=== PATIENT | female | born 1950 | race Caucasian/White ===

== ENCOUNTER 2020-08-26 15:00 | Outpatient (REF) | payer MEDICARE, SELFPAY ==
[2020-08-26 16:37] LABS: Hematocrit 39.8 % (37-47); Hemoglobin 12.3 g/dl (12.0-16.0); Mean Corpuscular HGB Conc 30.9 g/dl (31.0-35.0); Mean Corpuscular Hemoglobin 29.3 pg (27.0-33.0); Mean Corpuscular Volume 94.8 fL (80-98); Mean Platelet Volume 10.4 fL (9.4-12.3); Platelet Count 260 X10*3/uL (160-400); Red Cell Distribution Width 13.5 % (11.0-16.0); White Blood Count 7.5 X10*3/uL (4.8-10.8)
[2020-08-26 17:00] LABS: Alanine Aminotransferase 9 U/L (0-31); Albumin Level 4.5 g/dL (3.5-5.0); Alkaline Phosphatase 61 U/L (39-117); Anion Gap 12 (12-20); Aspartate Amino Transferase 13 U/L (5-31); Bilirubin Total 0.4 mg/dL (0.0-1.0); Blood Urea Nitrogen 24 mg/dL (9-16); Calcium 9.1 mg/dL (8.4-10.2); Carbon Dioxide 29 mmol/L (22-29); Chloride 107 mmol/L (96-108); Estimated Glomerular Filt Rate > 60; Glucose Random 86 mg/dL (60-115); Potassium 4.4 mmol/l (3.3-5.1); Sodium 144 mmol/L (135-145); Total Protein 7.2 g/dL (6.5-8.0)
== END 2020-08-26 15:01 | disposition home or self-care (01) ==
LOC: HO.HMGCLDS 15:00
PROVIDERS: PCP Internal Medicine; Visit Provider Internal Medicine
DX: K21.9 Gastro-esophageal reflux disease without esophagitis (principal); I10 Essential (primary) hypertension
CPT/HCPCS: 36415; 80053; 84443; 85027

== ENCOUNTER 2021-09-26 09:57 | Outpatient (REF) | payer MEDICARE, SELFPAY ==
--- NOTE | ~2021-09-26 | FL_ITS ---
EXAMINATION: FL BARIUM SWALLOW CLINICAL INFORMATION: Wheezing. Gastroesophageal reflux disease. Abnormal chest x-ray. COMPARISON: Previous chest x-ray September 2019 TECHNIQUE: Barium swallow examination is performed using fluoroscopic evaluation in addition to multiple fluoroscopic spot views. The patient is imaged both upright and prone and using both thick and thin sulfate along with effervescent granules. Barium tablet was also administered. Fluoroscopy time: 1.3 minutes DAP: 7.5 Gycm2 Images: 52 FINDINGS: The swallowing mechanism is normal. No aspiration or penetration is seen. Esophageal motility is normal. There is a moderate-size paraesophageal hernia. There is severe gastroesophageal reflux. There is mild narrowing and irregularity of the distal thoracic esophagus questionable for mild stricture. Barium tablet did not get stuck in this region and passed freely into the stomach. FL/FL barium swallow IMPRESSION: Moderate-sized paraesophageal hernia. Severe gastroesophageal reflux. Mild narrowing and mucosal irregularity of the distal thoracic esophagus questionable for a stricture. Follow-up endoscopy should be considered.
== END 2021-09-26 09:58 | disposition home or self-care (01) ==
LOC: HO.XRAY 09:57
PROVIDERS: PCP Internal Medicine; Visit Provider Internal Medicine
DX: R06.2 Wheezing (principal); K21.9 Gastro-esophageal reflux disease without esophagitis; R93.89 Abnormal findings on diagnostic imaging of other specified body structures
CPT/HCPCS: 74220

== ENCOUNTER 2022-12-21 11:45 | Emergency (ER) | payer MEDICARE, SELFPAY ==
--- NOTE | ~2022-12-21 | XR_ITS ---
EXAMINATION: XR FOOT, LEFT XR FOOT, RIGHT CLINICAL INFORMATION: Bilateral foot pain COMPARISON: None TECHNIQUE: 3 views of the left foot. 3 views of the right foot. FINDINGS: Left foot: No fracture or dislocation. Alignment maintained. Degenerative change of the tarsometatarsal articulation with osteophyte formation at the dorsal aspect of the navicular. Plantar heel spur. Mild diffuse soft tissue swelling. Right foot: No fracture or dislocation. Alignment maintained. Prominent plantar heel spur. Soft tissue swelling of the forefoot. XR/XR foot LT min 3V IMPRESSION: Bilateral plantar heel spurs. Degenerative change at the left midfoot at the tarsometatarsal articulation. Bilateral soft tissue swelling.
--- NOTE | ~2022-12-21 | XR_ITS ---
EXAMINATION: XR FOOT, LEFT XR FOOT, RIGHT CLINICAL INFORMATION: Bilateral foot pain COMPARISON: None TECHNIQUE: 3 views of the left foot. 3 views of the right foot. FINDINGS: Left foot: No fracture or dislocation. Alignment maintained. Degenerative change of the tarsometatarsal articulation with osteophyte formation at the dorsal aspect of the navicular. Plantar heel spur. Mild diffuse soft tissue swelling. Right foot: No fracture or dislocation. Alignment maintained. Prominent plantar heel spur. Soft tissue swelling of the forefoot. XR/XR foot RT min 3V IMPRESSION: Bilateral plantar heel spurs. Degenerative change at the left midfoot at the tarsometatarsal articulation. Bilateral soft tissue swelling.
[2022-12-21 11:53] VITALS: BP 111/61; BP 137/72; PULSE 75; PULSE 77; RESP 16; TEMP 36.7; O2SAT 98; BMI 27.3
[2022-12-21 12:04] VITALS: BP 111/61; PULSE 75; RESP 16; TEMP 36.7; O2SAT 98
--- NOTE | 2022-12-21 12:04 | PC.NURSE ---
pt has stage 2 pressure injuries to JOSUE buttocks - photo sent via [id number] outdoors to provider
--- NOTE | 2022-12-21 13:17 | ED_ITS ---
HPI - General Adult General Chief complaint: General Medical Stated complaint: Pain/swelling in feet and ankles per EMS Time Seen by Provider: 12/21/22 13:01 Source: patient Mode of arrival: ambulatory Limitations: no limitations History of Present Illness HPI narrative: 72-year-old female presents emergency room complaining of bilateral foot pain. She states being on for several months but worse the past 3 weeks. Patient had a bandage but on her right toe over a month ago which he has not removed she states she had some bleeding in the area she denies any falls or injuries she states she lives alone has difficulty ambulating she denies fevers chills cough or shortness of breath. Onset (ago): month(s) Location: lower extremity Related Data Allergies Allergy/AdvReac Type Severity Reaction Status Date / Time Penicillins Allergy Hives Verified 12/21/22 12:01 Review of Systems Review of Systems: Review of systems: General: Patient denies any fever chills recent illness or falls Musculoskeletal: Denies back pain or body aches or other injuries HEENT: denies headache, runny nose, ear pain Respiratory: denies shortness of breath, cough Cardiovascular: no chest pain or palpitations : denies dysuria, frequency Abdomen: no nausea vomiting denies abdominal pain Extremities: no swelling, no pain Skin: no diaphoresis Yes all other systems are reviewed and are negative PMFSH Social History Social History Alcohol intake: never Smoked in Last 30 Days: No Use of substances other than those prescribed or required for medical reasons: No Advance Directives: No Advance Directives Information Provided: No Physical Exam ED Vital Signs: Vital Signs - 24 hr 12/21/22 11:53 12/21/22 12:04 12/21/22 14:29 Temperature 98.0 F 98.0 F 98.1 F Pulse Rate 75 75 62 Respiratory Rate 16 16 18 Blood Pressure 111/61 111/61 123/61 Pulse Oximetry 98 98 95 Oxygen Delivery Method Room Air Room Air Room Air BMI result Body Mass Index 27.3 General: Well-appearing well-nourished in no signs of distress HEENT: Normocephalic atraumatic Neck: No signs of JVD, no masses no tenderness or lymphadenopathy Cardiovascular: Regular rate and rhythm Respiratory: Clear to auscultation bilaterally Abdomen: Soft nontender no masses Extremities: Normal pedal pulses no signs of edema foot pain bialteral no signs of cellululitis non tender lots of extra skin I did remove the bandage from the toe and it was tender but it was not black no redness or wound seen. Skin: Dry warm no rashes Back: No tenderness full ROM Medications Administered Discontinued Medications Generic Name Dose Route Start Last Admin Trade Name Freq PRN Reason Stop Dose Admin Sodium Chloride 1,000 mls @ 999 mls/hr 12/21/22 13:30 12/21/22 13:57 Ns IV 12/21/22 14:30 999 mls/hr .Q1H1M [facility] Administration Medical Decision Making Medical Decision Making MDM Narrative: I will check labs including CRP and ESR for osteomyelitis was CBC and BMP and feet x-rays of bilateral feet. XR and labs are all normal patient lives alone has decubitus ulcer to buttucks and need to be watched and see PT and case management for safety. Differential Diagnosis Differential Diagnoses: The differential diagnosis associated with the presentation includes Osteomyelitis chronic foot pain Lab Data 12/21/22 13:52 12/21/22 13:52 Labs: Lab Results 12/21/22 12/21/22 12/21/22 Range/Units 13:52 13:52 13:52 WBC 6.3 (4.8-10.8) X10*3/uL RBC 3.67 L (4.20-5.50) X10*6/uL Hgb 10.6 L (12.0-16.0) g/dl Hct 34.0 L (37.0-47.0) % MCV 92.6 (80.0-98.0) fL MCH 28.9 (27.0-33.0) pg MCHC 31.2 (31.0-35.0) g/dl RDW 13.4 (11.0-16.0) % Plt Count 199 (160-400) X10*3/uL MPV 10.0 (9.4-12.3) fL Immature Gran % (Auto) 0.3 (0.0-0.4) % Neut % (Auto) 77.0 H (45-73) % Lymph % (Auto) 16.0 L (20-40) % [place] % (Auto) 5.4 (2-11) % Eos % (Auto) 0.8 (0-4) % Baso % (Auto) 0.5 (0-2) % Lymph # (Auto) 1.0 L (1.2-4.9) X10*3/uL [place] # (Auto) 0.3 (0.1-1.2) X10*3/uL Eos # (Auto) 0.1 (0.0-0.4) X10*3/uL Baso # (Auto) 0.0 (0.0-0.2) X10*3/uL Abs Immat Gran (auto) 0.02 (0.00-0.03) X10*3/uL Absolute Neuts (auto) 4.9 (2.0-8.3) x10*3/uL Absolute Nucleated RBC 0.000 (0.0-0.012) X10*3/uL Nucleated RBC % (auto) 0.0 (0.0-0.2) /100WBC ESR (0-20) MM/HR Sodium 143 (135-145) mmol/L Potassium 4.3 (3.3-5.1) mmol/L Chloride 112 H (96-108) mmol/L Carbon Dioxide 28 (22-29) mmol/L Anion Gap 7 L (12-20) BUN 30 H (9-16) mg/dL Creatinine 1.04 (0.5-1.4) mg/dL Estim Creat Clear Calc 44.5 Estimated GFR 52 Random Glucose 109 (60-115) mg/dL Lactic Acid 0.9 (0.5-2.0) mmol/L Calcium 9.1 (8.4-10.2) mg/dL C-Reactive Protein 0.91 H (< or = 0.50) mg/dL 12/21/22 Range/Units 13:52 WBC (4.8-10.8) X10*3/uL RBC (4.20-5.50) X10*6/uL Hgb (12.0-16.0) g/dl Hct (37.0-47.0) % MCV (80.0-98.0) fL MCH (27.0-33.0) pg MCHC (31.0-35.0) g/dl RDW (11.0-16.0) % Plt Count (160-400) X10*3/uL MPV (9.4-12.3) fL Immature Gran % (Auto) (0.0-0.4) % Neut % (Auto) (45-73) % Lymph % (Auto) (20-40) % [place] % (Auto) (2-11) % Eos % (Auto) (0-4) % Baso % (Auto) (0-2) % Lymph # (Auto) (1.2-4.9) X10*3/uL [place] # (Auto) (0.1-1.2) X10*3/uL Eos # (Auto) (0.0-0.4) X10*3/uL Baso # (Auto) (0.0-0.2) X10*3/uL Abs Immat Gran (auto) (0.00-0.03) X10*3/uL Absolute Neuts (auto) (2.0-8.3) x10*3/uL Absolute Nucleated RBC (0.0-0.012) X10*3/uL Nucleated RBC % (auto) (0.0-0.2) /100WBC ESR 28 H (0-20) MM/HR Sodium (135-145) mmol/L Potassium (3.3-5.1) mmol/L Chloride (96-108) mmol/L Carbon Dioxide (22-29) mmol/L Anion Gap (12-20) BUN (9-16) mg/dL Creatinine (0.5-1.4) mg/dL Estim Creat Clear Calc Estimated GFR Random Glucose (60-115) mg/dL Lactic Acid (0.5-2.0) mmol/L Calcium (8.4-10.2) mg/dL C-Reactive Protein (< or = 0.50) mg/dL Discharge Plan Discharge Clinical Impression: Adult failure to thrive, Acute foot pain, Decubital ulcer Patient Disposition: Still a Patient
[2022-12-21] MEDS: 0.9 % Sodium Chloride 1,000 ML 999 ML IV (13:57)
[2022-12-21 14:01] LABS: MANUAL DIFF FLAG NO
--- NOTE | 2022-12-21 14:01 | PC.NURSE ---
pt tearful when discussing plan of care, reporting she does not want to go to a custodial but also has fears about going home without change to her feet.
[2022-12-21 14:11] LABS: Basophils Percent Auto 0.5 % (0-2); Eosinophils Absolute Auto 0.1 X10*3/uL (0.0-0.4); Eosinophils Percent Auto 0.8 % (0-4); Hemoglobin 10.6 g/dl (12.0-16.0); Imm Gran Abs Auto 0.02 X10*3/uL (0.00-0.03); Imm Gran Pct Auto 0.3 % (0.0-0.4); Mean Corpuscular HGB Conc 31.2 g/dl (31.0-35.0); Mean Corpuscular Hemoglobin 28.9 pg (27.0-33.0); Mean Corpuscular Volume 92.6 fL (80.0-98.0); Monocytes Absolute Auto 0.3 X10*3/uL (0.1-1.2); Monocytes Percent Auto 5.4 % (2-11); Neutrophils Absolute Auto 4.9 x10*3/uL (2.0-8.3); Platelet Count 199 X10*3/uL (160-400); Red Blood Count 3.67 X10*6/uL (4.20-5.50); Red Cell Distribution Width 13.4 % (11.0-16.0); White Blood Count 6.3 X10*3/uL (4.8-10.8)
[2022-12-21 14:24] LABS: Lactic Acid 0.9 mmol/L (0.5-2.0)
[2022-12-21 14:28] LABS: Anion Gap 7 (12-20); Blood Urea Nitrogen 30 mg/dL (9-16); C Reactive Protein 0.91 mg/dL (< or = 0.50); Calcium 9.1 mg/dL (8.4-10.2); Carbon Dioxide 28 mmol/L (22-29); Chloride 112 mmol/L (96-108); Creatinine Clr Calc Pharmacy 44.5; Estimated Glomerular Filt Rate 52; Glucose Random 109 mg/dL (60-115); Potassium 4.3 mmol/L (3.3-5.1); Sodium 143 mmol/L (135-145)
[2022-12-21 14:29] VITALS: BP 123/61; PULSE 62; RESP 18; TEMP 36.7; O2SAT 95
[2022-12-21 14:49] LABS: Erythrocyte Sedimentation Rate 28 MM/HR (0-20)
--- NOTE | 2022-12-21 15:35 | PC.NURSE ---
pt up to bedside commode with great difficulty. reports being unable to put pressure on her L foot
[2022-12-21 18:56] VITALS: BP 123/59; PULSE 66; RESP 14; O2SAT 98
--- NOTE | 2022-12-21 18:57 | PC.NURSE ---
pharmacy at bedside to complete med rec
--- NOTE | 2022-12-21 20:04 | PHA.MEDREC ---
Pharmacy Consult ? Medication Reconciliation Pharmacy has completed the medication reconciliation. med rec completed. spoke with patient.
--- NOTE | 2022-12-21 20:48 | PC.NURSE ---
pt agreeable to using call ruiz to let ed staff know when she needs to use restroom. pt expressed she would like to use bedpan as getting up to bedside commode is very uncomfortable for her at this time. pt given call ruiz and belongings placed within reach. pt expresses no new needs at this time
[2022-12-21 23:10] VITALS: BP 135/67; PULSE 66; RESP 16
--- NOTE | 2022-12-21 23:14 | MHC.CM.ED ---
CM met with patient at request of Dr. Liu. A&Ox4. Independent. Lives alone. No HCP. Reviewed, completed and signed. Copies given. Uploaded into Care Port and [facility] Expanse. HCP/son Nolberto Che ([phone]). Cane. [facility] grocery shops 2 hours/wk.[employer] x2/booster x2. [employer] at [facility] Amada Marcum. PT pending. Pt having difficulty with ADL's with foot pain and swelling. Medical work-up negative. Agreeable to STR if recommended. 22 referrals placed. Care Port given. Please review Care Port with bed offers to patient. Vision poor. Covid Screen Pending.. CM following for discharge planning needs.
[2022-12-21 23:32] VITALS: BP 123/55; PULSE 65; RESP 19; TEMP 36.6; O2SAT 97
--- NOTE | 2022-12-21 23:33 | MHC.EDTECH ---
PT 1x assisted off bedpan. Pt 1x with pericare. Pt bed pads changed and Pt 1x assisted with laying on right side. PT given warm blankets and call ruiz in reach
[2022-12-21 23:57] LABS: COVID-19 Test Negative (Negative); IDNOW Serial# 6674DD1D
--- NOTE | 2022-12-22 00:15 | PC.NURSE ---
pt reports to this rn acid reflux after eating dinner that was very acidic . pt asked this rn if she could get her normal dose of omeprazole 40mg po. this rn informed dr garcia of pt request. per dr jose moulton to place order
--- NOTE | 2022-12-22 00:26 | PC.NURSE ---
this rn attempted to medicate pt. pt states she does not want omeprazole as she took her scheduled dose this morning. states she would like maalox . this rn returned refused omeprazole to [facility]. this rn discussed this with dr garcia. per dr. garcia pt okay to give oral maalox kemar.
[2022-12-22] MEDS: Magnesium Hydrox/Alum Hydrox 30 ML ORAL.SUSP PO ×2 (01:33→10:27)
--- NOTE | 2022-12-22 01:38 | PC.NURSE ---
this rn assumed care of pt from triage @ 0110. iv placed in R and L ac. pt medicated according to mar. blood work obtained and sent down to lab. pt placed on tanning wheel filler. ed provider and respiratory therapist at bedside. pt placed on 3 L O2 NC spo2 94%. pt coughing up small amount of blood camryn velazquez observed this during bedside assessment. pt family member present at bedside. pt awaiting chest xray
[2022-12-22 05:52] VITALS: BP 122/67; PULSE 59; RESP 16; TEMP 36.8; O2SAT 96
[2022-12-22] MEDS: Omeprazole 40 MG CAPSULE.DR PO (08:52)
[2022-12-22] MEDS: Tolterodine Tartrate LA 4 MG CAP.ER.24H PO (08:52)
[2022-12-22] MEDS: Spironolactone 25 MG TABLET PO (08:52)
[2022-12-22] MEDS: amLODIPine Besylate 5 MG TABLET PO (08:52)
[2022-12-22 09:00] VITALS: BP 115/55; PULSE 63; RESP 18; TEMP 36.4; O2SAT 98
[2022-12-22] MEDS: Butalb/Acetamin/Caff 50/325/40 TABLET 1 TAB PO (10:32)
[2022-12-22 10:40] VITALS: BP 121/62; PULSE 63; RESP 18; O2SAT 97
[2022-12-22 10:47] LABS: MANUAL DIFF FLAG NO
[2022-12-22 10:49] LABS: Basophils Percent Auto 0.6 % (0-2); Eosinophils Absolute Auto 0.1 X10*3/uL (0.0-0.4); Hematocrit 33.1 % (37.0-47.0); Hemoglobin 10.6 g/dl (12.0-16.0); Imm Gran Abs Auto 0.02 X10*3/uL (0.00-0.03); Imm Gran Pct Auto 0.4 % (0.0-0.4); Lymphocytes Percent Auto 18.3 % (20-40); Mean Corpuscular Hemoglobin 28.9 pg (27.0-33.0); Mean Corpuscular Volume 90.2 fL (80.0-98.0); Mean Platelet Volume 9.6 fL (9.4-12.3); Monocytes Absolute Auto 0.3 X10*3/uL (0.1-1.2); Monocytes Percent Auto 4.8 % (2-11); Neutrophils Absolute Auto 3.9 x10*3/uL (2.0-8.3); Neutrophils Percent Auto 74.9 % (45-73); Platelet Count 174 X10*3/uL (160-400); Red Blood Count 3.67 X10*6/uL (4.20-5.50); Red Cell Distribution Width 13.3 % (11.0-16.0); White Blood Count 5.2 X10*3/uL (4.8-10.8)
--- NOTE | 2022-12-22 13:16 | MHC.CM.ED ---
Met with pt to discuss d/c planning: reviewed list of STR centers: Pt accepted at [facility]: Jason BLISSS to transport today at 3:30pm. Pt and ED care team in agreement with plan.
[2022-12-22 16:00] VITALS: BP 125/63; PULSE 65; RESP 16; TEMP 36.6; O2SAT 97
--- NOTE | 2022-12-22 16:00 | MHC.EDTECH ---
this pct assumed care of pt at 1500 ,1600 rounding and vitals sign taken ,pt is waiting to be transport to snf facility.
== END 2022-12-22 17:09 | disposition skilled nursing facility (03) ==
PROVIDERS: Physician Assistant; Emergency Provider Student in an Organized Health Care Education/Training Program; PCP Internal Medicine
DX: R62.7 Adult failure to thrive (principal); M79.672 Pain in left foot; M79.671 Pain in right foot; L89.620 Pressure ulcer of left heel, unstageable; L89.619 Pressure ulcer of right heel, unspecified stage; R26.81 Unsteadiness on feet; Z20.822 Contact with and (suspected) exposure to COVID-19; Z20.828 Contact with and (suspected) exposure to other viral communicable diseases; Z79.899 Other long term (current) drug therapy
CPT/HCPCS: 36415; 73630; 80048; 83605; 85025; 85652; 86140; 87635; 96360; 96361; 97161; 99284

== ENCOUNTER 2023-12-12 10:38 | Emergency (ER) | payer MEDICARE, SELFPAY ==
--- NOTE | ~2023-12-12 | XR_ITS ---
EXAMINATION: XR LUMBOSACRAL SPINE CLINICAL INFORMATION: Low back pain. COMPARISON: None available. TECHNIQUE: Three views of the lumbosacral spine. FINDINGS: Bones are osteopenic. Marked facet arthropathy is present at of L4-L5 with borderline grade 1/grade 2 anterolisthesis. Vertebral body heights are normal. No fractures. Jnjv-jx-zzeztveg multilevel degenerative disc disease is characterized by loss of vertebral disc height and endplate osteophytes, most notably at L2-L3 and L4-L5. SI joints are unremarkable. No fractures. Moderate to large volume of stool in the colon. No acute soft tissue findings. XR/XR lumbar spine 2-3V IMPRESSION: 1. Marked facet arthropathy at L4-L5 with borderline grade 1/grade 2 anterolisthesis. 2. Fogx-fs-pfqhgadb multilevel degenerative disc disease. 3. No acute fractures.
--- NOTE | 2023-12-12 10:42 | ED_ITS ---
HPI - General Adult General Chief complaint: Back Pain/Injury Stated complaint: LOW BACK PAIN,UNABLE TO AMBULATE,SEEKING REHAB Time Seen by Provider: 12/12/23 10:42 Source: patient and EMS Mode of arrival: EMS Limitations: no limitations History of Present Illness HPI narrative: Patient is a 73 year old assigned female at with a history of chronic low back pain presenting to the emergency department today with acute on chronic low back pain. Patient states that 3 weeks ago she was given gabapentin for this back pain and told by her PCP That if it does not get better in 3 weeks, she should go to the ER to be placed in short term rehab because the pain is making it difficult for her to be at home. Patient denies any dizziness, lightheadedness, abdominal pain, nausea, vomiting, fever, chills, blurry vision, double vision, loss of vision, chest pain, difficulty breathing, shortness of breath, night sweats, pain with urination, increased urinary frequency, increased urinary urgency, blood in her urine or stool, syncope or a near syncopal episode, recent trauma or falls, bowel incontinence, bladder incontinence, bowel retention, bladder retention, or any other complaints at this time. Onset (ago): month(s) Location: back Severity: mild Severity scale (1-10): 4 Relieving factors: none Exacerbating factors: none Associated symptoms: denies other symptoms Treatments prior to arrival: other (gabapentin) Related Data Home Medications Medication Instructions Recorded Confirmed acetaminophen 500 mg tablet 1,000 mg PO BEDTIME 12/21/22 12/21/22 albuterol sulfate 90 mcg/actuation 2 puff inhalation Q6H PRN wheezing 12/21/22 12/21/22 aerosol inhaler amlodipine 5 mg tablet 1 tab PO DAILY 12/21/22 12/21/22 mbiylbwmfq-avncnlqhawseb-lnnffyjn 1 tab PO BID PRN Headache 12/21/22 12/21/22 50 mg-325 mg-40 mg tablet lisinopril 40 mg tablet 1 tab PO BEDTIME 12/21/22 12/21/22 omeprazole 40 mg capsule,delayed 1 cap PO DAILY 12/21/22 12/21/22 release sodium bicarbonate 1,650 mg-citric 1 tab PO DAILY PRN Heartburn 12/21/22 12/21/22 acid 1,000 mg effervescent tablet ([place] Heartburn) solifenacin 5 mg tablet 1 tab PO DAILY 12/21/22 12/21/22 spironolactone 25 mg tablet 1 tab PO DAILY 12/21/22 12/21/22 Allergies Allergy/AdvReac Type Severity Reaction Status Date / Time Penicillins Allergy Hives Verified 12/21/22 12:01 Review of Systems 2 Constitutional: Constitutional: Reports no additional constitutional complaints, Denies chills, Denies fever(s) and Denies night sweats Eyes: Eyes: Reports no additional eye complaints, Denies blurry vision, Denies change in vision, Denies diplopia, Denies eye discharge, Denies loss of vision and Denies eye pain ENT: Denies dizziness Cardiovascular: Cardiovascular: Reports no additional cardiovascular complaints, Denies chest pain, Denies lightheadedness, Denies Loss of Consciousness and Denies dyspnea Respiratory: Respiratory: Reports no additional respiratory complaints and Denies dyspnea Gastrointestinal: Gastrointestinal: Reports no additional gastrointestinal complaints, Denies abdominal pain, Denies melena, Denies hematochezia, Denies change in bowel habits and Denies change in stool character Genitourinary: Genitourinary: Denies hematuria, Denies urinary frequency, Denies dysuria, Denies urinary incontinence, Denies urinary hesitancy and Denies urinary urgency Musculoskeletal: Musculoskeletal: Reports no additional musculoskeletal complaints, Reports back pain, Denies numbness and Denies tingling Neurologic: Denies dizziness, Denies loss of vision, Denies numbness and Denies tingling Psychiatric: Psychiatric: Reports no additional psychiatric complaints Endocrine: Endocrine: Reports no additional endocrine complaints Hematologic/Lymphatic: Hematologic/Lymphatic: Reports no additional hematologic/lymphatic complaints Allergic/Immunologic: Allergic/Immunologic: Reports no additional allergic/immunologic complaints [facility] Past Medical History Attestation statement: The following information was validated with the patient. Source: old records reviewed and nursing notes reviewed Social History Social History Alcohol intake: never Smoked in Last 30 Days: No Use of substances other than those prescribed or required for medical reasons: No Advance Directives: Yes Advance Directives on File: Yes Advance Directives Date on File: 12/22/22 Physical Exam ED Vital Signs: Vital Signs - 24 hr 12/12/23 10:49 12/12/23 10:55 12/12/23 13:11 Temperature 97.9 F 97.9 F 98 F Pulse Rate 65 65 62 Respiratory Rate 16 18 16 Blood Pressure 146/66 H 146/66 H 146/72 H Pulse Oximetry 100 100 100 Oxygen Delivery Method Room Air Room Air Room Air BMI result Body Mass Index 22.5 Const General: cooperative, no acute distress, alert and awake Nutritional Appearance: well nourished Orientation/consciousness: patient oriented x3 Limitations: no limitations HENMT Head: Yes normal to inspection and Yes atraumatic Ears: hearing grossly normal bilaterally and external ears normal General nose exam: Normal external nose present, no nasal discharge noted and no epistaxis Face and sinus: Yes normal facial exam, No abrasion and No laceration Mouth: Normal oral and palatal mucosa present, no drooling and no muffled voice Eyes General: appearance normal, both eyes and all related structures Periorbital: periorbital findings normal Eyelids: Yes eyelids normal Conjunctivae: conjunctivae normal Pupils: Equal, round and reactive pupils present EOM: EOMs intact bilaterally Neck Neck: Yes normal visual inspection, Yes full ROM and Yes no lymphadenopathy Chest Chest palpation & inspection: normal inspection of the chest Resp Effort & Inspection: normal respiratory effort and able to speak in complete sentences GI Inspection: Yes normal to inspection General: Yes no CVA tenderness Back/Spine/Pelvis Back: no CVA tenderness Cervical Spine: normal cervical lordosis and cervical ROM normal Thoracic/Lumbar Spine: thoracic and lumbar spine normal to inspection Pelvis: no pain with anterior-posterior compression Neuro General: patient oriented x3 and moves all extremities Cranial nerves: Yes Equal, round and reactive pupils present Cognition (Neuro): normal cognition Motor exam (neuro): 5/5 motor strength present throughout Sensory Exam: Normal double simultaneous stimulation for sensation Coordination: tzifvf-eo-opju test normal Extrem General: Yes normal to inspection, Yes full ROM and Yes capillary refill normal Psych Appearance: grossly normal Mental Status: mental status grossly normal Affect: normal affect Attitude: cooperative Thought process: Normal thought process present Thought content: Normal thought content present Insight: Good insight present (Psych) Medical Decision Making Medical Decision Making MDM Narrative: Patient is a 73 year old assigned female at with a history of chronic back pain presenting to the emergency department today with low back pain. Patient's physical exam was unremarkable. Patient's blood work was unremarkable. Patient's urine showed no acute process. Patient's lumbar x-ray showed no acute process. I explained my physical exam findings as well as all test results to the patient. I answered all questions asked by the patient. Patient requested to be evaluated by physical therapy and case management for short term rehab placement. Differential Diagnosis Differential Diagnoses: The differential diagnosis associated with the presentation includes Low back pain Chronic back pain Inability to ambulate Admission/Observation Consideration of admission/observation: Escalation of care including admission/observation considered Patient would have been admitted to the hospital had her work up had any findings where hospital admission was appropriate and her clinical presentation warranted hospital admission. Lab Data [facility] Lab Attestation statement: I reviewed the patient's lab results. My interpretation of these results are in the [facility] Rationale portion of this note. 12/12/23 11:31 12/12/23 11:31 Labs: Lab Results 12/12/23 12/12/23 12/12/23 Range/Units 11:31 11:33 13:08 WBC 6.2 (4.8-10.8) X10*3/uL RBC 3.75 L (4.20-5.50) X10*6/uL Hgb 11.3 L (12.0-16.0) g/dl Hct 34.9 L (37.0-47.0) % MCV 93.1 (80.0-98.0) fL MCH 30.1 (27.0-33.0) pg MCHC 32.4 (31.0-35.0) g/dl RDW 13.7 (11.0-16.0) % Plt Count 179 (160-400) X10*3/uL MPV 10.2 (9.4-12.3) fL Immature Gran % (Auto) 0.5 H (0.0-0.4) % Neut % (Auto) 75.8 H (45-73) % Lymph % (Auto) 17.8 L (20-40) % [place] % (Auto) 5.0 (2-11) % Eos % (Auto) 0.6 (0-4) % Baso % (Auto) 0.3 (0-2) % Lymph # (Auto) 1.1 L (1.2-4.9) X10*3/uL [place] # (Auto) 0.3 (0.1-1.2) X10*3/uL Eos # (Auto) 0.0 (0.0-0.4) X10*3/uL Baso # (Auto) 0.0 (0.0-0.2) X10*3/uL Abs Immat Gran (auto) 0.03 (0.00-0.03) X10*3/uL Absolute Neuts (auto) 4.7 (2.0-8.3) x10*3/uL Absolute Nucleated RBC 0.000 (0.0-0.012) X10*3/uL Nucleated RBC % (auto) 0.0 (0.0-0.2) /100WBC Sodium 143 (135-145) mmol/L Potassium 4.7 (3.3-5.1) mmol/L Chloride 111 H (96-108) mmol/L Carbon Dioxide 26 (22-29) mmol/L Anion Gap 11 L (12-20) BUN 34 H (9-16) mg/dL Creatinine 1.02 (0.5-1.4) mg/dL Estim Creat Clear Calc 37.7 Estimated GFR 53 Random Glucose 92 (60-115) mg/dL Calcium 10.0 D (8.4-10.2) mg/dL Total Bilirubin 0.3 (0.0-1.0) mg/dL AST 13 (5-31) U/L ALT 9 (0-31) U/L Alkaline Phosphatase 46 (39-117) U/L Troponin I High Sens 5.3 (<3.5-17.0) ng/L B-Natriuretic Peptide 41 (<100) pg/mL Total Protein 6.7 (6.5-8.0) g/dL Albumin 4.0 (3.5-5.0) g/dL Urine Color Yellow Urine Appearance Clear Urine pH 7.0 (5.0-9.0) Ur Specific [place] 1.020 (1.005-1.025) Urine Protein Negative (Neg-Trace) mg/dL Urine Glucose (UA) Negative (Negative) mg/dL Urine Ketones Negative (Negative) mg/dL Urine Blood Negative (Negative) Urine Nitrite Negative (Negative) Ur Leukocyte Esterase Small (1+) H (Negative) Urine RBC 0-2 (0-2) /HPF Urine WBC 0-5 (0-5) /HPF Ur Squamous Epith Cells 3-5 (0-2) /HPF Urine Bacteria None Seen (None Seen) Hyaline Casts 0-2 (0-2) /LPF Independent Interpretation I performed an independent interpretation of an: Plain X-Ray Interpretation: My interpretation is in agreement with the radiologist's impression of this imaging study. - EXAMINATION: XR LUMBOSACRAL SPINE CLINICAL INFORMATION: Low back pain. COMPARISON: None available. TECHNIQUE: Three views of the lumbosacral spine. FINDINGS: Bones are osteopenic. Marked facet arthropathy is present at of L4-L5 with borderline grade 1/grade 2 anterolisthesis. Vertebral body heights are normal. No fractures. Rmuo-yf-gvtsllvi multilevel degenerative disc disease is characterized by loss of vertebral disc height and endplate osteophytes, most notably at L2-L3 and L4-L5. SI joints are unremarkable. No fractures. Moderate to large volume of stool in the colon. No acute soft tissue findings. XR/XR lumbar spine 2-3V IMPRESSION: 1. Marked facet arthropathy at L4-L5 with borderline grade 1/grade 2 anterolisthesis. 2. Ztnu-mm-xxulvnre multilevel degenerative disc disease. 3. No acute fractures. Dictated By: N Signed By: Electronically signed by N 12/12/23 5119 Radiology Impression Discussion of test interpretation with radiology: I have reviewed the radiologist's reading. Independent Historian Clinical information obtained from an independent historian. History obtained from or confirmed by: EMS (EMS provided additional history and confirmed the history provided by the patient.) Discharge Plan Discharge Clinical Impression: Chronic low back pain Patient Disposition: Still a Patient Prescriptions: No Action amlodipine 5 mg tablet 1 tab PO DAILY omeprazole 40 mg capsule,delayed release(DR/EC) 1 cap PO DAILY spironolactone 25 mg tablet 1 tab PO DAILY ixhpexuwsu-tkrzhiymptfqe-rdzz 50-325-40 mg tablet 1 tab PO BID PRN (Reason: Headache) albuterol sulfate 90 mcg/actuation HFA aerosol inhaler 2 puff inhalation Q6H PRN (Reason: wheezing) lisinopril 40 mg tablet 1 tab PO BEDTIME solifenacin 5 mg tablet 1 tab PO DAILY acetaminophen 500 mg Tablet 1,000 mg PO BEDTIME [place] Heartburn 1,650-1,000 mg Tablet, Effervescent 1 tab PO DAILY PRN (Reason: Heartburn)
[2023-12-12 10:49] VITALS: BP 146/66; BP 146/90; PULSE 65; PULSE 70; RESP 16; TEMP 36.6; O2SAT 100; O2SAT 98; BMI 22.5
[2023-12-12 10:55] VITALS: BP 146/66; PULSE 65; RESP 18; TEMP 36.6; O2SAT 100
--- NOTE | 2023-12-12 10:56 | PC.NURSE ---
pt coming from home via EMS. pt is awake, alert and oriented. breathing even and unlabored, skin warm and dry. pt reports lower back pain since July worsening over the past couple of months. pt denies falls or injuries at that time, reports the pain started out of nowhere . PCP recommended she comes to ER for rehab placement. pt reports pain is 1/10 while at rest with increase to 10/10 with movement radiating to left hip. pt lives alone at home, having hard time ambulating.
--- NOTE | 2023-12-12 11:03 | PC.NURSE ---
pt noted to have 3 small wounds on buttock area, dried and red. pt reports these wounds are from 1 year ago from her last rehab stay.
[2023-12-12 11:35] LABS: MANUAL DIFF FLAG NO
[2023-12-12 11:39] LABS: Basophils Percent Auto 0.3 % (0-2); Eosinophils Percent Auto 0.6 % (0-4); Hematocrit 34.9 % (37.0-47.0); Hemoglobin 11.3 g/dl (12.0-16.0); Imm Gran Abs Auto 0.03 X10*3/uL (0.00-0.03); Imm Gran Pct Auto 0.5 % (0.0-0.4); Lymphocytes Absolute Auto 1.1 X10*3/uL (1.2-4.9); Lymphocytes Percent Auto 17.8 % (20-40); Mean Corpuscular HGB Conc 32.4 g/dl (31.0-35.0); Mean Corpuscular Hemoglobin 30.1 pg (27.0-33.0); Mean Corpuscular Volume 93.1 fL (80.0-98.0); Mean Platelet Volume 10.2 fL (9.4-12.3); Monocytes Absolute Auto 0.3 X10*3/uL (0.1-1.2); Neutrophils Absolute Auto 4.7 x10*3/uL (2.0-8.3); Neutrophils Percent Auto 75.8 % (45-73); Platelet Count 179 X10*3/uL (160-400); Red Blood Count 3.75 X10*6/uL (4.20-5.50); Red Cell Distribution Width 13.7 % (11.0-16.0); White Blood Count 6.2 X10*3/uL (4.8-10.8)
[2023-12-12 11:56] LABS: Alanine Aminotransferase 9 U/L (0-31); Alkaline Phosphatase 46 U/L (39-117); Anion Gap 11 (12-20); Aspartate Amino Transferase 13 U/L (5-31); Bilirubin Total 0.3 mg/dL (0.0-1.0); Blood Urea Nitrogen 34 mg/dL (9-16); Carbon Dioxide 26 mmol/L (22-29); Chloride 111 mmol/L (96-108); Creatinine Clr Calc Pharmacy 37.7; Estimated Glomerular Filt Rate 53; Glucose Random 92 mg/dL (60-115); Potassium 4.7 mmol/L (3.3-5.1); Sodium 143 mmol/L (135-145); Total Protein 6.7 g/dL (6.5-8.0)
[2023-12-12 11:57] LABS: B Type Natriuretic Peptide 41 pg/mL (<100)
[2023-12-12 12:59] LABS: Troponin-I High Sensitivity 5.3 ng/L (<3.5-17.0)
[2023-12-12 13:11] VITALS: BP 146/72; PULSE 62; RESP 16; TEMP 36.6; O2SAT 100
[2023-12-12 13:25] LABS: Appearance Urine Clear; Color Urine Yellow; Glucose Urine UA Negative (Negative); Leukocyte Esterase Urine Small (1+) (Negative); Nitrite Urine Negative (Negative); UMIC TRIGGER UACC YES; Urine Blood Negative (Negative); Urine Ketones Negative (Negative); Urine Protein Negative (Neg-Trace)
[2023-12-12 13:41] LABS: Bacteria Urine None Seen (None Seen); Hyaline Casts Urine 0-2 /LPF (0-2); RBC Urine 0-2 /HPF (0-2); UACC Culture Trigger YES; WBC Urine 0-5 /HPF (0-5)
--- NOTE | 2023-12-12 17:39 | PC.NURSE ---
Pharmacy aware of med rec
[2023-12-12 17:42] VITALS: BP 108/46; PULSE 62; RESP 16; TEMP 36.7; O2SAT 97
[2023-12-12 19:20] VITALS: BP 94/47; PULSE 66; RESP 14; TEMP 37.2; O2SAT 98
--- NOTE | 2023-12-12 20:43 | PHA.MEDREC ---
Pharmacy Consult ? Medication Reconciliation Pharmacy has completed the medication reconciliation. Patient reported medications. Angela Anderson, MaldonadoD
--- NOTE | 2023-12-12 21:06 | MHC.CM.ED ---
CM met with patient, as she came to the ED requesting rehab. States she has had worsening back pain that is effecting her life and ability to do ADL's. States she spoke with her PCP Dr. Reese, who encouraged her to come to the ED and to go to Rehab. Pt is A&Ox3. Is somewhat anxious about her difficulties at home with pain and mobility. Pt lives alone in senior housing. Has a walker. Does not drive. Has services from [facility] for [employer] 2hours/wk. 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 Patient has had no current flu or Covid vaccinations. Pt was seen last Nov for a similar back problem and went to [facility] under the [facility] waiver. PT evaluation is pending. CM explained that the [facility] waiver has and that she does not have a qualifying stay for Medicare to pay for STR. Explained that referrals could be made to Acute Rehab. If Acute rehab declines patient admission, then patient can private pay for STR. Pt does not have funds for private pay and is living on social security. CM also discussed [facility]NA with home PT as an option. Pt is hesitant regarding home PT as she had a previous bad experience with a therapist. Will place referrals for Acute rehab and request a Covid screen. Careport given to patient. CM will follow for discharge planning.
[2023-12-12 21:24] VITALS: BP 104/56; PULSE 66; RESP 15; TEMP 36.8; O2SAT 98
[2023-12-12] MEDS: lisinopriL 40 MG TABLET PO (22:08)
[2023-12-12] MEDS: Gabapentin 100 MG CAPSULE PO (22:08)
[2023-12-12] MEDS: Tolterodine Tartrate LA 4 MG CAP.ER.24H PO (22:08)
[2023-12-12] MEDS: Acetaminophen 325 MG TABLET 975 MG PO (22:08)
[2023-12-12 22:18] LABS: COVID-19 Test Negative (Negative); IDNOW Serial# 152EDE1D
[2023-12-13 06:00] VITALS: BP 100/55; PULSE 63; RESP 16; TEMP 36.6; O2SAT 100
[2023-12-13] MEDS: Omeprazole 40 MG CAPSULE.DR PO (06:32)
[2023-12-13 07:36] VITALS: BP 100/55; PULSE 63; O2SAT 100
[2023-12-13 07:55] VITALS: BP 121/62; PULSE 58; RESP 14; O2SAT 100
[2023-12-13] MEDS: amLODIPine Besylate 5 MG TABLET PO (08:11)
[2023-12-13] MEDS: Spironolactone 25 MG TABLET PO (08:11)
[2023-12-13] MEDS: Butalb/Acetamin/Caff 50/325/40 TABLET 1 TAB PO (08:11)
[2023-12-13] MEDS: Cyanocobalamin (Vitamin B-12) 1,000 MCG TABLET 1000 MCG PO (08:11)
[2023-12-13] MEDS: Cholecalciferol (Vitamin D3) 25 MCG TABLET PO (08:11)
[2023-12-13] MEDS: Gabapentin 100 MG CAPSULE PO (08:11)
--- NOTE | 2023-12-13 08:56 | PC.NURSE ---
Resumed care of patient, she is currently up and eating breakfast. She is a/ox4. PT at bedside this morning, awaiting CM for SNF placement, call ruiz within reach
--- NOTE | 2023-12-13 14:04 | MHC.CM.ED ---
Patient remains in ER overflow. Physical therapy eval completed. Acute rehab is recommended. Referral sent to all 3 acute rehab facilities. No beds can be offered at this time. Met with patient in regards to discharge planning. Patient verifies she is unable to privately pay for SNF. Patient agreeable to going home with Pao JENKINS. Jason FELDER booked for 4pm. Patient, Danyelle ALMEIDA and Philly SMITH aware. Continue to monitor for d/c needs.
--- NOTE | 2023-12-13 14:32 | PC.NURSE ---
Ambulating back and forth from bathroom with wheeled walker and steady gait. Patent changed into clothes in preparation of discharge home at 4pm
[2023-12-13 16:55] VITALS: BP 134/66; PULSE 87; RESP 18; O2SAT 98
== END 2023-12-13 17:28 | disposition home or self-care (01) ==
PROVIDERS: Nurse Practitioner Family; Physician Assistant Medical; Emergency Provider Emergency Medicine; PCP Internal Medicine
DX: M51.36 Other intervertebral disc degeneration, lumbar region (principal); G89.29 Other chronic pain; M54.50 Low back pain, unspecified; Z79.899 Other long term (current) drug therapy; Z11.52 Encounter for screening for COVID-19
CPT/HCPCS: 36415; 72100; 80053; 81001; 83880; 84484; 85025; 87086; 87635; 97162; 99284

== ENCOUNTER 2024-04-14 13:32 | Emergency (ER) | payer MEDICARE, SELFPAY ==
[2024-04-14 13:48] VITALS: BP 124/58; BP 130/70; PULSE 69; PULSE 77; RESP 18; TEMP 37; O2SAT 96; O2SAT 99; BMI 21.0
[2024-04-14 14:13] VITALS: TEMP 37.9
[2024-04-14 14:22] LABS: MANUAL DIFF FLAG NO
[2024-04-14 14:23] LABS: Basophils Percent Auto 0.5 % (0-2); Eosinophils Absolute Auto 0.1 X10*3/uL (0.0-0.4); Eosinophils Percent Auto 1.7 % (0-4); Hematocrit 31.7 % (37.0-47.0); Hemoglobin 10.4 g/dl (12.0-16.0); Imm Gran Abs Auto 0.02 X10*3/uL (0.00-0.03); Imm Gran Pct Auto 0.3 % (0.0-0.4); Lymphocytes Absolute Auto 1.1 X10*3/uL (1.2-4.9); Lymphocytes Percent Auto 18.3 % (20-40); Mean Corpuscular HGB Conc 32.8 g/dl (31.0-35.0); Mean Corpuscular Hemoglobin 30.2 pg (27.0-33.0); Mean Corpuscular Volume 92.2 fL (80.0-98.0); Mean Platelet Volume 9.6 fL (9.4-12.3); Monocytes Absolute Auto 0.3 X10*3/uL (0.1-1.2); Monocytes Percent Auto 4.4 % (2-11); Neutrophils Absolute Auto 4.3 x10*3/uL (2.0-8.3); Neutrophils Percent Auto 74.8 % (45-73); Platelet Count 180 X10*3/uL (160-400); Red Blood Count 3.44 X10*6/uL (4.20-5.50); Red Cell Distribution Width 13.8 % (11.0-16.0); White Blood Count 5.7 X10*3/uL (4.8-10.8)
[2024-04-14 14:39] LABS: Alanine Aminotransferase 7 U/L (0-31); Albumin Level 3.8 g/dL (3.5-5.0); Alkaline Phosphatase 43 U/L (39-117); Anion Gap 10 (12-20); Aspartate Amino Transferase 13 U/L (5-31); Bilirubin Total 0.2 mg/dL (0.0-1.0); Blood Urea Nitrogen 37 mg/dL (9-16); Calcium 9.9 mg/dL (8.4-10.2); Carbon Dioxide 27 mmol/L (22-29); Chloride 111 mmol/L (96-108); Creatinine Clr Calc Pharmacy 35.9; Estimated Glomerular Filt Rate 50; Glucose Random 91 mg/dL (60-115); Potassium 4.9 mmol/L (3.3-5.1); Sodium 143 mmol/L (135-145); Total Protein 6.3 g/dL (6.5-8.0)
--- NOTE | 2024-04-14 14:39 | MHC.CM.ED ---
Received telephone call from Kadie at [facility]. She can be reached via telephone at [phone] ext [phone]. Kadie has been working with patient to get [facility] Frail and Elderly approval. [facility] nurse assessment was completed today and patient will be approved for frail and elderly. Kadie will send T/W a copy of the application. Patient's PCP is Miguel Reese. She has not seen him in the office in over a year due to pain and not being able to leave her apartment. Patient has complied with virtual PCP appointments. Patient has wounds on her buttocks and feet that Jeanne is worried about. Patient has also been weak and shaky and has been experiencing hair loss. Kadie is concerned about failure to thrive. Patient has an extensive history of OCD. 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 Patient doesn't receive any services at home and does not appeared to have need any inpatient psych treatment for OCD. Work is pending. But anticipate short term rehab will be needed. Continue to monitor for d/c needs.
[2024-04-14 14:47] LABS: Appearance Urine Cloudy; Color Urine Yellow; Glucose Urine UA Negative (Negative); Leukocyte Esterase Urine Small (1+) (Negative); Nitrite Urine Negative (Negative); Specific Gravity - Urine 1.025 (1.005-1.025); UMIC TRIGGER UACC YES; Urine Blood Negative (Negative); Urine Ketones Negative (Negative); Urine Protein Negative (Neg-Trace)
[2024-04-14 14:55] LABS: Bacteria Urine 1+ (None Seen); Hyaline Casts Urine 0-2 /LPF (0-2); RBC Urine 0-2 /HPF (0-2); UACC Culture Trigger YES; WBC Urine 0-5 /HPF (0-5)
--- NOTE | 2024-04-14 15:07 | ED.WEAKNESS ---
HPI - Weakness General Chief complaint: Failure to Thrive Stated complaint: FTT,SACRAL WOUNDS,FOOT PAIN PER EMS Time Seen by Provider: 04/14/24 14:52 Source: patient and EMS Mode of arrival: EMS Limitations: no limitations History of Present Illness HPI Narrative: patient unable to walk, too weak to care for herself at home, now with buttock irineo IBARRA Complaint: generalized weakness Onset (ago): month(s) Duration: constant Location: generalized Related Data Home Medications ?Medication ?Instructions ?Recorded ?Confirmed acetaminophen 500 mg tablet 1,000 mg PO DAILY@1900 12/21/22 12/12/23 albuterol sulfate 90 mcg/actuation 2 puff inhalation Q6H PRN wheezing 12/21/22 12/12/23 aerosol inhaler amlodipine 5 mg tablet 1 tab PO DAILY 12/21/22 12/12/23 ztbmlahjye-yhzojtslpsqdr-ahnfannh 1 tab PO BID PRN Headache 12/21/22 12/12/23 50 mg-325 mg-40 mg tablet lisinopril 40 mg tablet 1 tab PO DAILY@189912/21/22 12/12/23 omeprazole 40 mg capsule,delayed 1 cap PO DAILY 12/21/22 12/12/23 release solifenacin 5 mg tablet 1 tab PO DAILY@189912/21/22 12/12/23 spironolactone 25 mg tablet 1 tab PO DAILY 12/21/22 12/12/23 cholecalciferol (vitamin D3) 25 25 mcg PO DAILY 12/12/23 12/12/23 mcg (1,000 unit) tablet cyanocobalamin (vitamin B-12) 1,000 mcg PO DAILY 12/12/23 12/12/23 1,000 mcg tablet gabapentin 100 mg capsule 100 mg PO TID@0900,1900,2300 12/12/23 12/12/23 Allergies Allergy/AdvReac Type Severity Reaction Status Date / Time Penicillins Allergy Hives Verified 04/14/24 13:54 Review of Systems Review of Systems: Yes all other systems are reviewed and are negative Neurologic: Denies Sensory deficit (Neuro) [facility] Social History Social History Alcohol intake: never Advance Directives: Yes Advance Directives on File: Yes Advance Directives Date on File: 12/22/22 Physical Exam Vital Signs: Vital Signs: Last Vital Signs Temp 100.2 F 04/14/24 14:13 Pulse 69 04/14/24 13:48 Resp 18 04/14/24 13:48 BP 124/58 L 04/14/24 13:48 Pulse Ox 96 04/14/24 13:48 O2 Del Method Room Air 04/14/24 13:48 BMI result Body Mass Index 21.0 Const: Other: patient appearing older than stated age Nutritional Appearance: average body habitus Orientation/consciousness: oriented to person and patient oriented x3 Limitations: no limitations HEENT: Head: Yes normal to inspection Ears: external ears normal General nose exam: Normal external nose present Mouth: Normal oral and palatal mucosa present and oropharynx normal Throat: Yes posterior oropharynx normal Eyes: General: appearance normal, both eyes and all related structures Neck: Other: supple Neck: Yes normal visual inspection Chest: Chest palpation & inspection: normal inspection of the chest Resp: Auscultation: clear to auscultation bilaterally Cardio: Jugular venous distension: no JVD Rate: regular rate Rhythm: regular rhythm Heart sounds: S1 normal heart sound present and S2 normal heart sound present GI: Inspection: Yes normal to inspection Palpation (GI): Soft to palpation, nontender and No hepatosplenomegaly present Auscultation: normal bowel sounds : General: Yes no CVA tenderness Back/Spine/Pelvis: Back: no CVA tenderness Skin: Other: bilateral buttock decubedii Neuro: General: oriented to person and patient oriented x3 Cranial nerves: Yes CN's II-XII intact bilaterally Motor exam (neuro): 5/5 motor strength present throughout Sensory Exam: No Sensory deficit (Neuro) Extrem: General: Yes normal to inspection Psych: Appearance: grossly normal Course Reevaluation(s) Reevaluation #1: Physician observation began at 3:00 indication patient needs to be evaluated for safety. Time is necessary to do this evaluation Time: 15:10 Medical Decision Making Differential Diagnosis Differential Diagnoses: The differential diagnosis associated with the presentation includes (sacral decubedii, cellulitis, ) Admission/Observation Consideration of admission/observation: Escalation of care including admission/observation considered (upon arrival admission was considered) Lab Data 04/14/24 14:17 04/14/24 14:17 Labs: Lab Results 06/18/24 06/18/24 Range/Units 14:17 14:34 WBC 5.7 (4.8-10.8) X10*3/uL RBC 3.44 L (4.20-5.50) X10*6/uL Hgb 10.4 L (12.0-16.0) g/dl Hct 31.7 L (37.0-47.0) % MCV 92.2 (80.0-98.0) fL MCH 30.2 (27.0-33.0) pg MCHC 32.8 (31.0-35.0) g/dl RDW 13.8 (11.0-16.0) % Plt Count 180 (160-400) X10*3/uL MPV 9.6 (9.4-12.3) fL Immature Gran % (Auto) 0.3 (0.0-0.4) % Neut % (Auto) 74.8 H (45-73) % Lymph % (Auto) 18.3 L (20-40) % [place] % (Auto) 4.4 (2-11) % Eos % (Auto) 1.7 (0-4) % Baso % (Auto) 0.5 (0-2) % Lymph # (Auto) 1.1 L (1.2-4.9) X10*3/uL [place] # (Auto) 0.3 (0.1-1.2) X10*3/uL Eos # (Auto) 0.1 (0.0-0.4) X10*3/uL Baso # (Auto) 0.0 (0.0-0.2) X10*3/uL Abs Immat Gran (auto) 0.02 (0.00-0.03) X10*3/uL Absolute Neuts (auto) 4.3 (2.0-8.3) x10*3/uL Absolute Nucleated RBC 0.000 (0.0-0.012) X10*3/uL Nucleated RBC % (auto) 0.0 (0.0-0.2) /100WBC Sodium 143 (135-145) mmol/L Potassium 4.9 (3.3-5.1) mmol/L Chloride 111 H (96-108) mmol/L Carbon Dioxide 27 (22-29) mmol/L Anion Gap 10 L (12-20) BUN 37 H (9-16) mg/dL Creatinine 1.07 (0.5-1.4) mg/dL Estim Creat Clear Calc 35.9 Estimated GFR 50 Random Glucose 91 (60-115) mg/dL Calcium 9.9 (8.4-10.2) mg/dL Total Bilirubin 0.2 (0.0-1.0) mg/dL AST 13 (5-31) U/L ALT 7 (0-31) U/L Alkaline Phosphatase 43 (39-117) U/L Total Protein 6.3 L (6.5-8.0) g/dL Albumin 3.8 (3.5-5.0) g/dL Urine Color Yellow Urine Appearance Cloudy Urine pH 5.0 (5.0-9.0) Ur Specific [place] 1.025 (1.005-1.025) Urine Protein Negative (Neg-Trace) mg/dL Urine Glucose (UA) Negative (Negative) mg/dL Urine Ketones Negative (Negative) mg/dL Urine Blood Negative (Negative) Urine Nitrite Negative (Negative) Ur Leukocyte Esterase Small (1+) H (Negative) Urine RBC 0-2 (0-2) /HPF Urine WBC 0-5 (0-5) /HPF Ur Squamous Epith Cells 11-20 (0-2) /HPF Urine Bacteria 1+ (None Seen) Hyaline Casts 0-2 (0-2) /LPF Independent Historian Clinical information obtained from an independent historian. History obtained from or confirmed by: EMS Prescription Management I considered prescription management with: Antibiotic (no evidence of UTI or cellulitis will not give abx at this time) Chronic Conditions Patient?s care impacted by: Hypertension Social Determinants Patient?s care significantly limited by Social Determinants of Health including: Inadequate housing and Low income Discharge Plan Discharge Clinical Impression: Weakness Patient Disposition: Still a Patient Prescriptions: No Action amlodipine 5 mg tablet 1 tab PO DAILY omeprazole 40 mg capsule,delayed release(DR/EC) 1 cap PO DAILY spironolactone 25 mg tablet 1 tab PO DAILY fxzjkfebbk-jlqlzxkebtbdg-whyq 50-325-40 mg tablet 1 tab PO BID PRN (Reason: Headache) albuterol sulfate 90 mcg/actuation HFA aerosol inhaler 2 puff inhalation Q6H PRN (Reason: wheezing) lisinopril 40 mg tablet 1 tab PO DAILY@1900 solifenacin 5 mg tablet 1 tab PO DAILY@1900 acetaminophen 500 mg Tablet 1,000 mg PO DAILY@1900 cyanocobalamin (vitamin B-12) 1,000 mcg tablet 1,000 mcg PO DAILY gabapentin 100 mg capsule 100 mg PO TID@0900,1900,2300 cholecalciferol (vitamin D3) 25 mcg (1,000 unit) tablet 25 mcg PO DAILY Print Language: Prydeinig
[2024-04-14 15:57] LABS: COVID-19 Test Negative (Negative); IDNOW Serial# 152EDE1D
[2024-04-14 16:07] VITALS: BP 121/63; PULSE 72; RESP 14; TEMP 36.8; O2SAT 100
--- NOTE | 2024-04-14 17:45 | MHC.CM.ED ---
Addendum entered by Ana Mtz 04/14/24 17:55: Pt is covid negative. Original Note: CM met with patient at the request of Dr. Davison. Pt is A&Ox4. Pt is weak and deconditioned. Has not been out of her home in a year. Sees PCP virtually. PCP and HCP verified. HCP on file. Son, Samuel lives in [place]. Pt lives alone. Admits that she needs help at home and physical therapy. Pt is concerned that she will need LTC. CM encouraged patient to take one step at a time. No reason to believe she will not be able to return home with help. Pt uses a walker. [phone]. Kadie has been actively helping patient with application so she can get more help at home. 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 Pt freely admits that she has some OCD-especially with clean and dirty. 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 Pt is highly motivated to work at PT to get stronger. Pt's first choice is [facility]. She has been there before. Then local referrals. Pt has just today qualified for frail elder waiver. Copy of MH application has been uploaded into [facility]. MH is pending. Referrals will be placed. CM will follow for discharge planning.
[2024-04-14 18:00] VITALS: BP 127/65; PULSE 60; RESP 16; TEMP 37.3; O2SAT 100
--- NOTE | 2024-04-14 19:36 | PHA.MEDREC ---
Pharmacy Consult ? Medication Reconciliation Pharmacy has completed the medication reconciliation. Spoke to patient to confirm med list. Patient was very Knowledgeable about her medication. Patient states she takes Butalbital-acetaminophen- caff 50-325-40 mg 1 daily and she take 1 prn. On Gabapentin 100 mg should be tid, however patient says she takes bid. Patient states she was only able to take Naproxen 375 mg daily because she doesn't eat breakfast and the told her not to take this medication to late at night due to stomach upset. she wants to take twice a day if she get breakfast.
[2024-04-14 19:41] VITALS: BP 127/62; PULSE 67; O2SAT 95
[2024-04-14] MEDS: Gabapentin 100 MG CAPSULE PO (21:57)
[2024-04-14] MEDS: Acetaminophen 325 MG TABLET 975 MG PO (21:57)
[2024-04-14 22:02] VITALS: BP 127/62
[2024-04-14] MEDS: lisinopriL 40 MG TABLET PO (22:02)
[2024-04-14] MEDS: Tolterodine Tartrate LA 4 MG CAP.ER.24H PO (22:02)
[2024-04-15] MEDS: Omeprazole 40 MG CAPSULE.DR PO (05:43)
[2024-04-15 06:00] VITALS: BP 139/64; PULSE 55; RESP 17; TEMP 36.9; O2SAT 97
[2024-04-15 07:16] VITALS: BP 118/62; PULSE 56; RESP 16; TEMP 36.8; O2SAT 99
[2024-04-15] MEDS: Cyanocobalamin (Vitamin B-12) 1,000 MCG TABLET 1000 MCG PO (07:17)
[2024-04-15] MEDS: Cholecalciferol (Vitamin D3) 25 MCG TABLET PO (07:17)
[2024-04-15] MEDS: amLODIPine Besylate 5 MG TABLET PO (07:17)
[2024-04-15] MEDS: Gabapentin 100 MG CAPSULE PO ×2 (07:18→20:35)
[2024-04-15] MEDS: NaPROXEN 250 MG TABLET PO (07:18)
[2024-04-15] MEDS: Spironolactone 25 MG TABLET PO (07:18)
[2024-04-15] MEDS: Butalb/Acetamin/Caff 50/325/40 TABLET 1 TAB PO (07:22)
--- NOTE | 2024-04-15 07:39 | PC.NURSE ---
patient resting quietly in hospital bed, alert and oriented x3. patient VSS, respirations equal and unlabored, medicated per MAR
[2024-04-15 09:05] VITALS: BP 131/66; BP 135/65; BP 142/65; PULSE 60; PULSE 65; PULSE 70
--- NOTE | 2024-04-15 10:59 | PC.NURSE ---
patient 1 assist with walker to the commode
--- NOTE | 2024-04-15 13:01 | PC.NURSE ---
ASSUMED CARE OF PT AT 1100H, SHE ATE MOST OF HER LUNCH TODAY, THOUGH STATES SHE IS NOT USED TO EATING 2 MEALS IN A DAY, FEELS UNCOMFORTABLY FULL, NAUSEATED. PT POSITIONED UPRIGHT, SHE REFUSED RX, ENCOURAGED LITTLE SIPS OF WATER. WCTM, AND PLAN TO GET HER OOB ONCE HER STOMACH IS FEELING MORE SETTLED.
[2024-04-15 13:47] VITALS: BP 110/59; PULSE 69; RESP 16; TEMP 36.4; O2SAT 98
[2024-04-15] MEDS: Magnesium Hydrox/Alum Hydrox 30 ML ORAL.SUSP PO (14:08)
--- NOTE | 2024-04-15 14:38 | MHC.CM.ED ---
Patient remains in ER overflow. Physical therapy eval completed. Short term rehab is recommended. [facility] is 1st choice. Still waiting to hear if they will be able to accept patient. Received telephone call from Ariela morgan [facility]. Patient's PCP is a [facility] provider. [facility] has an agreement with certain facilities in the area that they will pay for STR if no qualifying Medicare stay. This option will be discussed with patient if [facility]. Patient is aware we are still waiting to hear from [facility]. Continue to monitor for d/c needs.
[2024-04-15] MEDS: lisinopriL 40 MG TABLET PO (19:11)
[2024-04-15] MEDS: Acetaminophen 325 MG TABLET 975 MG PO (19:12)
[2024-04-15 20:21] VITALS: BP 117/63; PULSE 65; RESP 18; TEMP 37; O2SAT 99
[2024-04-15] MEDS: Tolterodine Tartrate LA 4 MG CAP.ER.24H PO (20:35)
--- NOTE | 2024-04-15 21:05 | PC.NURSE ---
PT HAS USED BEDSIDE COMMODE TODAY SEVERAL TIMES TO VOID, NO BM TODAY. SHE REPORTED SEVERE POSTPRANDIAL GI DISCOMFORT TODAY, RELIEVED EARLIER BY [facility]. [facility] CONTACTED FOR ONGOING PRN ORDERS. SACRAL WOUND CLEANSED TODAY, WITH A NEW DRESSING. PT ABLE TO REPOSITION HERSELF FOR THE MOST PART, THOUGH HAS BEEN RESISTANT TO PROPOSITIONS TO MOVE TO SIDELYING POSITION FOR PRESSURE RELIEF.
--- NOTE | 2024-04-15 22:15 | MHC.EDTECH ---
patient resting quietly in bed watching Tv. Reports nausea and abdominal pain post dinner. RN aware Vital signs within normal limits. patient is a 1 assist out of the bed to the commode with rolling walker. had a moderate size bm. bandage on coccyx intact
--- NOTE | 2024-04-15 23:00 | MHC.EDTECH ---
THIS PCT ASSUMED CARE OF PATIENT AT 2300 ,PATIENT SLEEPING ,CALL NORIEGA WITHIN PATIENT REACH .
--- NOTE | 2024-04-16 01:07 | MHC.EDTECH ---
PATIENT AWAKE RANG TO USE BEDSIDE COMMODE .VOID AND WAS ASSISTED BACK TO BED .
[2024-04-16 04:46] VITALS: BP 137/63; PULSE 67; RESP 16; TEMP 36.2; O2SAT 98
--- NOTE | 2024-04-16 04:46 | MHC.EDTECH ---
Patient awake ,rang to use bedside commode ,was assisted ,void and was assisted back to bed ,vitals taken ,Call ruiz within Pt reach .
[2024-04-16] MEDS: Omeprazole 40 MG CAPSULE.DR PO (06:04)
[2024-04-16] MEDS: Butalb/Acetamin/Caff 50/325/40 TABLET 1 TAB PO (09:21)
[2024-04-16] MEDS: Gabapentin 100 MG CAPSULE PO ×2 (09:22→21:32)
[2024-04-16] MEDS: Cyanocobalamin (Vitamin B-12) 1,000 MCG TABLET 1000 MCG PO (09:22)
[2024-04-16] MEDS: NaPROXEN 250 MG TABLET PO (09:22)
[2024-04-16 09:23] VITALS: BP 137/63
[2024-04-16] MEDS: Spironolactone 25 MG TABLET PO (09:23)
[2024-04-16] MEDS: amLODIPine Besylate 5 MG TABLET PO (09:23)
[2024-04-16] MEDS: Cholecalciferol (Vitamin D3) 25 MCG TABLET PO (09:23)
--- NOTE | 2024-04-16 11:35 | MHC.CM.ED ---
Addendum entered by Helen Clarke 04/16/24 15:27: Received notification from [facility] that they are unable to accept patient under [facility] Waiver because patient is not in a [facility] hospital. [facility] is able to offer a bed. This option will discussed with patient. Original Note: [facility] remains [facility] ER overflow[facility] and [facility] are unable to accept under [facility] pending. [facility] is able to offer a bed. Patient accepts bed offer. MDS and Level 1 completed. Faxed to [facility] and sent to [facility] via [employer]. Continue to monitor for d/c needs.
[2024-04-16 19:25] VITALS: BP 125/57
[2024-04-16] MEDS: Magnesium Hydrox/Alum Hydrox 30 ML ORAL.SUSP PO (19:25)
[2024-04-16] MEDS: lisinopriL 40 MG TABLET PO (19:25)
[2024-04-16] MEDS: Acetaminophen 325 MG TABLET 975 MG PO (19:25)
[2024-04-16 20:09] VITALS: BP 125/57; PULSE 70; RESP 18; TEMP 36; O2SAT 97
[2024-04-16] MEDS: Tolterodine Tartrate LA 4 MG CAP.ER.24H PO (21:32)
[2024-04-17] MEDS: Omeprazole 40 MG CAPSULE.DR PO (05:42)
[2024-04-17 06:12] VITALS: BP 102/52; PULSE 60; RESP 18; TEMP 36.6; O2SAT 98
--- NOTE | 2024-04-17 08:35 | MHC.CM.ED ---
Addendum entered by Helen Clarke 04/17/24 12:52: Jason [facility]EL[facility] booked for 4pm. [facility]. Patient, Maxine RN and Bam SMITH aware. Original Note: Patient remains in ER overflow. Patient accepts bed at [facility]. T/W spoke with Heidi of [facility]. Heidi verifies they are still able to offer a bed. Symone Candelario of [facility] made aware of facility change. Still waiting for [facility] from [facility]. Continue to monitor for d/c needs.
[2024-04-17 08:41] VITALS: BP 130/66
[2024-04-17] MEDS: Gabapentin 100 MG CAPSULE PO (08:41)
[2024-04-17] MEDS: amLODIPine Besylate 5 MG TABLET PO (08:41)
[2024-04-17 08:42] VITALS: BP 130/66
[2024-04-17] MEDS: NaPROXEN 250 MG TABLET PO (08:42)
[2024-04-17] MEDS: Cholecalciferol (Vitamin D3) 25 MCG TABLET PO (08:42)
[2024-04-17] MEDS: Cyanocobalamin (Vitamin B-12) 1,000 MCG TABLET 1000 MCG PO (08:42)
[2024-04-17] MEDS: Spironolactone 25 MG TABLET PO (08:42)
[2024-04-17] MEDS: Butalb/Acetamin/Caff 50/325/40 TABLET 1 TAB PO (08:44)
[2024-04-17 14:00] VITALS: BP 105/55; PULSE 72; RESP 18; TEMP 37.2; O2SAT 90
[2024-04-17 16:16] VITALS: BP 105/55; PULSE 72; RESP 16; TEMP 37.1
== END 2024-04-17 16:17 | disposition still patient (30) ==
PROVIDERS: Emergency Provider Emergency Medicine; PCP Internal Medicine
DX: R53.1 Weakness (principal); L89.329 Pressure ulcer of left buttock, unspecified stage; L89.319 Pressure ulcer of right buttock, unspecified stage; Z79.899 Other long term (current) drug therapy
CPT/HCPCS: 36415; 80053; 81001; 85025; 87086; 87635; 97162; 99285

== ENCOUNTER 2024-05-26 09:52 | Emergency (ER) | payer MEDICARE, SELFPAY ==
--- NOTE | ~2024-05-26 | CT_ITS ---
EXAMINATION: CT LUMBAR SPINE WITHOUT CONTRAST CLINICAL INFORMATION: Rule out compression fracture. COMPARISON: None available. TECHNIQUE: Multidetector helical imaging acquired in the axial plane with generation of reformatted acquisitions. This CT examination was performed using dose optimization techniques as appropriate, variously including the following: *Automated exposure control *Adjustment of mA and/or kV according to patient size (this includes techniques or standardized protocols for targeted exams where dose is matched to indication/reason for exam; i.e. extremities or head) *Use of iterative reconstruction technique DLP; 291 mGy-cm FINDINGS: Diffuse bony demineralization evident. No compression fractures are identified. No acute fracture is seen. There is mild disc space narrowing and anterior endplate spurring with vacuum disc phenomenon at the T12-L1 level. There is a mild anterolisthesis at the L4-L5 level with intradiscal calcification and hypertrophic facet arthropathy. No significant central canal stenosis evident. Facet arthrosis is more significant in the lower lumbar spine, though with only mild foraminal encroachment. No large disc protrusions are seen, though evaluation is limited with CT imaging. Degenerative disc bulges mildly impress upon the ventral thecal sac. There is mild central canal stenosis at the L4-L5 level. The paraspinal soft tissues are unremarkable. Incidental multiple small gallstones layer within the gallbladder. Sigmoid colonic diverticulosis is visible. There are moderate degenerative changes of the sacroiliac joints with vacuum phenomenon and ossific spurring. CT/CT lumbar spine wo IV con IMPRESSION: Diffuse osseous demineralization. No compression fractures or acute process. Multilevel spondylosis without significant central canal stenosis. Mild anterolisthesis at the L4-L5 level multilevel facet arthropathy and degenerative disc bulges. Incidental cholelithiasis.
[2024-05-26 09:57] VITALS: BP 132/62; BP 158/78; PULSE 67; PULSE 76; RESP 18; TEMP 37; O2SAT 100; O2SAT 98; BMI 22.9
--- NOTE | 2024-05-26 10:09 | PC.NURSE ---
patient arrives via EMS from home, per patient she was recently released from rehab for her back, she was doing laundry on saturday and attempted to lift her laundry basket an felt a shooting pain in her back again. patient denies any falls or head strike.
--- NOTE | 2024-05-26 11:33 | MHC.EDTECH ---
This tech ansswered call ruiz. Patient states having to urinate. Obtain commode and assist patient from bed to commode. Patient visibly tearful and crying out with movement. This tech also removed EMS blankets, assisted patient with changing to hospital attire.
[2024-05-26 12:00] VITALS: BP 144/69; PULSE 64; RESP 16; TEMP 36.8; O2SAT 99
--- NOTE | 2024-05-26 13:01 | ED_ITS ---
HPI - Back Pain/Injury General Chief Complaint: Back Pain/Injury Stated Complaint: back pain x5 days Time Seen by Provider: 05/26/24 12:04 Source: patient Limitations: no limitations History of Present Illness ED Provider: Chanel Dyson PA-C HPI Narrative: 73-year-old female with known osteoarthritis of her hips and spine, presents with back pain. Patient states she was recently discharged from rehab after a prolonged stay secondary to back pain and deconditioning. Patient states her mobility returned to baseline. Four days ago, patient states she was picking up a basket of laundry when she developed acute low back pain. Pain seems to be primarily right-sided with radiation down the backside of her leg. Her pain has progressed in severity, she is having extreme pain with transitioning from lying to sitting then sitting to standing. Patient states she was on her couch, she could not get up, she in turn called for assistance to her home. Denies paresthesia, weakness of lower extremities, urinary retention or bowel incontinence. Related Data Home Medications ?Medication ?Instructions ?Recorded ?Confirmed acetaminophen 500 mg tablet 1,000 mg PO DAILY@1900 12/21/22 04/14/24 albuterol sulfate 90 mcg/actuation 2 puff inhalation Q6H PRN wheezing 12/21/22 04/14/24 aerosol inhaler amlodipine 5 mg tablet 1 tab PO DAILY 12/21/22 04/14/24 sbuioixunz-eowikamfqerzb-idlmnvse 1 tab PO BID PRN Migraine Headache 12/21/22 04/14/24 50 mg-325 mg-40 mg tablet lisinopril 40 mg tablet 1 tab PO DAILY@1900 12/21/22 04/14/24 omeprazole 40 mg capsule,delayed 1 cap PO DAILY@0612/21/22 04/14/24 release solifenacin 5 mg tablet 1 tab PO BEDTIME 12/21/22 04/14/24 spironolactone 25 mg tablet 1 tab PO DAILY 12/21/22 04/14/24 cholecalciferol (vitamin D3) 25 25 mcg PO DAILY 12/12/23 04/14/24 mcg (1,000 unit) tablet cyanocobalamin (vitamin B-12) 1,000 mcg PO DAILY 12/12/23 04/14/24 1,000 mcg tablet gabapentin 100 mg capsule 100 mg PO BID 12/12/23 04/14/24 naproxen 375 mg tablet 375 mg PO BID 04/14/24 04/14/24 Previous Rx's ?Medication ?Instructions ?Recorded dnfvvbwhov-gvudpolvjoete-btzqtlfk 1 cap PO Q6H PRN pain #20 caps 04/17/24 50 mg-300 mg-40 mg capsule efoqphpxlq-cyjsozewgeoqj-zrsindhi 1 cap PO Q6H PRN pain 5 days #20 04/17/24 50 mg-300 mg-40 mg capsule caps (Fioricet) Allergies Allergy/AdvReac Type Severity Reaction Status Date / Time Penicillins Allergy Hives Verified 05/26/24 10:05 Review of Systems 2 Review of Systems: Yes all other systems are reviewed and are negative Constitutional: Constitutional: Denies fever(s) Cardiovascular: Cardiovascular: Denies chest pain and Denies dyspnea Respiratory: Respiratory: Denies dyspnea Gastrointestinal: Gastrointestinal: Denies abdominal pain Musculoskeletal: Musculoskeletal: Reports back pain, Denies muscle weakness, Denies numbness, Reports radiating pain into limb and Denies tingling Integumentary/Breasts: Skin/Breast: Denies rash Neurologic: Denies numbness and Denies tingling PMFSH Past Medical History Attestation statement: The following information was validated with the patient. Social History Social History Alcohol intake: never Smoked in Last 30 Days: No Use of substances other than those prescribed or required for medical reasons: No Advance Directives: Yes Advance Directives on File: Yes Advance Directives Date on File: 12/22/22 Do you have a plan to hurt others: No Plan Physical Exam 2 Vital Signs: Vital Signs: Last Vital Signs Temp 98.6 F 05/26/24 16:42 Pulse 68 05/26/24 16:42 Resp 12 05/26/24 16:42 BP 131/66 05/26/24 16:42 Pulse Ox 99 05/26/24 16:42 O2 Del Method Room Air 05/26/24 16:42 BMI result Body Mass Index 22.9 Const: Other: Alert, well in appearance, cachectic Orientation/consciousness: patient oriented x3 Resp: Other: Nonlabored respiration Cardio: Other: Normal peripheral perfusion, radial pulses +2 Skin: Other: Warm dry no rash Neuro: General: patient oriented x3, moves all extremities, no focal motor deficits and CN's II-XI intact bilaterally Extrem: Other: Strength 5/5 bilateral lower extremities, minimal straight leg raise bilaterally, left greater than right, secondary to pain Psych: Other: Anxious Course Course Course Narrative: 73-year-old female with known osteoarthritis of her hips and spine, presents with back pain. Patient states she was recently discharged from rehab after a prolonged stay secondary to back pain and deconditioning. Patient states her mobility returned to baseline. Four days ago, patient states she was picking up a basket of laundry when she developed acute low back pain. Pain seems to be primarily right-sided with radiation down the backside of her leg. Her pain has progressed in severity, she is having extreme pain with transitioning from lying to sitting then sitting to standing. Patient states she was on her couch, she could not get up, she in turn called for assistance to her home. Denies paresthesia, weakness of lower extremities, urinary retention or bowel incontinence. Problem: Known osteoarthritis of her back and hips History: Per patient I have considered the following differential diagnoses: Epidural abscess, cauda equina, compression fracture, dissection, sciatic Plan: Given the patient has a known significant arthritis, and now has a mechanism of injury, I am most concerned for potential compression fracture. We will obtain a CT scan, giving methocarbamol for her pain. The patient does not having red flag signs symptoms concerning for cord compression, and she also has no risk factors for epidural abscess. She is having symptoms consistent with sciatica. If the CT scan is negative the plan will be to ambulate the patient, if she is at her baseline, she could potentially go home. However she may require Rehab again. I have independently reviewed the following tests: Labs: No leukocytosis, no anemia, no electrolyte abnormality, urine not infected CT lumbar spine: Reevaluation(s) Reevaluation #1: Nursing reports that patient is a to assist to stand up and walk, patient does not feel comfortable going home. She was recently at rehab. Unable to ambulate on her own. Still in pain. At this time patient will be placed into observation to allow more time to be evaluated by physical therapy and case management. Time: 18:52 Medications Administered Discontinued Medications Generic Name Dose Route Start Last Admin Trade Name Freq PRN Reason Stop Dose Admin Lidocaine 1 patch 05/26/24 17:17 05/26/24 18:04 Lidocaine 4 % Patch Adh..Patch TRANSDERMA 05/26/24 17:18 1 patch ONCE ONE Administration Protocol Methocarbamol 750 mg 05/26/24 13:10 05/26/24 13:13 Methocarbamol 750 Mg Tablet PO 05/26/24 13:11 750 mg ONCE ONE Administration Medical Decision Making Lab Data 05/26/24 13:17 05/26/24 13:17 Labs: Lab Results 05/26/24 Range/Units 13:17 WBC 6.8 (4.8-10.8) X10*3/uL RBC 3.11 L (4.20-5.50) X10*6/uL Hgb 9.5 L (12.0-16.0) g/dl Hct 29.7 L (37.0-47.0) % MCV 95.5 (80.0-98.0) fL MCH 30.5 (27.0-33.0) pg MCHC 32.0 (31.0-35.0) g/dl RDW 14.8 (11.0-16.0) % Plt Count 153 L (160-400) X10*3/uL MPV 10.2 (9.4-12.3) fL Immature Gran % (Auto) 0.3 (0.0-0.4) % Neut % (Auto) 79.0 H (45-73) % Lymph % (Auto) 10.9 L (20-40) % [place] % (Auto) 7.6 (2-11) % Eos % (Auto) 1.9 (0-4) % Baso % (Auto) 0.3 (0-2) % Lymph # (Auto) 0.7 L (1.2-4.9) X10*3/uL [place] # (Auto) 0.5 (0.1-1.2) X10*3/uL Eos # (Auto) 0.1 (0.0-0.4) X10*3/uL Baso # (Auto) 0.0 (0.0-0.2) X10*3/uL Abs Immat Gran (auto) 0.02 (0.00-0.03) X10*3/uL Absolute Neuts (auto) 5.4 (2.0-8.3) x10*3/uL Absolute Nucleated RBC 0.000 (0.0-0.012) X10*3/uL Nucleated RBC % (auto) 0.0 (0.0-0.2) /100WBC Sodium 141 (135-145) mmol/L Potassium 4.5 (3.3-5.1) mmol/L Chloride 111 H (96-108) mmol/L Carbon Dioxide 24 (22-29) mmol/L Anion Gap 11 L (12-20) BUN 19 H (9-16) mg/dL Creatinine 0.76 (0.5-1.4) mg/dL Estim Creat Clear Calc 50.6 Estimated GFR > 60 Random Glucose 84 (60-115) mg/dL Calcium 9.6 (8.4-10.2) mg/dL Total Bilirubin 0.3 (0.0-1.0) mg/dL AST 13 (5-31) U/L ALT 10 (0-31) U/L Alkaline Phosphatase 62 (39-117) U/L Total Protein 6.2 L (6.5-8.0) g/dL Albumin 3.7 (3.5-5.0) g/dL Discharge Plan Discharge Clinical Impression: Sciatica Prescriptions: No Action amlodipine 5 mg tablet 1 tab PO DAILY omeprazole 40 mg capsule,delayed release(DR/EC) 1 cap PO DAILY@0630 spironolactone 25 mg tablet 1 tab PO DAILY qgxdzxggck-esvnonxxzcutw-fmxg 50-325-40 mg tablet 1 tab PO BID PRN (Reason: Migraine Headache) albuterol sulfate 90 mcg/actuation HFA aerosol inhaler 2 puff inhalation Q6H PRN (Reason: wheezing) lisinopril 40 mg tablet 1 tab PO DAILY@1900 solifenacin 5 mg tablet 1 tab PO BEDTIME acetaminophen 500 mg Tablet 1,000 mg PO DAILY@1900 naproxen 375 mg tablet 375 mg PO BID dwluqtloze-yjuccqjcgyoap-cygk [Fioricet] 50-300-40 mg capsule 1 cap PO Q6H PRN (Reason: pain) 5 Days Qty: 20 0RF rwgbgfxbdl-mozuejrkhqcnc-degs 50-300-40 mg capsule 1 cap PO Q6H PRN (Reason: pain) Qty: 20 0RF cyanocobalamin (vitamin B-12) 1,000 mcg tablet 1,000 mcg PO DAILY gabapentin 100 mg capsule 100 mg PO BID cholecalciferol (vitamin D3) 25 mcg (1,000 unit) tablet 25 mcg PO DAILY Print Language: Omani
[2024-05-26] MEDS: methocarbamoL 750 MG TABLET PO (13:13)
[2024-05-26 13:23] LABS: MANUAL DIFF FLAG NO
[2024-05-26 13:24] LABS: Basophils Percent Auto 0.3 % (0-2); Eosinophils Absolute Auto 0.1 X10*3/uL (0.0-0.4); Eosinophils Percent Auto 1.9 % (0-4); Hematocrit 29.7 % (37.0-47.0); Hemoglobin 9.5 g/dl (12.0-16.0); Imm Gran Abs Auto 0.02 X10*3/uL (0.00-0.03); Imm Gran Pct Auto 0.3 % (0.0-0.4); Lymphocytes Absolute Auto 0.7 X10*3/uL (1.2-4.9); Lymphocytes Percent Auto 10.9 % (20-40); Mean Corpuscular Hemoglobin 30.5 pg (27.0-33.0); Mean Corpuscular Volume 95.5 fL (80.0-98.0); Mean Platelet Volume 10.2 fL (9.4-12.3); Monocytes Absolute Auto 0.5 X10*3/uL (0.1-1.2); Monocytes Percent Auto 7.6 % (2-11); Neutrophils Absolute Auto 5.4 x10*3/uL (2.0-8.3); Platelet Count 153 X10*3/uL (160-400); Red Blood Count 3.11 X10*6/uL (4.20-5.50); Red Cell Distribution Width 14.8 % (11.0-16.0); White Blood Count 6.8 X10*3/uL (4.8-10.8)
[2024-05-26 13:48] LABS: Alanine Aminotransferase 10 U/L (0-31); Albumin Level 3.7 g/dL (3.5-5.0); Alkaline Phosphatase 62 U/L (39-117); Anion Gap 11 (12-20); Aspartate Amino Transferase 13 U/L (5-31); Bilirubin Total 0.3 mg/dL (0.0-1.0); Blood Urea Nitrogen 19 mg/dL (9-16); Calcium 9.6 mg/dL (8.4-10.2); Carbon Dioxide 24 mmol/L (22-29); Chloride 111 mmol/L (96-108); Creatinine Clr Calc Pharmacy 50.6; Estimated Glomerular Filt Rate > 60; Glucose Random 84 mg/dL (60-115); Potassium 4.5 mmol/L (3.3-5.1); Sodium 141 mmol/L (135-145); Total Protein 6.2 g/dL (6.5-8.0)
[2024-05-26 14:42] VITALS: BP 150/82; PULSE 74; RESP 12; TEMP 37.2; O2SAT 100
[2024-05-26 16:42] VITALS: BP 131/66; PULSE 68; RESP 12; TEMP 37; O2SAT 99
[2024-05-26] MEDS: Lidocaine 4 % Patch ADH..PATCH 1 PATCH TRANSDERMA (18:04)
--- NOTE | 2024-05-26 18:35 | PC.NURSE ---
patient provided with dinner tray
--- NOTE | 2024-05-26 19:26 | PC.NURSE ---
Assumed care of pt. Pt lying on stretcher, no acute distress at this time. Pt aware of plan of care for xfer to Overflow, and evaluation by PT/CM.
[2024-05-26 19:27] VITALS: BP 147/83; PULSE 72; RESP 14; TEMP 37.8; O2SAT 99
--- NOTE | 2024-05-26 20:02 | PC.NURSE ---
This RN assumed pt care @ 1999 Pt ca&ox4, no signs of distress. Pt assisted to bedside commode and then back into bed for comfort by this RN and tech. Pt requested and given cell phone and side table placed within reach. Purewick placed. Plan of care ongoing.
--- NOTE | 2024-05-26 20:27 | PC.NURSE ---
CM (Berna) with pt. Per Berna pt very worried about her med rec. This RN spoke with Fabiola at pharmacy regarding getting pts med rec done. Pt advised regarding med rec. Plan of care ongoing.
--- NOTE | 2024-05-26 20:39 | PC.NURSE ---
This RN assumed pt care @ 2034 Pt ca&ox4, no signs of distress. Pt reports pain when she moves. Arian placed on pt. Plan of care ongoing.
--- NOTE | 2024-05-26 21:11 | PHA.MEDREC ---
Pharmacy Consult ? Medication Reconciliation Pharmacy has completed the medication reconciliation. Spoke to patient who knew all their medications including dose, frequency and indication. Patient tylenol TONY as well as naproxen TONY for back pain and fioricet PRN for migraine.
--- NOTE | 2024-05-26 22:25 | MHC.CM.ED ---
Addendum entered by Ana Mtz 05/26/24 22:47: HCP on file. Referral to [facility] made at patient request. Addendum entered by Ana Mtz 05/26/24 22:35: HCP on file. Son Nolberto lives in [place]. Original Note: CM met with patient at the request of Inocencia SMITH. Pt is A&Ox4. Was recently at [facility] from 04/17-05/11 for a back injury. She has [facility] for home PT. Just have the assessment with PT to start next week. Pt was lifting laundry and hurt her back again on Saturday. It progressively got worse over the weekend and now she is having difficulty ambulating without assistance. Pt lives alone in low income housing. She has a walker and a laundry services. She is active with [facility] and has a social media marketer, Kadie Swan. She has a [employer]AL [employer] TRUCK DRIVER for groceries. [facility] is working on a LOCAL [employer] TRUCK DRIVER for housekeeping. Pt has a handicapped accessible shower. Pt states she has completed the MH application and has just recently submitted additional paperwork to them. Her MH is still not active on the MH website. Pt is concerned because she has used up 25 of her Medicare days and cannot any percentage for STR, as she is on a fixed income. CM reviewed Medicare benefits for STR with patient. Pt is agreeable for PT evaluation and is hoping to go home with her services if she can ambulated in the morning. Pt is agreeable to return to [facility] if she cannot ambulate. CM will follow for discharge planning. D/C plan is home with existing services with [facility] vs STR. No referrals placed at this time pending PT evaluation and further discussion with patient.
--- NOTE | 2024-05-27 00:19 | PC.NURSE ---
Pt reporting unable to use purewick Purewick removed. Requested to sit on the commode. Pt assisted to commode Plan of care ongoing.
--- NOTE | 2024-05-27 03:16 | PC.NURSE ---
Pt reporting pain. Provider Ryder notified and aware. Plan of care ongoing.
[2024-05-27 03:57] VITALS: BP 154/77; PULSE 67; RESP 18; TEMP 36.2; O2SAT 99
--- NOTE | 2024-05-27 04:55 | PC.NURSE ---
Dr Ryder, gave this RN order via [facility] tx for Acetaminophen 650mg. Plan of care ongoing.
--- NOTE | 2024-05-27 06:39 | PC.NURSE ---
Pt sleeping order for tylenol not given. Pt asked about the tylenol when lido patch removed, pt stated will wait till after breakfast. Plan of care ongoing.
--- NOTE | 2024-05-27 07:44 | PC.NURSE ---
assumed care of patient, patient is alert and oriented x3, skin dry and intact, respirations equal and unlabroed. PT currently at bedside. patient up to commode with this RN 1 assist. patient states she has trouble pivoting due to back pain
[2024-05-27 08:05] VITALS: BP 154/77; PULSE 67; O2SAT 99
[2024-05-27 08:21] VITALS: BP 129/62; PULSE 71; RESP 18; TEMP 37.6; O2SAT 100
[2024-05-27] MEDS: Acetaminophen 325 MG TABLET 975 MG PO ×2 (08:24→21:51)
[2024-05-27] MEDS: Gabapentin 100 MG CAPSULE PO ×3 (08:24→21:51)
[2024-05-27] MEDS: amLODIPine Besylate 5 MG TABLET PO (08:25)
[2024-05-27] MEDS: Cholecalciferol (Vitamin D3) 25 MCG TABLET PO (08:25)
[2024-05-27] MEDS: Omeprazole 40 MG CAPSULE.DR PO (08:25)
--- NOTE | 2024-05-27 08:48 | MHC.CM.ED ---
Patient remains in overflow. Physical therapy eval completed. Short term rehab is recommended. Clinical update sent to [facility] to see if they can accept patient back. Continue to monitor for d/c needs.
[2024-05-27] MEDS: NaPROXEN 250 MG TABLET PO (08:56)
[2024-05-27] MEDS: Cyclobenzaprine HCl 5 MG TABLET PO ×2 (08:56→21:52)
[2024-05-27] MEDS: Cyanocobalamin (Vitamin B-12) 1,000 MCG TABLET 1000 MCG PO (08:56)
[2024-05-27] MEDS: Calcium Carbonate 750 MG TAB.CHEW PO ×2 (14:19→19:12)
--- NOTE | 2024-05-27 14:25 | PC.NURSE ---
patient up to commode with this RN standby, patient steady. got herself on and off commode and back into bed. patient tucked in, resting quietly.
[2024-05-27 16:20] LABS: COVID-19 Test Negative (Negative); IDNOW Serial# 08D9AD1C
[2024-05-27 16:59] VITALS: BP 128/68; PULSE 70; RESP 16; TEMP 37.4; O2SAT 99
--- NOTE | 2024-05-27 17:08 | PC.NURSE ---
patient is awake and alert, respirations equal and unlabored. patient sitting up in bed eating dinner
[2024-05-27] MEDS: Butalb/Acetamin/Caff 50/325/40 TABLET 1 TAB PO (18:06)
[2024-05-27] MEDS: Tolterodine Tartrate LA 4 MG CAP.ER.24H PO (21:52)
[2024-05-27 21:53] VITALS: BP 148/73
[2024-05-27] MEDS: lisinopriL 40 MG TABLET PO (21:53)
[2024-05-27 21:54] VITALS: BP 148/73; PULSE 76; RESP 18; TEMP 36.7; O2SAT 99
[2024-05-28] MEDS: Omeprazole 40 MG CAPSULE.DR PO (06:01)
[2024-05-28 06:06] VITALS: BP 108/62; PULSE 57; RESP 16; TEMP 36.3; O2SAT 96
--- NOTE | 2024-05-28 06:07 | MHC.EDTECH ---
Patient slept most of the night ,up once ,void and back to bed .
[2024-05-28] MEDS: Acetaminophen 325 MG TABLET 975 MG PO ×2 (09:40→20:05)
[2024-05-28] MEDS: Gabapentin 100 MG CAPSULE PO ×3 (09:40→20:05)
[2024-05-28 09:41] VITALS: BP 116/56
[2024-05-28] MEDS: amLODIPine Besylate 5 MG TABLET PO (09:41)
[2024-05-28] MEDS: Cholecalciferol (Vitamin D3) 25 MCG TABLET PO (09:41)
[2024-05-28] MEDS: Cyclobenzaprine HCl 5 MG TABLET PO ×2 (10:03→20:54)
[2024-05-28] MEDS: Cyanocobalamin (Vitamin B-12) 1,000 MCG TABLET 1000 MCG PO (10:03)
[2024-05-28] MEDS: NaPROXEN 250 MG TABLET PO (10:31)
--- NOTE | 2024-05-28 11:09 | PC.NURSE ---
Patient reported a sharp pain in her right buttock. In assessing the area it was determined that she has a stage 2 Pressure injury to her inner right buttock. There is also evidence of a healing stage 2 pressure injury on the inner left buttock. 5x5 allevyn patches were placed over each affected area. Patient reports relief from the pain after application. Provider notified
--- NOTE | 2024-05-28 12:31 | MHC.CM.ED ---
Patient remains in ER overflow. Received notification from [facility] that they do not have a female bed at this time. They will follow for when they do. Referral broadcasted at this time within 25 miles. Will need to go to short term rehab under [facility] pending. Continue to monitor for d/c needs.
[2024-05-28 14:00] VITALS: BP 104/63; PULSE 77; RESP 18; TEMP 37; O2SAT 100
--- NOTE | 2024-05-28 16:55 | MHC.CM.ED ---
Addendum entered by Ana Mtz 05/28/24 16:58: Consult to wound care has been place. Original Note: [facility] has offered a bed under [facility] pending. Pt accepts offer. MDS completed by previous CM and faxed to [facility]. CM spoke with patient at length about the facility; given a print out about facility. Pt is anxious about a new place. Has some concerns about a bed sore on her buttocks. Concerns about treatment. Primary RN aware. Provider aware. Pt aware that she may either transfer to facility on Saturday or more that likely on Saturday, as CM is waiting for MH leveling. CM will follow for discharge planing.
[2024-05-28 19:26] VITALS: BP 109/50; PULSE 82; RESP 18; TEMP 37.4; O2SAT 98
[2024-05-28] MEDS: Tolterodine Tartrate LA 4 MG CAP.ER.24H PO (20:54)
[2024-05-28 20:59] VITALS: BP 109/50
[2024-05-28] MEDS: lisinopriL 40 MG TABLET PO (20:59)
--- NOTE | 2024-05-29 04:49 | PC.NURSE ---
Patient slept most of the night, voids to bedside commode, independent with transfers. Patient offers no compalins at this time, call ruiz in reach, plan of care ongoing.
[2024-05-29 06:00] VITALS: BP 116/60; PULSE 72; RESP 20; TEMP 37.2; O2SAT 100
[2024-05-29] MEDS: Omeprazole 40 MG CAPSULE.DR PO (06:04)
--- NOTE | 2024-05-29 07:49 | MHC.EDTECH ---
pt is a self and was given oral hygiene
[2024-05-29 08:36] VITALS: BP 121/62; PULSE 82; RESP 18; TEMP 37.4; O2SAT 100
[2024-05-29] MEDS: Acetaminophen 325 MG TABLET 975 MG PO ×2 (08:45→20:18)
[2024-05-29] MEDS: Gabapentin 100 MG CAPSULE PO ×3 (08:46→20:19)
[2024-05-29] MEDS: Cholecalciferol (Vitamin D3) 25 MCG TABLET PO (08:46)
[2024-05-29 08:47] VITALS: BP 121/62
[2024-05-29] MEDS: amLODIPine Besylate 5 MG TABLET PO (08:47)
--- NOTE | 2024-05-29 10:00 | MHC.EDTECH ---
pt was offered to wash up and stated she will be going to rehab and she will do it there told her if she changes her mind i can help
[2024-05-29] MEDS: Butalb/Acetamin/Caff 50/325/40 TABLET 1 TAB PO (10:09)
--- NOTE | 2024-05-29 10:36 | PC.NURSE ---
RN in Overflow. Called main ED and nursing specialty manufacturing supervisor for coverage to be able to go to main ED to pull these meds. Cannot be covered at this time
--- NOTE | 2024-05-29 10:47 | PC.NURSE ---
Awaiting medications per pharmacy. Pharmacy states that they are sending a tech. up with the missing medications.
[2024-05-29] MEDS: NaPROXEN 250 MG TABLET PO (11:04)
[2024-05-29] MEDS: Cyanocobalamin (Vitamin B-12) 1,000 MCG TABLET 1000 MCG PO (11:04)
[2024-05-29] MEDS: Cyclobenzaprine HCl 5 MG TABLET PO ×2 (11:04→20:19)
--- NOTE | 2024-05-29 13:45 | MHC.CM.ED ---
Patient remains in ER overflow. Will transfer to [facility] when [facility] leveling obtained from [facility]. Per Symone at [facility], they are waiting for the completed Level 1. Chayito at [facility] made aware. Continue to monitor for d/c needs.
[2024-05-29 14:00] VITALS: BP 97/55; PULSE 73; RESP 20; TEMP 37.1; O2SAT 100
[2024-05-29 17:28] VITALS: BP 106/50; PULSE 77; RESP 18; TEMP 37.4; O2SAT 100
[2024-05-29 19:26] VITALS: BP 126/83; PULSE 83; RESP 16; TEMP 36.8; O2SAT 94
[2024-05-29] MEDS: lisinopriL 40 MG TABLET PO (20:19)
[2024-05-29] MEDS: Tolterodine Tartrate LA 4 MG CAP.ER.24H PO (20:20)
[2024-05-30] MEDS: Omeprazole 40 MG CAPSULE.DR PO (03:28)
--- NOTE | 2024-05-30 03:29 | PC.NURSE ---
Pt requesting omeprazole early for her acid reflux. States I may need a tums too if this does not work .
[2024-05-30 06:07] VITALS: BP 103/45; PULSE 71; RESP 16; TEMP 36.9; O2SAT 98
[2024-05-30] MEDS: Gabapentin 100 MG CAPSULE PO ×2 (09:15→15:28)
[2024-05-30] MEDS: Acetaminophen 325 MG TABLET 975 MG PO (09:15)
[2024-05-30 09:17] VITALS: BP 121/65
[2024-05-30] MEDS: Cholecalciferol (Vitamin D3) 25 MCG TABLET PO (09:17)
[2024-05-30] MEDS: amLODIPine Besylate 5 MG TABLET PO (09:17)
[2024-05-30] MEDS: NaPROXEN 250 MG TABLET PO (09:18)
--- NOTE | 2024-05-30 09:23 | PC.NURSE ---
Pt alert and oriented, breathing even and unlabored. Pt reports headache, 08/06, reports she has had them daily in the morning since being here. Also reports lower back and leg pain 02/04. Ate breakfast independently with no issues. Took morning meds with no issues, requested Fioricet and Tums, provided alerted.
[2024-05-30] MEDS: Cyclobenzaprine HCl 5 MG TABLET PO (09:28)
[2024-05-30] MEDS: Cyanocobalamin (Vitamin B-12) 1,000 MCG TABLET 1000 MCG PO (09:28)
[2024-05-30] MEDS: Butalb/Acetamin/Caff 50/325/40 TABLET 1 TAB PO (09:43)
[2024-05-30 09:58] VITALS: BP 119/62; PULSE 80; RESP 14; O2SAT 99
--- NOTE | 2024-05-30 11:47 | PC.NURSE ---
Patient sitting up in bed eating lunch at this time, no s/s of distress noted, no complaints at this time.
[2024-05-30 14:00] VITALS: BP 110/61; PULSE 80; RESP 15; TEMP 36.9; O2SAT 96
--- NOTE | 2024-05-30 14:35 | MHC.CM.PN ---
Addendum entered by Dahlia Samuel 05/30/24 15:48: A call was received from [facility], [facility]. They are able to accept the patient today. Transportation is booked for 5pm pick. The med Nec has been given to the ER alumni secretary. The nurse Amie has been notified of the discharge today and the transport time. A call was received from the ED overflow Nurse Amie stated that the patient is concerned; because she thought that she was leaving on Saturday. She was concerned about receiving her Fioricet. The liason confirmed that the medication will be provided by the pharmacy. It was explained to the patient that [facility] is prepared to accept her today . [facility] was the barrier to discharge. The patient is not admitted. She was informed there is no appeal process if you are not admitted. T/W encouraged her to take the ambulance at 5pm to [facility]. Patient was told that we can not force her to take the BLS trip to [facility], she has rights. It is up to her. She was angry and stated that this press writer is rude and didnt need to be rude. T/w told the pt that those were the facts. There was no intention of rudeness at all. Patient stated that she will go to [facility]. The ER charge nurse Don was notified of the discharge and the patients comments. BLS scheduled for 5pm picker. Original Note: A message has been received from [facility] Sin[facility] late afternoon yesterday 05/29. The message was to Helen from [facility]. [facility] has received EC approval. Messages have been sent via [employer] as well as by Phone. A VM has been left for admissions dept. Unable to contact admission Liason S, 05/30/24.
[2024-05-30 16:42] VITALS: BP 110/61; PULSE 80; RESP 15; TEMP 36.9; O2SAT 96
--- NOTE | 2024-05-30 16:42 | PC.NURSE ---
Nurse to nurse given to [facility] with verbal understanding obtained.
== END 2024-05-30 16:48 | disposition skilled nursing facility (03) ==
PROVIDERS: Physician Assistant Medical; Registered Nurse Emergency; Emergency Provider Emergency Medicine; PCP Internal Medicine
DX: M54.41 Lumbago with sciatica, right side (principal); L89.313 Pressure ulcer of right buttock, stage 3; Z79.899 Other long term (current) drug therapy; Z11.52 Encounter for screening for COVID-19
CPT/HCPCS: 36415; 72131; 80053; 85025; 87635; 97162; 99285

== ENCOUNTER 2024-07-02 10:44 | Emergency (ER) | payer MEDICARE, SELFPAY ==
[2024-07-02] VITALS (8 sets, daily range): BP systolic 103–130; BP diastolic 55–72; PULSE 71–95; RESP 14–16; TEMP 36.6–37; O2SAT 98–100; BMI 22.8
--- NOTE | 2024-07-02 10:53 | ED.GENADULT ---
HPI - General Adult General Chief complaint: Back Pain/Injury Stated complaint: BACK PAIN,SWOLLEN FEET,RECENT REHAB D/C PER EMS Time Seen by Provider: 07/02/24 10:53 Source: patient and EMS Mode of arrival: EMS Limitations: no limitations History of Present Illness ED Provider: Philly Alicea PA-C HPI narrative: Patient is a 73 year old assigned female at with a history of chronic back pain presenting to the emergency department today with difficulty ambulating. Patient states that she has been in and out of short term rehab facilities for her low back and difficulty ambulating. Patient states that she does not feel like her back is improving and continues to have difficulty ambulating. Patient denies any dizziness, lightheadedness, abdominal pain, nausea, vomiting, fever, chills, blurry vision, double vision, loss of vision, chest pain, difficulty breathing, shortness of breath, night sweats, pain with urination, increased urinary frequency, increased urinary urgency, blood in her urine or stool, syncope or a near syncopal episode, recent trauma or falls, bowel incontinence, bladder incontinence, or any other complaints at this time. Relieving factors: none Exacerbating factors: none Associated symptoms: denies other symptoms Treatments prior to arrival: none Related Data Home Medications ?Medication ?Instructions ?Recorded ?Confirmed acetaminophen 500 mg tablet 1,000 mg PO BID 12/21/22 05/26/24 albuterol sulfate 90 mcg/actuation 2 puff inhalation Q6H PRN wheezing 12/21/22 05/26/24 aerosol inhaler amlodipine 5 mg tablet 1 tab PO DAILY 12/21/22 05/26/24 ogaguxcluh-wuofgiyajaabh-ksbkgzyr 1 tab PO BID PRN Migraine Headache 12/21/22 05/26/24 50 mg-325 mg-40 mg tablet lisinopril 40 mg tablet 1 tab PO DAILY@1900 12/21/22 05/26/24 omeprazole 40 mg capsule,delayed 1 cap PO DAILY@0630 12/21/22 05/26/24 release solifenacin 5 mg tablet 1 tab PO BEDTIME 12/21/22 05/26/24 cholecalciferol (vitamin D3) 25 25 mcg PO DAILY 12/12/23 05/26/24 mcg (1,000 unit) tablet cyanocobalamin (vitamin B-12) 1,000 mcg PO DAILY 12/12/23 05/26/24 1,000 mcg tablet gabapentin 100 mg capsule 100 mg PO TID 12/12/23 05/26/24 naproxen 375 mg tablet 375 mg PO BID 04/14/24 05/26/24 cyclobenzaprine 5 mg tablet 5 mg PO BID 05/26/24 05/26/24 calcium carbonate (Tums) 200 mg PO QID PRN Acid Reflux 05/29/24 05/29/24 Allergies Allergy/AdvReac Type Severity Reaction Status Date / Time Penicillins Allergy Hives Verified 07/02/24 10:53 Review of Systems Constitutional: Constitutional: Reports no additional constitutional complaints, Denies chills, Denies fever(s) and Denies night sweats Eyes: Eyes: Reports no additional eye complaints, Denies blurry vision, Denies change in vision, Denies diplopia, Denies eye discharge, Denies loss of vision and Denies eye pain ENT: Denies dizziness Cardiovascular: Cardiovascular: Reports no additional cardiovascular complaints, Denies chest pain, Denies lightheadedness, Denies Loss of Consciousness and Denies dyspnea Respiratory: Respiratory: Reports no additional respiratory complaints and Denies dyspnea Gastrointestinal: Gastrointestinal: Reports no additional gastrointestinal complaints, Denies abdominal pain, Denies melena, Denies hematochezia, Denies change in bowel habits and Denies change in stool character Genitourinary: Genitourinary: Denies hematuria, Denies urinary frequency, Denies dysuria, Denies urinary incontinence, Denies urinary hesitancy and Denies urinary urgency Musculoskeletal: Musculoskeletal: Reports no additional musculoskeletal complaints, Denies numbness and Denies tingling Comments: back pain Neurologic: Denies dizziness, Denies loss of vision, Denies numbness and Denies tingling Psychiatric: Psychiatric: Reports no additional psychiatric complaints Endocrine: Endocrine: Reports no additional endocrine complaints Hematologic/Lymphatic: Hematologic/Lymphatic: Reports no additional hematologic/lymphatic complaints Allergic/Immunologic: Allergic/Immunologic: Reports no additional allergic/immunologic complaints PMFSH Past Medical History Attestation statement: The following information was validated with the patient. Source: old records reviewed and nursing notes reviewed Social History Social History Alcohol intake: never Advance Directives: Yes Advance Directives on File: Yes Advance Directives Date on File: 12/22/22 Do you have a plan to hurt others: No Plan Physical Exam ED Vital Signs: Vital Signs - 24 hr 07/02/24 10:53 07/02/24 11:53 07/02/24 12:36 Temperature 98.6 F 98.2 F Pulse Rate 89 89 75 Respiratory Rate 16 16 Blood Pressure 124/71 124/71 121/62 Pulse Oximetry 98 98 99 Oxygen Delivery Method Room Air Room Air 07/02/24 14:00 Temperature 97.8 F Pulse Rate 92 Respiratory Rate 16 Blood Pressure 130/68 Pulse Oximetry 100 Oxygen Delivery Method Room Air BMI result Body Mass Index 22.8 Const General: cooperative, no acute distress, alert and awake Nutritional Appearance: well nourished Orientation/consciousness: patient oriented x3 Limitations: no limitations HENMT Head: Yes normal to inspection and Yes atraumatic Ears: hearing grossly normal bilaterally and external ears normal General nose exam: Normal external nose present, no nasal discharge noted and no epistaxis Face and sinus: Yes normal facial exam, No abrasion and No laceration Mouth: Normal oral and palatal mucosa present, no drooling and no muffled voice Eyes General: appearance normal, both eyes and all related structures Periorbital: periorbital findings normal Eyelids: Yes eyelids normal Conjunctivae: conjunctivae normal Pupils: Equal, round and reactive pupils present EOM: EOMs intact bilaterally Neck Neck: Yes normal visual inspection, Yes full ROM and Yes no lymphadenopathy Chest Chest palpation & inspection: normal inspection of the chest Resp Effort & Inspection: normal respiratory effort and able to speak in complete sentences GI Inspection: Yes normal to inspection Neuro General: patient oriented x3 and moves all extremities Cranial nerves: Yes Equal, round and reactive pupils present Cognition (Neuro): normal cognition Extrem General: Yes normal to inspection, Yes full ROM and Yes capillary refill normal Psych Appearance: grossly normal Mental Status: mental status grossly normal Affect: normal affect Attitude: cooperative Thought process: Normal thought process present Thought content: Normal thought content present Insight: Good insight present (Psych) Medical Decision Making Medical Decision Making MDM Narrative: Patient is a 73 year old assigned female at with a history of chronic low back pain presenting to the emergency department today with difficulty ambulating. Patient's physical exam was unremarkable. Patient's blood work was unremarkable. Patient's urine showed a possible UTI however, the patient's current clinical presentation is not consistent with this - will await culture to initiate treatment. I explained my physical exam findings as well as all test results to the patient. I answered all questions asked by the patient. Patient to be evaluated by physical therapy and case management for possible placement. Differential Diagnosis Differential Diagnoses: The differential diagnosis associated with the presentation includes Failure to thrive Difficulty ambulating Acute on chronic low back pain Admission/Observation Consideration of admission/observation: Escalation of care including admission/observation considered Patient would have been admitted to the hospital had her work up had any findings where hospital admission was appropriate and her clinical presentation warranted hospital admission. Lab Data [facility] Lab Attestation statement: I reviewed the patient's lab results. My interpretation of these results are in the [facility] Rationale portion of this note. 07/02/24 11:54 07/02/24 11:54 Labs: Lab Results 07/02/24 07/02/24 07/02/24 Range/Units 11:54 12:34 13:37 WBC 7.8 (4.8-10.8) X10*3/uL RBC 3.33 L (4.20-5.50) X10*6/uL Hgb 9.7 L (12.0-16.0) g/dl Hct 30.5 L (37.0-47.0) % MCV 91.6 (80.0-98.0) fL MCH 29.1 (27.0-33.0) pg MCHC 31.8 (31.0-35.0) g/dl RDW 14.6 (11.0-16.0) % Plt Count 220 D (160-400) X10*3/uL MPV 9.5 (9.4-12.3) fL Immature Gran % (Auto) 0.3 (0.0-0.4) % Neut % (Auto) 78.7 H (45-73) % Lymph % (Auto) 11.0 L (20-40) % Centre % (Auto) 4.5 (2-11) % Eos % (Auto) 4.9 H (0-4) % Baso % (Auto) 0.6 (0-2) % Lymph # (Auto) 0.9 L (1.2-4.9) X10*3/uL Centre # (Auto) 0.4 (0.1-1.2) X10*3/uL Eos # (Auto) 0.4 (0.0-0.4) X10*3/uL Baso # (Auto) 0.1 (0.0-0.2) X10*3/uL Abs Immat Gran (auto) 0.02 (0.00-0.03) X10*3/uL Absolute Neuts (auto) 6.1 (2.0-8.3) x10*3/uL Absolute Nucleated RBC 0.000 (0.0-0.012) X10*3/uL Nucleated RBC % (auto) 0.0 (0.0-0.2) /100WBC Sodium 143 (135-145) mmol/L Potassium 4.5 (3.3-5.1) mmol/L Chloride 111 H (96-108) mmol/L Carbon Dioxide 24 (22-29) mmol/L Anion Gap 13 (12-20) BUN 31 H (9-16) mg/dL Creatinine 1.08 (0.5-1.4) mg/dL Estim Creat Clear Calc 35.5 Estimated GFR 49 Random Glucose 104 (60-115) mg/dL Calcium 10.0 (8.4-10.2) mg/dL Total Bilirubin 0.2 (0.0-1.0) mg/dL AST 11 (5-31) U/L ALT 8 (0-31) U/L Alkaline Phosphatase 109 (39-117) U/L Total Protein 7.0 (6.5-8.0) g/dL Albumin 3.9 (3.5-5.0) g/dL Urine Color Yellow Urine Appearance Cloudy Urine pH 5.0 (5.0-9.0) Ur Specific [place] 1.025 (1.005-1.025) Urine Protein Negative (Neg-Trace) mg/dL Urine Glucose (UA) Negative (Negative) mg/dL Urine Ketones Negative (Negative) mg/dL Urine Blood Negative (Negative) Urine Nitrite Negative (Negative) Ur Leukocyte Esterase Small (1+) H (Negative) Urine RBC 0-2 (0-2) /HPF Urine WBC 6-10 H (0-5) /HPF Ur Squamous Epith Cells 11-20 (0-2) /HPF Urine Bacteria 3+ (None Seen) Hyaline Casts 3-5 (0-2) /LPF COVID-19 (FINA) Negative (Negative) COVID-19 Clin Com See Note Independent Historian Clinical information obtained from an independent historian. History obtained from or confirmed by: EMS (EMS provided additional history and confirmed the history provided by the patient.) Discharge Plan Discharge Clinical Impression: Acute on chronic back pain, Difficulty in walking Patient Disposition: Still a Patient Prescriptions: No Action amlodipine 5 mg tablet 1 tab PO DAILY omeprazole 40 mg capsule,delayed release(DR/EC) 1 cap PO DAILY@0630 ebzuwfhqkx-ejbwoanlglyxj-uwdj 50-325-40 mg tablet 1 tab PO BID PRN (Reason: Migraine Headache) albuterol sulfate 90 mcg/actuation HFA aerosol inhaler 2 puff inhalation Q6H PRN (Reason: wheezing) lisinopril 40 mg tablet 1 tab PO DAILY@1900 solifenacin 5 mg tablet 1 tab PO BEDTIME acetaminophen 500 mg Tablet 1,000 mg PO BID naproxen 375 mg tablet 375 mg PO BID cyanocobalamin (vitamin B-12) 1,000 mcg tablet 1,000 mcg PO DAILY gabapentin 100 mg capsule 100 mg PO TID cholecalciferol (vitamin D3) 25 mcg (1,000 unit) tablet 25 mcg PO DAILY cyclobenzaprine 5 mg tablet 5 mg PO BID calcium carbonate [Tums] 200 mg calcium (500 mg) Tablet,Chewable 200 mg PO QID PRN (Reason: Acid Reflux) Print Language: Togolese
[2024-07-02 11:59] LABS: MANUAL DIFF FLAG NO
[2024-07-02 12:01] LABS: Hematocrit 30.5 % (37.0-47.0); Hemoglobin 9.7 g/dl (12.0-16.0); Mean Corpuscular HGB Conc 31.8 g/dl (31.0-35.0); Mean Corpuscular Hemoglobin 29.1 pg (27.0-33.0); Mean Corpuscular Volume 91.6 fL (80.0-98.0); Platelet Count 220 X10*3/uL (160-400); Red Blood Count 3.33 X10*6/uL (4.20-5.50); Red Cell Distribution Width 14.6 % (11.0-16.0); White Blood Count 7.8 X10*3/uL (4.8-10.8)
[2024-07-02 12:02] LABS: Basophils Absolute Auto 0.1 X10*3/uL (0.0-0.2); Basophils Percent Auto 0.6 % (0-2); Eosinophils Absolute Auto 0.4 X10*3/uL (0.0-0.4); Eosinophils Percent Auto 4.9 % (0-4); Imm Gran Abs Auto 0.02 X10*3/uL (0.00-0.03); Imm Gran Pct Auto 0.3 % (0.0-0.4); Lymphocytes Absolute Auto 0.9 X10*3/uL (1.2-4.9); Mean Platelet Volume 9.5 fL (9.4-12.3); Monocytes Absolute Auto 0.4 X10*3/uL (0.1-1.2); Monocytes Percent Auto 4.5 % (2-11); Neutrophils Absolute Auto 6.1 x10*3/uL (2.0-8.3); Neutrophils Percent Auto 78.7 % (45-73)
[2024-07-02 12:15] LABS: Alanine Aminotransferase 8 U/L (0-31); Albumin Level 3.9 g/dL (3.5-5.0); Alkaline Phosphatase 109 U/L (39-117); Anion Gap 13 (12-20); Aspartate Amino Transferase 11 U/L (5-31); Bilirubin Total 0.2 mg/dL (0.0-1.0); Blood Urea Nitrogen 31 mg/dL (9-16); Carbon Dioxide 24 mmol/L (22-29); Chloride 111 mmol/L (96-108); Creatinine Clr Calc Pharmacy 35.5; Estimated Glomerular Filt Rate 49; Glucose Random 104 mg/dL (60-115); Potassium 4.5 mmol/L (3.3-5.1); Sodium 143 mmol/L (135-145)
[2024-07-02 12:58] LABS: COVID-19 Test Negative (Negative); IDNOW Serial# 08D9AD1C
--- NOTE | 2024-07-02 13:35 | MHC.CM.ED ---
Received notification from Kadie of [facility] that patient is returning to the ER and wants placment. Patient's [facility] is still pending. Received case management consult from Philly SMITH. Physical therapy eval completed. Short term rehab is recommended. Per physical therapy, SNF choices are 1)[facility] 2) [facility]. Referral made via [facility]. Neither are able to take [facility] pending patient's at this time. Referral broadcasted in [facility]port. Anticipate patient will be difficult to place d/t [facility] pending. Patient was at [facility] 05/30-06/22 and d/c'd home with Amcyn JENKINS. Patient is only active with physical therapy because she has refused assisted. Continue to monitor for d/c needs.
[2024-07-02 13:44] LABS: Appearance Urine Cloudy; Color Urine Yellow; Glucose Urine UA Negative (Negative); Leukocyte Esterase Urine Small (1+) (Negative); Nitrite Urine Negative (Negative); Specific Gravity - Urine 1.025 (1.005-1.025); UMIC TRIGGER UACC YES; Urine Blood Negative (Negative); Urine Ketones Negative (Negative); Urine Protein Negative (Neg-Trace)
[2024-07-02 13:46] LABS: Bacteria Urine 3+ (None Seen); RBC Urine 0-2 /HPF (0-2); UACC Culture Trigger YES
--- NOTE | 2024-07-02 19:00 | PC.NURSE ---
report received from Charissa Miguel RN, assume care of pt at this time
[2024-07-02] MEDS: Cyclobenzaprine HCl 5 MG TABLET PO (19:44)
[2024-07-02] MEDS: Gabapentin 100 MG CAPSULE PO (19:44)
[2024-07-02] MEDS: lisinopriL 40 MG TABLET PO (19:45)
[2024-07-02] MEDS: Acetaminophen 325 MG TABLET 975 MG PO (19:46)
[2024-07-02] MEDS: Tolterodine Tartrate LA 4 MG CAP.ER.24H PO (19:53)
[2024-07-02] MEDS: NaPROXEN 250 MG TABLET PO (20:23)
--- NOTE | 2024-07-02 20:28 | PC.NURSE ---
report given to Teri Guevara, in Overflow, pt is going to room 6
--- NOTE | 2024-07-02 21:16 | MHC.CM.ED ---
CM met with this patient. She is well known to ED CM. She is a kristy woman, who is anxious and has some OCD. Pt lives alone. Was recently at [facility] from 05/30-06/22 and was discharge home with Jayson. She did not feel she needed SN, but has had here PT referral. Pt feels she just got weaker at home. She has significant help from Kadie at [facility]. She has [place] [facility] for [employer] weekly and has cleaning services set up with [facility], which has not started yet. Pt also has a shower chair and a chair cushion. Kadie is working on getting her a power recliner chair. Pt does not want LTC at this time. Pt would be a good candidate for assisted living, however cost is a barrier. CM mentioned that some facilities do take MH and perhaps Kadie could assist her with that. Pt is very willing to go to rehab. Local referrals placed. [facility] if first choice and [facility] is second. [facility] may have a bed tomorrow. CM will follow for discharge planning.
--- NOTE | 2024-07-02 21:36 | PC.NURSE ---
pt to overflow at this time
[2024-07-03 04:00] VITALS: BP 134/65; PULSE 64; RESP 16; TEMP 36.8; O2SAT 98
--- NOTE | 2024-07-03 04:11 | PC.NURSE ---
Pt sleeping at the bedside. No apparent distress noted. Breaths are even, regular, and unlabored with equal chest rises. Monitoring is ongoing.
[2024-07-03] MEDS: Omeprazole 40 MG CAPSULE.DR PO (06:45)
[2024-07-03] MEDS: Cyanocobalamin (Vitamin B-12) 1,000 MCG TABLET 1000 MCG PO (09:34)
[2024-07-03] MEDS: Gabapentin 100 MG CAPSULE PO ×3 (09:34→19:20)
[2024-07-03] MEDS: Acetaminophen 325 MG TABLET 975 MG PO ×2 (09:34→19:20)
[2024-07-03] MEDS: Cholecalciferol (Vitamin D3) 25 MCG TABLET PO (09:34)
[2024-07-03 09:36] VITALS: BP 120/56
[2024-07-03] MEDS: amLODIPine Besylate 5 MG TABLET PO (09:36)
[2024-07-03] MEDS: Cyclobenzaprine HCl 5 MG TABLET PO ×2 (10:38→20:07)
--- NOTE | 2024-07-03 11:17 | MHC.CM.PN ---
PT AWAITING STR PLACEMENT [facility] ARE PREFERRED PER PT [facility] HAS DECLINED REFERRAL [facility] STILL REVIEWING, [facility]PD[facility]
[2024-07-03 12:10] VITALS: BP 135/58; PULSE 87; RESP 19; TEMP 37.2; O2SAT 100
[2024-07-03] MEDS: NaPROXEN 250 MG TABLET PO ×2 (12:50→20:09)
--- NOTE | 2024-07-03 13:41 | PC.NURSE ---
Report taken from Rosey ALMEIDA, assumed care of pt at 1100. Pt A&Ox3 skin pwd respirations even unlabored. VSS. 100% of lunch consumed. Medicated with scheduled meds per DEC. Ambulatory in room with walker to commode. Awaiting STR placement will continue to monitor.
[2024-07-03 16:00] VITALS: BP 107/54; PULSE 79; RESP 18; TEMP 36.6; O2SAT 99
--- NOTE | 2024-07-03 17:11 | PC.NURSE ---
Dinner tray provided, pt sitting up in bed consuming at this time. Offers no complaints, no change in physical assessment. STR bed search continues.
--- NOTE | 2024-07-03 19:03 | PC.NURSE ---
Report received from Krista ALMEIDA, assume care of pt at this time
[2024-07-03] MEDS: Calcium Carbonate 750 MG TAB.CHEW PO (19:20)
[2024-07-03 19:46] VITALS: BP 117/60; PULSE 79; RESP 18; TEMP 37.1; O2SAT 99
[2024-07-03] MEDS: Tolterodine Tartrate LA 4 MG CAP.ER.24H PO (20:08)
[2024-07-03] MEDS: lisinopriL 40 MG TABLET PO (20:09)
--- NOTE | 2024-07-03 21:50 | MHC.CM.ED ---
[facility] offered a bed. Patient has accepted. They are requesting MDS, less than 30 days on D/summary. MDS completed and faxed to [facility] ([phone]) and uploaded into [facility]. Pt is aware that [facility] is closed on the weekend and will re-open on Saturday. Expect Saturday discharge. Provider aware.
--- NOTE | 2024-07-03 22:18 | PC.NURSE ---
Pt requested another Tums for heartburn. Explained to pt, it was not available to be given at this time, it could only be given every 6 hours. Pt understood. Offered pt some milk to see if that would help. Pt accepted the milk
--- NOTE | 2024-07-03 23:22 | PC.NURSE ---
report given to Arline ALMEIDA
[2024-07-04] MEDS: Omeprazole 40 MG CAPSULE.DR PO (05:59)
[2024-07-04 06:00] VITALS: BP 110/55; PULSE 73; RESP 16; TEMP 37.1; O2SAT 98
[2024-07-04] MEDS: Acetaminophen 325 MG TABLET 975 MG PO ×2 (09:53→18:23)
[2024-07-04] MEDS: amLODIPine Besylate 5 MG TABLET PO (09:53)
[2024-07-04] MEDS: Cholecalciferol (Vitamin D3) 25 MCG TABLET PO (09:54)
[2024-07-04] MEDS: Cyanocobalamin (Vitamin B-12) 1,000 MCG TABLET 1000 MCG PO (09:54)
[2024-07-04] MEDS: Gabapentin 100 MG CAPSULE PO ×3 (10:02→18:24)
[2024-07-04] MEDS: Cyclobenzaprine HCl 5 MG TABLET PO ×2 (10:42→18:24)
[2024-07-04] MEDS: NaPROXEN 250 MG TABLET PO ×2 (10:43→18:24)
[2024-07-04] MEDS: Calcium Carbonate 750 MG TAB.CHEW PO ×2 (12:58→19:16)
[2024-07-04 14:00] VITALS: BP 120/58; PULSE 84; RESP 18; TEMP 36.5; O2SAT 98
--- NOTE | 2024-07-04 18:33 | PC.NURSE ---
called pharmacy for lisinopril and detrol
[2024-07-04] MEDS: Tolterodine Tartrate LA 4 MG CAP.ER.24H PO (18:44)
[2024-07-04 18:46] VITALS: BP 114/59
[2024-07-04] MEDS: lisinopriL 40 MG TABLET PO (18:46)
[2024-07-04 20:27] VITALS: BP 113/55; PULSE 78; RESP 16; TEMP 37.2; O2SAT 99
[2024-07-05] MEDS: Calcium Carbonate 750 MG TAB.CHEW PO ×3 (02:54→19:15)
--- NOTE | 2024-07-05 04:55 | PC.NURSE ---
Patient c/o heartburn, Tums administered as per DEC order with good effect. Patient resting comfortably .
[2024-07-05] MEDS: Omeprazole 40 MG CAPSULE.DR PO (06:19)
[2024-07-05 06:45] VITALS: BP 118/53; PULSE 62; RESP 16; TEMP 36.5; O2SAT 100
[2024-07-05] MEDS: Gabapentin 100 MG CAPSULE PO ×3 (08:20→19:16)
[2024-07-05] MEDS: Acetaminophen 325 MG TABLET 975 MG PO ×2 (08:20→19:16)
[2024-07-05] MEDS: Cholecalciferol (Vitamin D3) 25 MCG TABLET PO (08:21)
[2024-07-05] MEDS: Cyanocobalamin (Vitamin B-12) 1,000 MCG TABLET 1000 MCG PO (08:21)
[2024-07-05] MEDS: amLODIPine Besylate 5 MG TABLET PO (08:21)
[2024-07-05] MEDS: NaPROXEN 250 MG TABLET PO ×2 (08:21→19:15)
[2024-07-05] MEDS: Cyclobenzaprine HCl 5 MG TABLET PO ×2 (08:21→19:15)
[2024-07-05 13:09] VITALS: BP 132/67; PULSE 78; RESP 18; TEMP 37.1; O2SAT 99
--- NOTE | 2024-07-05 13:19 | PC.NURSE ---
pt reporting increased nausea post lunch, also endorsing chills and that she might have a fever. vss. provider notified.
[2024-07-05 14:18] VITALS: BP 123/62; PULSE 74; RESP 17; O2SAT 99
[2024-07-05] MEDS: Tolterodine Tartrate LA 4 MG CAP.ER.24H PO (19:33)
[2024-07-05] MEDS: lisinopriL 40 MG TABLET PO (19:33)
[2024-07-05 22:00] VITALS: BP 109/57; PULSE 77; RESP 14; TEMP 37.2; O2SAT 98
--- NOTE | 2024-07-05 22:23 | PC.NURSE ---
pt given some milk to see if that will help, with her heartburn,
[2024-07-06] MEDS: Calcium Carbonate 750 MG TAB.CHEW PO ×3 (01:13→22:14)
--- NOTE | 2024-07-06 01:16 | PC.NURSE ---
pt c/o of heartburn and rquests a tums, pt medicated as requested
--- NOTE | 2024-07-06 03:01 | PC.NURSE ---
resting quietly with eyes, resp with ease, no s/s of acute distress, will cont plan of care
[2024-07-06 06:00] VITALS: BP 104/59; PULSE 65; RESP 16; TEMP 36.5; O2SAT 99
[2024-07-06] MEDS: Omeprazole 40 MG CAPSULE.DR PO (06:23)
--- NOTE | 2024-07-06 06:27 | PC.NURSE ---
pt c/o of heartburn and requesting something stronger than Tums, maybe Maalox, will contact ED Provider
[2024-07-06] MEDS: Cyclobenzaprine HCl 5 MG TABLET PO ×2 (08:06→18:44)
[2024-07-06 08:07] VITALS: BP 104/59
[2024-07-06] MEDS: amLODIPine Besylate 5 MG TABLET PO (08:07)
[2024-07-06] MEDS: Cyanocobalamin (Vitamin B-12) 1,000 MCG TABLET 1000 MCG PO (08:08)
[2024-07-06] MEDS: Acetaminophen 325 MG TABLET 975 MG PO ×2 (08:08→18:44)
[2024-07-06] MEDS: NaPROXEN 250 MG TABLET PO ×2 (08:08→18:44)
[2024-07-06] MEDS: Cholecalciferol (Vitamin D3) 25 MCG TABLET PO (08:08)
[2024-07-06] MEDS: Gabapentin 100 MG CAPSULE PO ×3 (08:09→18:44)
--- NOTE | 2024-07-06 08:11 | PC.NURSE ---
axox3 in bed, eating full meal and holding off on maalox until after breakfast. c/o chronic pain in BLE but better when in bed. states she's capable of getting up to commode w/o assist but asked to ring. indepent to eat. no difficulty/incidents
[2024-07-06] MEDS: Magnesium Hydrox/Alum Hydrox 30 ML ORAL.SUSP 15 ML PO (09:10)
--- NOTE | 2024-07-06 13:27 | PC.NURSE ---
has been in room, uses commode independently. NAD. eating well. Awaits disposition.
[2024-07-06 14:00] VITALS: BP 104/52; PULSE 84; RESP 16; TEMP 37; O2SAT 97
--- NOTE | 2024-07-06 14:30 | MHC.CM.ED ---
Patient remains in ER overflow. [facility] leveling has been obtained by [facility]. Patient can leave for facility tomorrow 07/07 at 9am. Jason FELDER booked. [facility]. Patient, Jenn ALMEIDA and Corazon SMITH aware. Continue to monitor for d/c needs.
--- NOTE | 2024-07-06 14:56 | PHA.MEDREC ---
Addendum entered by Samuel Gee RPh 07/06/24 15:35: Med rec was reviewed by [facility]. Original Note: Pharmacy Consult ? Medication Reconciliation Pharmacy has reviewed the medication reconciliation done by nursing.
--- NOTE | 2024-07-06 15:46 | MHC.EDTECH ---
pink dressing was placed on bilateral butt cheeks d/t bed sores. pillow was also placed behind back and pt is laying right lateral, bedside table with pt belongings within reach, RN clementina newman
--- NOTE | 2024-07-06 16:18 | PC.NURSE ---
patient will hold maalox untill after supper. new dressings on buttocks applied by PCT
[2024-07-06] MEDS: Magnesium Hydrox/Alum Hydrox 30 ML ORAL.SUSP PO ×2 (17:17→20:28)
[2024-07-06 18:22] VITALS: BP 117/62; PULSE 87; RESP 14; TEMP 37.1; O2SAT 95
--- NOTE | 2024-07-06 19:14 | MHC.CM.ED ---
CM met with patient to discuss discharge plan. Pt will transport to [facility] tomorrow, 07/07 at 9am. Pt is pleased with discharge plan. C/C heartburn. Primary RN aware.
[2024-07-06 20:28] VITALS: BP 121/58
[2024-07-06] MEDS: Tolterodine Tartrate LA 4 MG CAP.ER.24H PO (20:28)
[2024-07-06] MEDS: lisinopriL 40 MG TABLET PO (20:28)
[2024-07-06 21:35] VITALS: BP 121/58; PULSE 76; RESP 16; TEMP 37.1; O2SAT 95
[2024-07-07] MEDS: Magnesium Hydrox/Alum Hydrox 30 ML ORAL.SUSP PO (01:11)
--- NOTE | 2024-07-07 01:43 | PC.NURSE ---
Patient c/o indigestion, Maalox dose given early per PA in ED. Patient resting comfortably , call ruiz within reach.
[2024-07-07] MEDS: Omeprazole 40 MG CAPSULE.DR PO (05:54)
[2024-07-07 05:57] VITALS: BP 111/56; PULSE 66; RESP 16; TEMP 36.5; O2SAT 97
[2024-07-07] MEDS: Gabapentin 100 MG CAPSULE PO (08:28)
[2024-07-07] MEDS: Cholecalciferol (Vitamin D3) 25 MCG TABLET PO (08:28)
[2024-07-07] MEDS: Cyanocobalamin (Vitamin B-12) 1,000 MCG TABLET 1000 MCG PO (08:29)
[2024-07-07] MEDS: Acetaminophen 325 MG TABLET 975 MG PO (08:29)
[2024-07-07] MEDS: amLODIPine Besylate 5 MG TABLET PO (08:29)
[2024-07-07] MEDS: Cyclobenzaprine HCl 5 MG TABLET PO (08:29)
[2024-07-07] MEDS: NaPROXEN 250 MG TABLET PO (08:29)
[2024-07-07 08:34] VITALS: BP 116/62; PULSE 86; RESP 16; O2SAT 100
[2024-07-07] MEDS: Calcium Carbonate 750 MG TAB.CHEW PO (09:56)
[2024-07-07 10:29] VITALS: BP 124/57; PULSE 85; RESP 18; TEMP 36.9; O2SAT 100
== END 2024-07-07 10:31 ==
PROVIDERS: Physician Assistant Medical; Emergency Provider Emergency Medicine; PCP Internal Medicine
DX: G89.29 Other chronic pain (principal); M54.50 Low back pain, unspecified; R26.2 Difficulty in walking, not elsewhere classified; Z11.52 Encounter for screening for COVID-19
CPT/HCPCS: 36415; 80053; 81001; 85025; 87086; 87635; 97161; 99285

== ENCOUNTER 2025-01-11 18:04 | Inpatient (IN) | payer MEDICARE, SELFPAY ==
--- NOTE | ~2025-01-11 | CT_ITS ---
CLINICAL HISTORY: pain CT abdomen and pelvis without contrast Comparison: None Findings: No consolidation at the lung bases. Cholelithiasis. No gallbladder wall thickening or pericholecystic fluid. Underdistended bladder. Wedge-shaped hyperattenuating lesion in the mid to lower pole the right kidney measuring 1.0 cm with associated calcification. There is some associated capsular retraction which may indicate scarring/chronic process. Punctate calcification in the upper pole of the right kidney and in the lower pole measuring 4 mm. There is also a punctate calcification in the upper pole of the left kidney. No hydronephrosis or nephrolithiasis. Hyperattenuating 5 mm lesion in the upper pole of the left kidney, indeterminate Status post hysterectomy. The other solid organs are unremarkable. Large hiatal hernia. No bowel dilation. A normal appendix is identified in the right upper quadrant. Colonic diverticulosis. An inflamed diverticula with focal pericolonic stranding is not identified. No fluid collection or free air. There is severe wall thickening of the distal colon. There is a region of underdistention versus focal luminal narrowing for a length of 2.5 cm (see coronal series 5 images 10 through 17). There is mesenteric edema associated with the thick-walled colon. No aneurysm. Mild calcified atherosclerotic disease. No lymphadenopathy. Small pelvic ascites. No acute osseous abnormality. Healing fracture of the left pubic symphysis. Question lucency/sclerosis in the sacral ala which may indicate insufficiency fractures. There is decreased bone mineralization. Grade 1 anterolisthesis of L4 on L5, degenerative. Impression: Wall thickening of the colon may indicate colitis. Follow up colonoscopy is recommended. Small ascites. Cholelithiasis without CT evidence of acute cholecystitis. Healing fracture of the left pubic symphysis. This document has been electronically signed by: Dionne Barrett MD on 01/11/2025 20:29:48
[2025-01-11 18:16] VITALS: BP 133/71; BP 140/82; PULSE 102; PULSE 98; RESP 18; TEMP 37; O2SAT 97; O2SAT 98; BMI 22.5
--- NOTE | 2025-01-11 18:32 | ED_ITS ---
HPI - Abdominal Pain General Chief Complaint: Abdominal Pain Stated Complaint: abd pain going on for weeks Time Seen by Provider: 01/11/25 18:21 Source: patient Limitations: no limitations History of Present Illness HPI narrative: This is a 74 years old the patient presented to the emergency department complaining of abdominal pain, she states she has been constipated she has been having irregular bowel movement. Denies any fever chills vomiting. MD elicited complaint: abdominal pain Pertinent past history: constipation Onset (ago): week(s) Pain Consistency: constant Location: none Severity: moderate Quality: cramping Radiation: none Migration to: no migration Exacerbating factors: nothing Relieving factors: nothing Related Data Home Medications ?Medication ?Instructions ?Recorded ?Confirmed acetaminophen 500 mg tablet 1,000 mg PO BID 12/21/22 07/02/24 albuterol sulfate 90 mcg/actuation 2 puff inhalation Q6H PRN wheezing 12/21/22 07/02/24 aerosol inhaler amlodipine 5 mg tablet 5 mg PO DAILY 12/21/22 07/02/24 snoswxpclb-koxviceluvslz-qgopijfd 1 tab PO BID PRN Migraine Headache 12/21/22 07/02/24 50 mg-325 mg-40 mg tablet lisinopril 40 mg tablet 40 mg PO DAILY@1900 12/21/22 07/02/24 omeprazole 40 mg capsule,delayed 40 mg PO DAILY@0630 12/21/22 07/02/24 release solifenacin 5 mg tablet 5 mg PO BEDTIME 12/21/22 07/02/24 cholecalciferol (vitamin D3) 25 25 mcg PO DAILY 12/12/23 07/02/24 mcg (1,000 unit) tablet cyanocobalamin (vitamin B-12) 1,000 mcg PO DAILY 12/12/23 07/02/24 1,000 mcg tablet gabapentin 100 mg capsule 100 mg PO TID 12/12/23 07/02/24 naproxen 375 mg tablet 375 mg PO BID 04/14/24 07/02/24 cyclobenzaprine 5 mg tablet 5 mg PO BID 05/26/24 07/02/24 calcium carbonate (Tums) 200 mg PO QID PRN Acid Reflux 05/29/24 07/02/24 Allergies Allergy/AdvReac Type Severity Reaction Status Date / Time Penicillins Allergy Hives Verified 01/11/25 18:20 Review of Systems Constitutional: Reports no additional constitutional complaints Cardiovascular: Denies chest pain and Denies dyspnea Respiratory: Denies dyspnea Gastrointestinal: Reports change in stool character, Denies nausea and Denies vomiting [facility] Past Medical History Attestation statement: The following information was validated with the patient. [facility] Narrative: Hypertension asthma, history of arthritis, history of anemia history of chronic kidney disease GERD t Social History Social History Alcohol intake: never Advance Directives: Yes Advance Directives on File: Yes Advance Directives Date on File: 12/22/22 Physical Exam ED Vital Signs: Vital Signs - 24 hr 01/11/25 18:16 01/11/25 20:46 Temperature 98.6 F 97.6 F Pulse Rate 98 75 Respiratory Rate 18 18 Blood Pressure 133/71 133/68 Pulse Oximetry 97 99 Oxygen Delivery Method Room Air Room Air BMI result Body Mass Index 22.5 No acute distress Const General: cooperative Nutritional Appearance: well nourished Orientation/consciousness: patient oriented x3 Limitations: no limitations HENMT Head: Yes normal to inspection Face and sinus: Yes normal facial exam Neck Neck: Yes normal visual inspection Chest Chest palpation & inspection: normal inspection of the chest Resp Effort & Inspection: normal respiratory effort Auscultation: clear to auscultation bilaterally Cardio Jugular venous distension: no JVD Rate: regular rate Rhythm: regular rhythm GI Other: Abdomen is soft nontender no guarding and no rebound Palpation (GI): Soft to palpation, not firm, nontender, no guarding and not rigid Auscultation: normal bowel sounds Rectal Exam - Female: normal sphincter tone and other (hard stool in the rectum) Skin General skin exam: no rashes or lesions noted Lesions: no lesions Rashes: no rashes Neuro General: patient oriented x3 Procedures Procedure Narrative Procedure Narrative: Disimpaction Manual Pt was placed in left lateral decubitus pt was disimpacted successfully Course Reevaluation(s) Reevaluation #1: CT showed colitis, potassium noted we will repeat a potassium, at this point we will admit the patient she does have a white count CT showed colitis. Time: 21:04 Medical Decision Making Medical Decision Making MDM Narrative: Patient presented to the emergency department complaining of abdominal pain and constipation we will obtain labs imaging Differential Diagnosis Differential Diagnoses: The differential diagnosis associated with the presentation includes Diverticulitis/colitis/bowel obstruction/constipation Admission/Observation Consideration of admission/observation: Escalation of care including admission/observation considered Consult Healthcare Provider Management of the patient was discussed with: Hospitalist Lab Data MDM Lab Attestation statement: I reviewed the patient's lab results. 01/11/25 18:42 01/11/25 20:42 Labs: Lab Results 01/11/25 01/11/25 Range/Units 18:42 20:42 WBC 14.5 H (4.8-10.8) X10*3/uL RBC 3.74 L (4.20-5.50) X10*6/uL Hgb 9.7 L (12.0-16.0) g/dl Hct 31.6 L (37.0-47.0) % MCV 84.5 (80.0-98.0) fL MCH 25.9 L (27.0-33.0) pg MCHC 30.7 L (31.0-35.0) g/dl RDW 16.8 H (11.0-16.0) % Plt Count 308 D (160-400) X10*3/uL MPV 10.3 (9.4-12.3) fL Immature Gran % (Auto) 0.5 H (0.0-0.4) % Neut % (Auto) 86.7 H (45-73) % Lymph % (Auto) 6.7 L (20-40) % [place] % (Auto) 4.2 (2-11) % Eos % (Auto) 1.6 (0-4) % Baso % (Auto) 0.3 (0-2) % Lymph # (Auto) 1.0 L (1.2-4.9) X10*3/uL [place] # (Auto) 0.6 (0.1-1.2) X10*3/uL Eos # (Auto) 0.2 (0.0-0.4) X10*3/uL Baso # (Auto) 0.1 (0.0-0.2) X10*3/uL Abs Immat Gran (auto) 0.07 H (0.00-0.03) X10*3/uL Absolute Neuts (auto) 12.6 H (2.0-8.3) x10*3/uL Absolute Nucleated RBC 0.000 (0.0-0.012) X10*3/uL Nucleated RBC % (auto) 0.0 (0.0-0.2) /100WBC Sodium 143 (135-145) mmol/L Potassium 5.5 H D 4.6 (3.3-5.1) mmol/L Chloride 111 H (96-108) mmol/L Carbon Dioxide 23 (22-29) mmol/L Anion Gap 15 (12-20) BUN 29 H (9-16) mg/dL Creatinine 1.07 (0.5-1.4) mg/dL Estim Creat Clear Calc 35.4 Estimated GFR 50 Random Glucose 92 (60-115) mg/dL Calcium 9.5 (8.4-10.2) mg/dL Total Bilirubin 0.1 (0.0-1.0) mg/dL AST 26 (5-31) U/L ALT 11 (0-31) U/L Alkaline Phosphatase 58 (39-117) U/L Total Protein 6.9 (6.5-8.0) g/dL Albumin 3.8 (3.5-5.0) g/dL Radiology Impression Discussion of test interpretation with radiology: I have reviewed the radiologist's reading. Medications Administered Discontinued Medications Generic Name Dose Route Start Last Admin Trade Name Freq PRN Reason Stop Dose Admin Sodium Biphosphate/Sodium Phosphate 133 ml 01/11/25 18:24 01/11/25 18:35 Sodium Phosphate,[place]-Dibasic 133 Ml Enema UT 01/11/25 18:25 133 ml ONCE ONE Administration Discharge Plan Discharge Clinical Impression: Colitis Patient Disposition: Admitted As Inpatient Print Language: Tamazight
[2025-01-11] MEDS: Sodium Phosphate,Mono-Dibasic 133 ML ENEMA PR (18:35)
[2025-01-11 18:50] LABS: Basophils Absolute Auto 0.1 X10*3/uL (0.0-0.2); Basophils Percent Auto 0.3 % (0-2); Eosinophils Absolute Auto 0.2 X10*3/uL (0.0-0.4); Eosinophils Percent Auto 1.6 % (0-4); Hematocrit 31.6 % (37.0-47.0); Hemoglobin 9.7 g/dl (12.0-16.0); Imm Gran Abs Auto 0.07 X10*3/uL (0.00-0.03); Imm Gran Pct Auto 0.5 % (0.0-0.4); Lymphocytes Percent Auto 6.7 % (20-40); MANUAL DIFF FLAG NO; Mean Corpuscular HGB Conc 30.7 g/dl (31.0-35.0); Mean Corpuscular Hemoglobin 25.9 pg (27.0-33.0); Mean Corpuscular Volume 84.5 fL (80.0-98.0); Mean Platelet Volume 10.3 fL (9.4-12.3); Monocytes Absolute Auto 0.6 X10*3/uL (0.1-1.2); Monocytes Percent Auto 4.2 % (2-11); Neutrophils Absolute Auto 12.6 x10*3/uL (2.0-8.3); Neutrophils Percent Auto 86.7 % (45-73); Platelet Count 308 X10*3/uL (160-400); Red Blood Count 3.74 X10*6/uL (4.20-5.50); Red Cell Distribution Width 16.8 % (11.0-16.0); White Blood Count 14.5 X10*3/uL (4.8-10.8)
[2025-01-11 19:04] LABS: Alanine Aminotransferase 11 U/L (0-31); Albumin Level 3.8 g/dL (3.5-5.0); Alkaline Phosphatase 58 U/L (39-117); Anion Gap 15 (12-20); Aspartate Amino Transferase 26 U/L (5-31); Bilirubin Total 0.1 mg/dL (0.0-1.0); Blood Urea Nitrogen 29 mg/dL (9-16); Calcium 9.5 mg/dL (8.4-10.2); Carbon Dioxide 23 mmol/L (22-29); Chloride 111 mmol/L (96-108); Creatinine Clr Calc Pharmacy 35.4; Estimated Glomerular Filt Rate 50; Glucose Random 92 mg/dL (60-115); Potassium 5.5 mmol/L (3.3-5.1); Sodium 143 mmol/L (135-145); Total Protein 6.9 g/dL (6.5-8.0)
--- NOTE | 2025-01-11 19:33 | PC.NURSE ---
Patient had very large bowel movement in commode. Dr. Harmon attempted manual disimpaction, then fleet enema was administered successfully. Patient reports small bautista-sized bowel movements several days apart. Prior to now, last BM was about 4 days ago. Patient reports feeling much better . Returned to bed with 1 assist. Commode and room clutter cleaned. Dr. Harmon notified. 20g IV access established to right forearm. Labs were drawn and sent for analysis. Plan for imaging to rule out bowel obstruction or other abnormalities. Care ongoing by this RN.
[2025-01-11 20:46] VITALS: BP 133/68; PULSE 75; RESP 18; TEMP 36.4; O2SAT 99
[2025-01-11 20:53] LABS: Potassium 4.6 mmol/L (3.3-5.1)
--- NOTE | 2025-01-11 21:22 | P.HPHOSP_ITS ---
History of Present Illness Date of Service: 01/11/25 Attending physician on admission: Zach Clark Chief Complaint: constipation, abd pain Pt is a 74 yo f with a pmhx significant for venous insufficiency, chronic back pain, GERD migraines, HTN, mild intermittent asthma iron-deficiency anemia and B12 deficiency, presented to the ED due to periumbilical abdominal pain the several weeks, worsening with associated constipation. When she called EMS she had 10/10 pain which she now reports his much better. She did receive an enema in the ED with some improvement. She denies any fever, chills, nausea or vomiting. She reports she has never had a colonoscopy before and has been reluctant although it was suggested by her PCP due to iron-deficiency anemia and B12 deficiency. She denies any upper respiratory symptoms or urinary symptoms including frequency, urgency, dysuria or hematuria. This difficult for her to tell if she has had any melena due to iron use. She denies any obvious rectal bleeding. Review of Systems 2 Constitutional: Constitutional: Denies chills, Reports fatigue, Denies fever(s) and Denies headache(s) Eyes: Eyes: Denies change in vision and Denies photophobia ENT: Denies headache(s), Denies nasal congestion, Denies nasal discharge and Denies sore throat Cardiovascular: Cardiovascular: Denies chest pain, Denies rapid heart rate, Denies leg edema and Denies dyspnea Respiratory: Respiratory: Denies chest congestion, Denies cough, Denies dyspnea and Denies wheezing Gastrointestinal: Gastrointestinal: Denies diarrhea, Denies nausea and Denies vomiting Genitourinary: Genitourinary: Denies hematuria, Denies dysuria and Denies urinary urgency Musculoskeletal: Musculoskeletal: Reports back pain (chronic) Integumentary/Breasts: Skin/Breast: Denies rash Neurologic: Denies confusion and Denies headache(s) Psychiatric: Psychiatric: Denies confusion Endocrine: Endocrine: Reports fatigue Hematologic/Lymphatic: Hematologic/Lymphatic: Denies easy bleeding and Denies easy bruising Allergic/Immunologic: Allergic/Immunologic: Denies wheezing [facility] Medical History (Updated 01/11/25 @ 21:34 by Alycia James PA-C) Iron deficiency anemia Mild intermittent asthma HTN (hypertension) Migraines GERD (gastroesophageal reflux disease) Venous insufficiency Chronic back pain Functional capacity: independent ambulation Social History Alcohol intake: never Advance Directives: Yes Advance Directives on File: Yes Advance Directives Date on File: 12/22/22 Narrative: hx smoking, no etoh or drug use Meds Allergies Allergy/AdvReac Type Severity Reaction Status Date / Time Penicillins Allergy Hives Verified 01/11/25 18:20 Active Medications: Current Medications Levofloxacin (Levaquin) 500 mg in 100 mls @ 100 mls/hr IV ONCE ONE Stop: 01/11/25 21:41 Home Medications ?Medication ?Instructions ?Recorded ?Confirmed ?Last Taken ?Type acetaminophen 500 mg tablet 1,000 mg PO BID 12/21/22 01/11/25 01/11/25 History amlodipine 5 mg tablet 5 mg PO DAILY 12/21/22 01/11/25 01/11/25 History rlipmgdywe-jiyxyqrodpciv-pojlaypj 1 tab PO BID PRN Migraine Headache 12/21/22 01/11/25 07/01/24 History 50 mg-325 mg-40 mg tablet lisinopril 40 mg tablet 40 mg PO DAILY@1900 12/21/22 01/11/25 01/10/25 History omeprazole 40 mg capsule,delayed 40 mg PO DAILY@0630 12/21/22 01/11/25 01/11/25 History release solifenacin 5 mg tablet 5 mg PO BEDTIME 12/21/22 01/11/25 01/10/25 History cholecalciferol (vitamin D3) 25 25 mcg PO DAILY 12/12/23 01/11/25 01/11/25 History mcg (1,000 unit) tablet cyanocobalamin (vitamin B-12) 1,000 mcg PO DAILY 12/12/23 01/11/25 01/11/25 History 1,000 mcg tablet gabapentin 100 mg capsule 100 mg PO TID 12/12/23 01/11/25 01/11/25 History naproxen 375 mg tablet 375 mg PO BID 04/14/24 01/11/25 01/11/25 History cyclobenzaprine 5 mg tablet 5 mg PO BEDTIME 05/26/24 01/11/25 01/11/25 History calcium carbonate (Tums) 200 mg PO QID PRN Acid Reflux 05/29/24 01/11/25 07/01/24 History ferrous sulfate 325 mg (65 mg 325 mg PO Q48H 01/11/25 01/11/25 01/11/25 History iron) tablet Physical Exam 2 Vital Signs and Narrative: Vital Signs: Last Vital Signs Temp 97.6 F 01/11/25 20:46 Pulse 75 01/11/25 20:46 Resp 18 01/11/25 20:46 BP 133/68 01/11/25 20:46 Pulse Ox 99 01/11/25 20:46 O2 Del Method Room Air 01/11/25 20:46 BMI result Body Mass Index 22.5 General: AOx3, no acute distress Resp: CTA bilaterally CVS: RRR, +murmur GI: hypoactive bowel sounds, NT, mild distention Skin: Warm, dry Neuro: Cranial nerves II-XII grossly intact bilaterally. Motor grossly intact bilaterally Extremities: No LE edema Psych: Appropriate affect Const: General: No confusion Orientation/consciousness: No confusion Eyes: Direct Ophthalmoscopy: No photophobia Neuro: General: No confusion Results Labs 01/11/25 18:42 01/11/25 20:42 Labs: Laboratory Results - last 24 hr 01/11/25 18:42 MCV 84.5 MCH 25.9 L MCHC 30.7 L RDW 16.8 H Plt Count 308 D MPV 10.3 Immature Gran % (Auto) 0.5 H Neut % (Auto) 86.7 H Lymph % (Auto) 6.7 L [place] % (Auto) 4.2 Eos % (Auto) 1.6 Baso % (Auto) 0.3 Lymph # (Auto) 1.0 L [place] # (Auto) 0.6 Eos # (Auto) 0.2 Baso # (Auto) 0.1 Abs Immat Gran (auto) 0.07 H Absolute Neuts (auto) 12.6 H Absolute Nucleated RBC 0.000 Nucleated RBC % (auto) 0.0 Anion Gap 15 Estim Creat Clear Calc 35.4 Estimated GFR 50 Random Glucose 92 Calcium 9.5 Total Bilirubin 0.1 AST 26 ALT 11 Alkaline Phosphatase 58 Total Protein 6.9 Albumin 3.8 Assessment and Plan (1) Sepsis: Status: Acute (2) Colitis: Status: Acute (3) Constipation: Status: Acute (4) Iron deficiency anemia: Status: Acute (5) Hyperkalemia: Status: Acute Plan Pt is a 74 yo f with a pmhx significant for venous insufficiency, chronic back pain, GERD, migraines, HTN, mild intermittent asthma, iron-deficiency anemia and B12 deficiency, presented to the ED due to periumbilical abdominal pain the several weeks, worsening with associated constipation. sepsis secondary to colitis - WBC 14.5, tachycardic, lactic acid and blood cultures x2 pending - A/P CT with distal colitis, small pelvic ascites and large hiatal hernia - given enema in ED with some relief - started on levaquin, continue and add flagyl - IVF deferred, pt able to tolerate PO and BP WNL - follow CBC and BMP iron def anemia - H+H stable, 9.7/31.6 - no need for blood transfusion - no obvious bleeding per pt - continue outpt management hyperkalemia - initial K 5.5, slight hemolysis, repeat 4.6 - monitor BMP chronic back pain - continue home meds GERD - continue home meds HTN - continue home meds mild intermittent asthma, no acute exacerbation - continue albuterol PRN B12 deficiency - continue B12 supplement DNR/DNI - discussed with pt VTE prophy: lovenox Pt with sepsis secondary to colitis, requiring admission for at least 2 midnights stay for IV abx. Quality Stroke Does the patient have a stroke diagnosis?: No VTE Prior VTE?: No VTE Risk Level:: Medical - moderate - high VTE Device Contraindication: Treatment Not Indicated VTE Drug Contraindication: N/A - Med Ordered
--- NOTE | 2025-01-11 21:32 | PHA.MEDREC ---
Addendum entered by Jai Tinoco [facility] 01/11/25 21:42: Reviewed by [facility] Addendum entered by Mary Kaur 01/11/25 21:40: Patient states she only takes Cyclobenzaprine 5 mg at bedtime NOT BID like prescribed. Original Note: Pharmacy Consult ? Medication Reconciliation Pharmacy has completed the medication reconciliation. Spoke to patient to confirm med list. Patient was able to name all her medications to me. Patient states she hasn't needed to use albutrol HFa inhaler in over a year. patient last took her medications today in the morning. Patient states she still needs her night time medications .
[2025-01-11 21:55] LABS: Lactic Acid 1.3 mmol/L (0.5-2.0)
[2025-01-11] MEDS: Cyclobenzaprine HCl 5 MG TABLET PO (22:25)
[2025-01-11] MEDS: metroNIDAZOLE/NS 500 MG/100 ML PIGGYBACK 100 MG IV (22:25)
[2025-01-11] MEDS: Gabapentin 100 MG CAPSULE PO (22:25)
--- NOTE | 2025-01-11 22:25 | PC.NURSE ---
Called pharmacy regarding Detrol. Unavailable in xis.
[2025-01-11] MEDS: 0.9 % Sodium Chloride Flush 3 ML SYRINGE IVFLUSH (22:26)
[2025-01-11 22:38] VITALS: BP 140/68
[2025-01-11] MEDS: lisinopriL 40 MG TABLET PO (22:38)
--- NOTE | 2025-01-11 22:38 | PC.NURSE ---
Patient refused Lovenox & Iron tablets. Patient states that she refused taking iron due to taking it yesterday. Normally takes iron Q48H, last dose 01/10/2025. Refused Lovenox stating that she doesn't want to take anything new and feels that she is moving around enough to justify not needing Lovenox. Reviewed teaching, but continued to refuse. Hospitalist (Jacob) aware of refusal. Patient is alert/oriented. 20g IV access to right forearm. IV antibiotics infusing as ordered. Jacob (hospitalist) requested that Levaquin 750mg be administered instead of 500mg dosage. Order discontinued. Flagyl 500mg infusing over 1 hour. Takes Tylenol 1000mg BID and Naproxen BID. Jacob agreed to order Tylenol, but not Naproxen due to CKD3. Timing of medications adjusted by provider per patient's medication history. Medication reconciliation was completed. Commode at bedside for PRN use. Used bathroom x2 this shift with 1 assist. Awaiting admission bed.
--- NOTE | 2025-01-12 00:03 | PC.NURSE ---
Levaquin 750mg to be infused after infusion of Flagyl 500mg is complete, per Jacob SMITH. Levaquin 500mg discontinued by provider. Confirmed via [employer].
--- NOTE | 2025-01-12 00:07 | PC.NURSE ---
Detrol was placed in Overflow ED pyxis. Another RN (Nohemi) obtaining medication on behalf of this RN & Maegan Lerma RN.
[2025-01-12] MEDS: Tolterodine Tartrate LA 4 MG CAP.ER.24H PO (00:15)
--- NOTE | 2025-01-12 00:19 | PC.NURSE ---
medication delay prior to shift, po medication given. bedside commode emptied, drink and sandwich provided.
[2025-01-12] MEDS: levoFLOXacin/D5W 750 MG/150 ML PIGGYBACK 100 MG IV (00:56)
[2025-01-12 01:09] VITALS: BP 118/59; PULSE 78; RESP 16; TEMP 36.6; O2SAT 98
--- NOTE | 2025-01-12 03:18 | PC.NURSE ---
please bed side commode, pt has several bowel movement, reposition for comfort, pt resting.
[2025-01-12 05:50] LABS: MANUAL DIFF FLAG NO
[2025-01-12 05:55] LABS: Basophils Percent Auto 0.5 % (0-2); Eosinophils Absolute Auto 0.3 X10*3/uL (0.0-0.4); Eosinophils Percent Auto 3.6 % (0-4); Hematocrit 27.2 % (37.0-47.0); Hemoglobin 8.3 g/dl (12.0-16.0); Imm Gran Abs Auto 0.03 X10*3/uL (0.00-0.03); Imm Gran Pct Auto 0.4 % (0.0-0.4); Lymphocytes Absolute Auto 1.1 X10*3/uL (1.2-4.9); Lymphocytes Percent Auto 14.9 % (20-40); Mean Corpuscular HGB Conc 30.5 g/dl (31.0-35.0); Mean Corpuscular Volume 85.3 fL (80.0-98.0); Mean Platelet Volume 10.7 fL (9.4-12.3); Monocytes Absolute Auto 0.4 X10*3/uL (0.1-1.2); Neutrophils Absolute Auto 5.5 x10*3/uL (2.0-8.3); Neutrophils Percent Auto 74.6 % (45-73); Platelet Count 218 X10*3/uL (160-400); Red Blood Count 3.19 X10*6/uL (4.20-5.50); Red Cell Distribution Width 16.3 % (11.0-16.0); White Blood Count 7.3 X10*3/uL (4.8-10.8)
[2025-01-12] MEDS: Omeprazole 40 MG CAPSULE.DR PO (06:00)
[2025-01-12 06:03] VITALS: BP 124/64; PULSE 87; RESP 16; TEMP 37; O2SAT 98
--- NOTE | 2025-01-12 06:04 | PC.NURSE ---
medicated per mar, change commode bag for patinet.
[2025-01-12 06:18] LABS: Anion Gap 11 (12-20); Blood Urea Nitrogen 28 mg/dL (9-16); Calcium 8.9 mg/dL (8.4-10.2); Carbon Dioxide 22 mmol/L (22-29); Chloride 110 mmol/L (96-108); Creatinine Clr Calc Pharmacy 47.3; Estimated Glomerular Filt Rate > 60; Glucose Random 77 mg/dL (60-115); Potassium 4.9 mmol/L (3.3-5.1); Sodium 138 mmol/L (135-145)
[2025-01-12] MEDS: Cyanocobalamin (Vitamin B-12) 1,000 MCG TABLET 1000 MCG PO (07:30)
[2025-01-12] MEDS: metroNIDAZOLE/NS 500 MG/100 ML PIGGYBACK 100 MG IV (07:30)
[2025-01-12] MEDS: Acetaminophen 325 MG TABLET 975 MG PO (07:31)
[2025-01-12] MEDS: Ferrous Sulfate 324 MG TABLET.DR PO (07:31)
[2025-01-12] MEDS: Cholecalciferol (Vitamin D3) 25 MCG TABLET PO (07:31)
[2025-01-12] MEDS: Gabapentin 100 MG CAPSULE PO (07:31)
[2025-01-12] MEDS: 0.9 % Sodium Chloride Flush 3 ML SYRINGE IVFLUSH (07:32)
[2025-01-12] MEDS: amLODIPine Besylate 5 MG TABLET PO (07:33)
--- NOTE | 2025-01-12 08:29 | PC.NURSE ---
Alert and oriented, ate well for breakfast, reports feeling better than when she arrived last night, medicated per dec. Seen by hospitalist, plan is to d/c from ed today
--- NOTE | 2025-01-12 09:53 | PM.DS ---
DS: Providers Provider Date of Service: 01/12/25 Date of admission: 01/11/25 21:28 Date of discharge: 01/12/25 Primary care physician: Unknown Physician Consults: 01/11/25 20:21 Consult to Case Management Stat Comment: DS: Diagnosis Discharge Diagnosis (1) Sepsis: Status: Acute (2) Colitis: Status: Acute (3) Constipation: Status: Acute (4) Iron deficiency anemia: Status: Acute (5) Hyperkalemia: Status: Acute DS: Summary Hospital Course Hospital Course: from initial hpi: 74 yo f with a pmhx significant for venous insufficiency, chronic back pain, GERD migraines, HTN, mild intermittent asthma iron-deficiency anemia and B12 deficiency, presented to the ED due to periumbilical abdominal pain the several weeks, worsening with associated constipation. When she called EMS she had 10/10 pain which she now reports his much better. She did receive an enema in the ED with some improvement. She denies any fever, chills, nausea or vomiting. She reports she has never had a colonoscopy before and has been reluctant although it was suggested by her PCP due to iron-deficiency anemia and B12 deficiency. She denies any upper respiratory symptoms or urinary symptoms including frequency, urgency, dysuria or hematuria. This difficult for her to tell if she has had any melena due to iron use. She denies any obvious rectal bleeding. hospital course: Patient was admitted for sepsis secondary to colitis. Was treated with Levaquin and Flagyl and symptoms significantly improved patient improved faster than expected and was tolerating solids next morning. Will be discharged home on 5 more days of Levaquin and Flagyl and should follow up with Gastroenterology for possible colonoscopy is recommended in CT abdomen report. For chronic iron deficiency anemia remained stable between 9 and 10. Patient is feeling better will be discharged home. Time Attestation Discharge Coordination Time (in mins): 34 Quality: Safe Use of Opioids Does Pt have an Active Cancer Diagnosis on the Problem List?: No Quality: Stroke Does the patient have a stroke diagnosis?: No Physical Exam Vital Signs: Vital Signs: Last Vital Signs Temp 98.6 F 01/12/25 06:03 Pulse 87 01/12/25 06:03 Resp 16 01/12/25 06:03 BP 124/64 01/12/25 06:03 Pulse Ox 98 01/12/25 06:03 O2 Del Method Room Air 01/12/25 06:03 BMI result Body Mass Index 22.5 Const: Other: Alert, well in appearance, cachectic Orientation/consciousness: patient oriented x3 Resp: Other: Nonlabored respiration Cardio: Other: Normal peripheral perfusion, radial pulses +2 Skin: Other: Warm dry no rash Neuro: General: patient oriented x3, moves all extremities, no focal motor deficits and CN's II-XI intact bilaterally Extrem: Other: Strength 5/5 bilateral lower extremities, minimal straight leg raise bilaterally, left greater than right, secondary to pain Psych: Other: Anxious DS: Data Data Completed and Pending Labs on day of discharge: Laboratory Results - last 24 hr 01/11/25 01/11/25 01/11/25 18:42 20:42 21:35 WBC 14.5 H RBC 3.74 L Hgb 9.7 L Hct 31.6 L MCV 84.5 MCH 25.9 L MCHC 30.7 L RDW 16.8 H Plt Count 308 D MPV 10.3 Immature Gran % (Auto) 0.5 H Neut % (Auto) 86.7 H Lymph % (Auto) 6.7 L [place] % (Auto) 4.2 Eos % (Auto) 1.6 Baso % (Auto) 0.3 Lymph # (Auto) 1.0 L [place] # (Auto) 0.6 Eos # (Auto) 0.2 Baso # (Auto) 0.1 Abs Immat Gran (auto) 0.07 H Absolute Neuts (auto) 12.6 H Absolute Nucleated RBC 0.000 Nucleated RBC % (auto) 0.0 Sodium 143 Potassium 5.5 H D 4.6 Chloride 111 H Carbon Dioxide 23 Anion Gap 15 BUN 29 H Creatinine 1.07 Estim Creat Clear Calc 35.4 Estimated GFR 50 Random Glucose 92 Lactic Acid 1.3 Calcium 9.5 Total Bilirubin 0.1 AST 26 ALT 11 Alkaline Phosphatase 58 Total Protein 6.9 Albumin 3.8 01/12/25 04:40 WBC 7.3 RBC 3.19 L Hgb 8.3 L Hct 27.2 L MCV 85.3 MCH 26.0 L MCHC 30.5 L RDW 16.3 H Plt Count 218 D MPV 10.7 Immature Gran % (Auto) 0.4 Neut % (Auto) 74.6 H Lymph % (Auto) 14.9 L [place] % (Auto) 6.0 Eos % (Auto) 3.6 Baso % (Auto) 0.5 Lymph # (Auto) 1.1 L [place] # (Auto) 0.4 Eos # (Auto) 0.3 Baso # (Auto) 0.0 Abs Immat Gran (auto) 0.03 Absolute Neuts (auto) 5.5 Absolute Nucleated RBC 0.000 Nucleated RBC % (auto) 0.0 Sodium 138 Potassium 4.9 Chloride 110 H Carbon Dioxide 22 Anion Gap 11 L BUN 28 H Creatinine 0.80 Estim Creat Clear Calc 47.3 Estimated GFR > 60 Random Glucose 77 Lactic Acid Calcium 8.9 D Total Bilirubin AST ALT Alkaline Phosphatase Total Protein Albumin Discharge Plan Discharge Anticipated Discharge Date/Time: 01/12/25 09:44 Patient Disposition: Home, Self-Care Discharge Diagnosis: colitis Referrals: Bhavana Cruz MD [Physician] - 1 Week (colitis) Physician,Unknown J [Primary Care Provider] - 1 Week Discharge Medications: New levofloxacin 500 mg tablet 500 mg PO DAILY Qty: 5 0RF metronidazole 500 mg tablet 500 mg PO BID Qty: 10 0RF Continued amlodipine 5 mg tablet 5 mg PO DAILY omeprazole 40 mg capsule,delayed release(DR/EC) 40 mg PO DAILY@0630 [id number]-[id number] 50-325-40 mg tablet 1 tab PO BID PRN (Reason: Migraine Headache) lisinopril 40 mg tablet 40 mg PO DAILY@1900 solifenacin 5 mg tablet 5 mg PO BEDTIME acetaminophen 500 mg Tablet 1,000 mg PO BID naproxen 375 mg tablet 375 mg PO BID cyanocobalamin (vitamin B-12) 1,000 mcg tablet 1,000 mcg PO DAILY gabapentin 100 mg capsule 100 mg PO TID cholecalciferol (vitamin D3) 25 mcg (1,000 unit) tablet 25 mcg PO DAILY cyclobenzaprine 5 mg tablet 5 mg PO BEDTIME calcium carbonate [Tums] 200 mg calcium (500 mg) Tablet,Chewable 200 mg PO QID PRN (Reason: Acid Reflux) ferrous sulfate 325 mg (65 mg iron) Tablet 325 mg PO Q48H Discharge Orders: Discharge Order (Routine); Ordered 01/12/25 Ordered By: Natanael Hadley Diet: Advance to usual diet Activity on Discharge: As tolerated Stand Alone Forms: Patient Portal Discharge page Print Language: Spanish Care Plan Goals: recovery Health Concerns: colitis Plan of Treatment: 5 more days levaquin and flagyl, follow up GI for possible colonscopy as recommended by cT abd Assessment: see above
--- NOTE | 2025-01-12 12:40 | MHC.CM.PN ---
PT DC HOME SELF CARE
--- NOTE | 2025-01-12 12:41 | MHC.CM.PN ---
AMB BOOKED BY ER STAFF
[2025-01-12 12:51] VITALS: BP 124/66; PULSE 77; RESP 18; TEMP 37; O2SAT 98
== END 2025-01-12 12:48 | disposition home or self-care (01) | DRG 872 ==
LOC: HO.ED 20:44 → HO.EDOVER 21:56
PROVIDERS: Physician Assistant; Admitting Provider Student in an Organized Health Care Education/Training Program; Emergency Provider Emergency Medicine; Visit Provider Internal Medicine
DX: A41.9 Sepsis, unspecified organism (principal); K56.41 Fecal impaction; D50.9 Iron deficiency anemia, unspecified; J45.20 Mild intermittent asthma, uncomplicated; K52.9 Noninfective gastroenteritis and colitis, unspecified; Z66 Do not resuscitate; E87.5 Hyperkalemia; M54.9 Dorsalgia, unspecified; G89.29 Other chronic pain; K21.9 Gastro-esophageal reflux disease without esophagitis; I12.9 Hypertensive chronic kidney disease with stage 1 through stage 4 chronic kidney disease, or unspecified chronic kidney disease; E53.8 Deficiency of other specified B group vitamins; Z79.899 Other long term (current) drug therapy
CPT/HCPCS: 36415; 74176; 80048; 80053; 83605; 84132; 85025; 87040; 97161; 99285; J1650; J1836; J1956

== ENCOUNTER → 2025-01-11 18:39 | Outpatient (BNV) | payer MEDICARE, SELFPAY | PROVIDERS: Emergency Provider Emergency Medicine; Visit Provider Radiology Diagnostic Radiology | DX: K52.9 Noninfective gastroenteritis and colitis, unspecified (principal) | CPT/HCPCS: 74176 ==

== ENCOUNTER → 2025-01-11 19:22 | Outpatient (BNV) | payer MEDICARE, SELFPAY | PROVIDERS: Emergency Provider Emergency Medicine; Visit Provider Physician Assistant | DX: A41.9 Sepsis, unspecified organism (principal); K52.9 Noninfective gastroenteritis and colitis, unspecified; K59.00 Constipation, unspecified; D50.9 Iron deficiency anemia, unspecified; E87.5 Hyperkalemia | CPT/HCPCS: 99222; 99239 ==

== ENCOUNTER 2025-08-12 11:16 | Emergency (ER) | payer MEDICARE, MEDICAID, SELFPAY ==
--- OUTSIDE RECORDS SUMMARY | 2024-02-17 09:30 | XMS_ITS ---
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 Name Role Phone Miguel Reese MD Primary Care Provider Vandana Arevalo Unavailable [phone] Encounters Encounter Location Date Provider Diagnosis [address] [address] 02/17/2024 Vandana Jose Plan Of Treatment Next Appt Details Provider Name:Vandana Jose , 11/29/2025 01:30:00 PM, [address] [place] [address], [id number], Progress Notes * Hayden CHEOB:1950 (74 yo F)Acc No.[id number]:02/17/2024 Progress Note Patient: Mera LOCKE Provider: Jes Jose DPM :1950 A ge:73 Y S ex:Female Date:02/17/2024 Address:[address] [place], [place] [id number] Pcp:Miguel Reese MD Subjective: * Chief Complaints: * * Medical History: Objective: * Vitals: Assessment: Plan: * Treatment: * Images: * The named appointment provid er may or may not be the originator of this progress note, and it is not deemed complete until electronically signed by the appointment provider. Sign off status: Pending * Provider: Jes Jose DPM Date: 0 02/17/2024 Generated for Marsha reyes/Carson/Orianasmitting on: 1 03:15 PM EDT
--- OUTSIDE RECORDS SUMMARY | 2024-06-01 09:30 | XMS_ITS ---
Author Organization [facility] Address [address] [place] [address] Care Team Providers Care Wood Grainer Name Role Phone Miguel Reese MD Primary Care Provider Vandana Arevalo Unavailable [phone] Encounters Encounter Location Date Provider Diagnosis [address] [address] 06/01/2024 Vandana Jose Plan Of Treatment Next Appt Details Provider Name:Vandana Jose , 11/29/2025 01:30:00 PM, [address] [place] [address], [id number], Progress Notes * Hayden CHEOB:1950 (74 yo F)Acc No.[id number]:06/01/2024 Progress Note Patient: Mera LOCKE Provider: Jes Jose DPM :1950 A ge:73 Y S ex:Female Date:06/01/2024 Address:[address] [place], [place] [id number] Pcp:Miguel Reese MD Subjective: * Chief Complaints: * * Medical History: Objective: * Vitals: Assessment: Plan: * Treatment: * Images: * The named appointment provid er may or may not be the originator of this progress note, and it is not deemed complete until electronically signed by the appointment provider. Sign off status: Pending * Provider: Jes Jose DPM Date: 0 06/01/2024 Generated for Marsha reyes/Carson/Orianasmitting on: 1 03:16 PM EDT
--- OUTSIDE RECORDS SUMMARY | 2024-08-31 09:30 | XMS_ITS ---
Author Organization [facility] Address [address] [place] [address] Care Team Providers Care Process Engineering Technician Name Role Phone Miguel Reese MD Primary Care Provider Vandana Arevalo Unavailable [phone] Encounters Encounter Location Date Provider Diagnosis [address] [address] 08/31/2024 Vandana Jose Plan Of Treatment Next Appt Details Provider Name:Vandana Jose , 11/29/2025 01:30:00 PM, [address] [place] [address], [id number], Progress Notes * Hayden CHEOB:1950 (74 yo F)Acc No.[id number]:08/31/2024 Progress Note Patient: Mera LOCKE Provider: Jes Jose DPM :1950 A ge:73 Y S ex:Female Date:08/31/2024 Address:[address] [place], [place] [id number] Pcp:Miguel Reese MD Subjective: * Chief Complaints: * * Medical History: Objective: * Vitals: Assessment: Plan: * Treatment: * Images: * The named appointment provid er may or may not be the originator of this progress note, and it is not deemed complete until electronically signed by the appointment provider. Sign off status: Pending * Provider: Jes Jose DPM Date: 10/31/2023 Generated for Marsha reyes/Carson/Orianasmitting on: 1 03:15 PM EDT
[2025-08-12] VITALS (13 sets, daily range): BP systolic 65–150; BP diastolic 45–92; PULSE 53–86; RESP 12–23; TEMP 36.2–36.9; O2SAT 95–99; BMI 20.8
--- NOTE | 2025-08-12 | ECG_ITS ---
Test Reason : WEAKNESS Blood Pressure : */* mmHG Vent. Rate : 68 BPM Atrial Rate : 68 BPM P-R Int : 144 ms QRS Dur : 124 ms QT Int : 424 ms P-R-T Axes : 54 12 53 degrees QTcB Int : 450 ms Normal sinus rhythm Left bundle branch block Abnormal ECG No previous ECGs available Referred By: Generic ED Physician Electronically Signed By: Raji Fu
--- NOTE | ~2025-08-12 | XR_ITS ---
CLINICAL HISTORY: chest pain 1 view chest x-ray Comparison: None provided Findings: No consolidation or effusion. Normal size heart. Retrocardiac air-fluid level; moderate paraesophageal hernia. Mild osteopenia. Multiple pulmonary granulomas. IMPRESSION: 1. Moderate paraesophageal hernia with retrocardiac air-fluid level. 2. Mild osteopenia. 3. No acute cardiopulmonary findings. This document has been electronically signed by: Valentin Ocampo MD on 08/12/2025 18:57:26
--- NOTE | ~2025-08-12 | XR_ITS ---
EXAMINATION: XR PELVIS CLINICAL INFORMATION: fell one month ago, pain PSIS right side COMPARISON: None available. TECHNIQUE: AP view of the pelvis. FINDINGS: Prominent bowel gas and stool projected over the pelvis, limiting evaluation. In particular, the sacrum and coccyx are obscured. Hip joint spaces are maintained without evidence of acute fracture or dislocation. Symphysis pubis intact. No diastasis of the SI joints. No acute displaced fracture is identified. No suspicious bony lesions.. XR/XR pelvis 1-2V IMPRESSION: No radiographic evidence of acute displaced fracture or dislocation. Prominent bowel gas and stool limiting evaluation. Further evaluation as clinically indicated. Electronically signed by: Kanu Bolaños MD 08/12/2025 01:19 PM EDT
--- NOTE | ~2025-08-12 | XR_ITS ---
EXAMINATION: XR LUMBOSACRAL SPINE CLINICAL INFORMATION: fell one month ago, pain right side COMPARISON: 12/12/2023. TECHNIQUE: Three views of the lumbosacral spine. FINDINGS: There is no scoliosis. There is a normal lordosis. There is a 3 mm degenerative appearing anterolisthesis of L4 upon L5. Alignment is otherwise anatomic. There is no fracture, compression deformity, or suspicious bone lesion. Mild diffuse disc degeneration is evident, most significant at L5-S1. There is normal facet alignment. There are mild hypertrophic degenerative facet changes most notable spanning L4-S1. There is abundant stool noted within the colon. Soft tissues appear normal. XR/XR lumbar spine 2-3V IMPRESSION: 1. No acute soft tissue or bony abnormality of the lumbar spine. 2. Mild to moderate degenerative lumbar spondylosis. Electronically signed by: Mario Elias MD 08/12/2025 01:19 PM EDT
[2025-08-12 12:12] LABS: MANUAL DIFF FLAG NO
[2025-08-12 12:17] LABS: Hematocrit 34.2 % (37.0-47.0); Hemoglobin 10.7 g/dl (12.0-16.0); Imm Gran Abs Auto 0.03 X10*3/uL (0.00-0.03); Imm Gran Pct Auto 0.6 % (0.0-0.4); Lymphocytes Absolute Auto 1.0 X10*3/uL (1.2-4.9); Mean Corpuscular HGB Conc 31.3 g/dl (31.0-35.0); Mean Corpuscular Hemoglobin 28.8 pg (27.0-33.0); Mean Corpuscular Volume 91.9 fL (80.0-98.0); NRBC Abs Auto 0.000 X10*3/uL (0.0-0.012); NRBC Pct Auto 0.0 /100WBC (0.0-0.2); Platelet Count 226 X10*3/uL (160-400); Red Blood Count 3.72 X10*6/uL (4.20-5.50); White Blood Count 5.4 X10*3/uL (4.8-10.8)
--- NOTE | 2025-08-12 12:21 | ED.BACK ---
HPI - Back Pain/Injury General Chief Complaint: Weakness Stated Complaint: BACK AND R LEG/FOOT PAIN PER EMS Time Seen by Provider: 08/12/25 11:36 Source: patient Mode of arrival: EMS Limitations: physical limitation History of Present Illness ED Provider: Meliza Moore PA-C HPI Narrative: 74-year-old female with past medical history significant for hypertension, migraines, venous insufficiency and chronic low back pain presenting to emergency department today for increasing weakness in her lower extremities that has been occurring over the past several weeks. Patient reports that she had a mechanical fall from tripping 1 month ago and did not seek any medical attention for it she landed on her right hip. She states that she did originally crawl to get back to her chair but as she only had generalized soreness and could still get up and use her walker, she did not seek medical attention for it. Since that time she reports feeling like her legs are on the weaker side. She reports that due to her venous insufficiency is why they feel weak. She has a hard time clearing her feet from the ground and feels like she is not strong enough to do so to continue to do her ADLs. She has [facility] services that visit her once a week and help her bathe they have noticed a steady decline and also recommended that she seek medical attention. She is denying any chest pain or shortness of breath. No fevers and no chills no abdominal discomfort no change or loss in her bladder or bowel function. She does have slight incontinence at baseline and wears a depends but does not accidentally urinate herself. No saddle anesthesia no history of IV drug use or cancer. She is denying any symptoms. She uses a walker at baseline to ambulate at home. Last time she needed to go to a short-term rehab for her low back was 1 year ago. She feels that she is needing that again. After she was seen he has did the short term we have she reports getting some home physical therapy but after a while it was discontinued. Patient is established with the wind turbine service technician for callus on her right foot she last saw them 1 week ago she uses Band-Aids to protect the skin she does not report any increase in discharge or redness of the area but does report that does hurt to bear weight on her right foot at baseline because of this. The patient lives alone. MD elicited complaint: back pain and fall Pertinent past history: prior back pain Related Data Home Medications ?Medication ?Instructions ?Recorded ?Confirmed acetaminophen 500 mg tablet 1,000 mg PO BID 12/21/22 08/12/25 amlodipine 5 mg tablet 5 mg PO DAILY 12/21/22 08/12/25 [id number]-tefyyrkjzvfss-dtzdnrvo 1 tab PO BID PRN Migraine Headache 12/21/22 08/12/25 50 mg-325 mg-40 mg tablet lisinopril 40 mg tablet 40 mg PO DAILY@1900 12/21/22 08/12/25 omeprazole 40 mg capsule,delayed 40 mg PO DAILY@0630 12/21/22 08/12/25 release solifenacin 5 mg tablet 5 mg PO BEDTIME 12/21/22 08/12/25 cholecalciferol (vitamin D3) 25 25 mcg PO DAILY 12/12/23 08/12/25 mcg (1,000 unit) tablet cyanocobalamin (vitamin B-12) 1,000 mcg PO DAILY 12/12/23 08/12/25 1,000 mcg tablet gabapentin 100 mg capsule 100 mg PO TID 12/12/23 08/12/25 naproxen 375 mg tablet 375 mg PO BID 04/14/24 08/12/25 cyclobenzaprine 5 mg tablet 5 mg PO BEDTIME 05/26/24 08/12/25 calcium carbonate (Tums) 200 mg PO QID PRN Acid Reflux 05/29/24 08/12/25 ferrous sulfate 325 mg (65 mg 325 mg PO Q48H 01/11/25 08/12/25 iron) tablet Allergies Allergy/AdvReac Type Severity Reaction Status Date / Time Penicillins Allergy Hives Verified 08/12/25 11:36 Review of Systems Review of Systems: Yes all other systems are reviewed and are negative [facility] Past Medical History Attestation statement: The following information was validated with the patient. Source: old records reviewed and nursing notes reviewed Medical History Iron deficiency anemia Mild intermittent asthma HTN (hypertension) Migraines GERD (gastroesophageal reflux disease) Venous insufficiency Chronic back pain Social History Social History Alcohol intake: never Smoked in Last 30 Days: No Use of substances other than those prescribed or required for medical reasons: No Advance Directives: Yes Advance Directives on File: Yes Advance Directives Date on File: 12/22/22 Do you have a plan to hurt others: No Plan service: No Physical Exam Exam: Exam: General: Appears in no acute distress, appears well nourished body habitus is overweight, appears stated age. No septic or ill-appearing. Vitals reviewed normal, PMH/Social and Surgical hx reviewed including allergies and current medications. - reviewed for prior visits here and reviewed as it pertains to similar chief complaint. Head: Normocephalic, no obvious trauma or skin lesions noted. Eyes: EOMI ENMT: moist oral mucosa Neck: trachea midline Cardiovascular: peripheral perfusion normal, Regular heart rate regular rhythm Respiratory: no respiratory distress lungs clear Abdomen: nondistended nontender Extremities: warm and moving, decreased strength 3+/5with resisting of bilateral hip flexion, no bony tenderness of bilateral lower extremities venous insufficiency noted of bilateral lower extremities nonpitting edema to be noted to be approximately 2+ sparing feet, no erythema no obvious varicose veins, no pain with pelvic rocking but she does have pain over the right PSIS as well as the right transverse spinous process of L4 and L5, no midline tenderness no step-offs no deformities no rashes, superficial freshly shaven calluses on medial arch, no erythematous or hard Neuro: Alert and oriented. Vital Signs: Vital Signs: Last Vital Signs Temp 98.6 F 08/13/25 13:29 Pulse 92 08/13/25 13:29 Resp 18 08/13/25 13:29 BP 114/56 L 08/13/25 13:29 Pulse Ox 100 08/13/25 13:29 O2 Del Method Room Air 08/13/25 13:29 BMI result Body Mass Index 20.8 Const: General: cooperative, comfortable, no acute distress and well developed Course Reevaluation(s) Reevaluation #1: SARAH Schmid 08/13- . Uneventful night. Vital signs stable. No complaints from nursing overnight. Med reconciliation reviewed and done. Pending disposition. Will continue to monitor. Observation continued Time: 08:21 Reevaluation #2: Patient will be going to [facility]. Patient agreeable with this plan. Physician observation ended Time: 14:06 Medications Administered Generic Name Dose Route Start Last Admin Trade Name Freq PRN Reason Stop Dose Admin Acetaminophen 975 mg 10/16/25 21:00 08/13/25 08:52 Acetaminophen 325 Mg Tablet PO 975 mg BID TONY Administration Amlodipine Besylate 5 mg 08/13/25 09:00 08/13/25 08:53 Amlodipine Besylate 5 Mg Tablet PO 5 mg DAILY TONY Administration Protocol Calcium Carbonate 750 mg 08/12/25 19:08 08/13/25 13:30 Calcium Carbonate 750 Mg Tab.Chew PO 750 mg QID PRN Administration Acid Reflux Cyanocobalamin 1,000 mcg 08/13/25 09:00 08/13/25 08:57 Cyanocobalamin (Vitamin B-12) 1,000 Mcg Tablet PO 1,000 mcg DAILY TONY Administration Cyclobenzaprine HCl 5 mg 08/12/25 21:00 08/12/25 20:39 Cyclobenzaprine Hcl 5 Mg Tablet PO 5 mg BEDTIME TONY Administration Ferrous Sulfate 324 mg 08/13/25 09:00 08/13/25 08:53 Ferrous Sulfate 324 Mg Tablet. PO 324 mg Q48H TONY Administration Gabapentin 100 mg 08/13/25 09:43 08/13/25 11:58 Gabapentin 100 Mg Capsule PO 100 mg BID@0900,1900 [facility] Administration Lisinopril 40 mg 08/12/25 19:00 08/12/25 20:49 Lisinopril 40 Mg Tablet PO Not Given DAILY@1900 [facility] Protocol Naproxen 250 mg 08/12/25 21:00 08/13/25 09:23 Naproxen 250 Mg Tablet PO 250 mg BID TONY Administration Omeprazole 40 mg 08/13/25 06:30 08/13/25 05:16 Omeprazole 40 Mg Capsule. PO 40 mg DAILY@0630 [facility] Administration Tolterodine Tartrate 4 mg 08/12/25 21:00 08/12/25 20:39 Tolterodine Tartrate La 4 Mg Cap.Er.24h PO 4 mg BEDTIME TONY Administration Vitamin D 25 mcg 08/13/25 09:00 08/13/25 08:52 Cholecalciferol (Vitamin D3) 25 Mcg Tablet PO 25 mcg DAILY TONY Administration Discontinued Medications Generic Name Dose Route Start Last Admin Trade Name Freq PRN Reason Stop Dose Admin Gabapentin 100 mg 08/13/25 09:58 08/13/25 11:01 Gabapentin 100 Mg Capsule PO 08/13/25 09:59 Not Given BID ONE Hydromorphone HCl 1 mg 08/12/25 17:24 08/12/25 17:32 Hydromorphone Hcl 1 Mg/Ml Syringe IVPUSH 08/12/25 17:25 1 mg ONCE ONE Administration Protocol Sodium Chloride 1,000 mls @ 999 mls/hr 08/12/25 17:24 08/12/25 18:39 Ns IV 08/12/25 18:24 Infused .Q1H1M ONE Infusion Lactulose 200 gm 08/12/25 13:26 08/12/25 14:09 Lactulose 320 Gm/480 Ml Solution MS 08/12/25 13:27 200 gm ONCE ONE Administration Ondansetron HCl 4 mg 08/12/25 17:28 08/12/25 17:32 Ondansetron Hcl 4 Mg/2 Ml Vial IVPUSH 08/12/25 17:29 4 mg ONCE ONE Administration Medical Decision Making Medical Decision Making MDM Narrative: Well-appearing 74-year-old female presents to to the emergency department today for worsening lower back pain radiating to her lower extremities with generalized weakness. She uses a walker at baseline to ambulate and has history of venous insufficiency. She is denying any chest pain or shortness of breath. She did fall a month ago and did not seek medical attention she has little bit of right-sided posterior pelvic pain for this reason I will order an L-spine and pelvic x-ray. No infectious sxs. 1325: Patient's labs returned largely unremarkable. EKG with LBBB, R 68 bpm, NSR, no prior for comparison. Trop < 7.1. ACS can be ruled out. Imaging of her L-spine in her pelvis shows a moderate amount of stool burden with no acute fractures or dislocations. Did discuss with patient this findings for then which she brings up she has been more constipated lattely passing pellets only we discussed this as a potential cause of her increased pain in her back and pelvis we will attempt an enema while here. 1533: Enema was successful but she still feels like legs are too weak to safely use her walker. PT/CM consult placed, patient to be placed in physician observation. Will continue to monitor. 1730: patient had 4 bowels movements, then in transitioning back to back, experienced lightheadedness and became pale, laid here down, hypotensive. Nurse initiated blood work. Patient also endorsed chest pain at that time. THis does not appear consistent with allergic reaction to lactulose, but likely vasovagal reaction secondary to fluid losses. She vomited 2x. IVF ordered along with zofran and dilaudid (pharmacy just informed us on shortage of morphine). Once placed in trendenleng position in one minutes patients systolic pressure went from 76 to 126. Her paleness faded. Pain continues. Work up pending. Patient taken out of phys obs. EKG without LBBB now, trop 9.1, CXR with large hiatal hernia, no obvious dissection, pulses equal and symmetric. This imaging was discussed with my attending physician Dr. Hernadez. Case signed out to evening SARAH Alicea. 1849 Philly Alicea PA-C ---> Patient's work up remains unremarkable. Patient placed into PT/CM. Observation began at 1850. 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 08/12/25 17:59 08/12/25 17:59 Labs: Lab Results 08/12/25 08/12/25 08/12/25 Range/Units 12:09 12:59 17:58 WBC 5.4 (4.8-10.8) X10*3/uL RBC 3.72 L (4.20-5.50) X10*6/uL Hgb 10.7 L D (12.0-16.0) g/dl Hct 34.2 L D (37.0-47.0) % MCV 91.9 (80.0-98.0) fL MCH 28.8 (27.0-33.0) pg MCHC 31.3 (31.0-35.0) g/dl RDW 13.4 (11.0-16.0) % Plt Count 226 (160-400) X10*3/uL MPV 8.8 L (9.4-12.3) fL Immature Gran % (Auto) 0.6 H (0.0-0.4) % Neut % (Auto) 75.0 H (45-73) % Lymph % (Auto) 18.1 L (20-40) % [place] % (Auto) 4.4 (2-11) % Eos % (Auto) 1.3 (0-4) % Baso % (Auto) 0.6 (0-2) % Lymph # (Auto) 1.0 L (1.2-4.9) X10*3/uL [place] # (Auto) 0.2 (0.1-1.2) X10*3/uL Eos # (Auto) 0.1 (0.0-0.4) X10*3/uL Baso # (Auto) 0.0 (0.0-0.2) X10*3/uL Abs Immat Gran (auto) 0.03 (0.00-0.03) X10*3/uL Absolute Neuts (auto) 4.1 (2.0-8.3) x10*3/uL Absolute Nucleated RBC 0.000 (0.0-0.012) X10*3/uL Nucleated RBC % (auto) 0.0 (0.0-0.2) /100WBC Sodium 141 (135-145) mmol/L Potassium 5.0 (3.3-5.1) mmol/L Chloride 109 H (96-108) mmol/L Carbon Dioxide 26 (22-29) mmol/L Anion Gap 11 L (12-20) BUN 29 H (9-16) mg/dL Creatinine 0.96 (0.5-1.4) mg/dL Estim Creat Clear Calc 39.4 Estimated GFR 57 Random Glucose 82 (60-115) mg/dL Lactic Acid 1.6 (0.5-2.0) mmol/L Calcium 9.5 D (8.4-10.2) mg/dL Magnesium 2.2 (1.6-2.6) mg/dL Total Bilirubin 0.2 (0.0-1.0) mg/dL AST 16 (5-31) U/L ALT 7 (0-31) U/L Alkaline Phosphatase 61 (39-117) U/L Troponin I High Sens 7.1 (<3.5-17.0) ng/L C-Reactive Protein (< or = 0.50) mg/dL C-React Prot High Sens Total Protein 6.6 (6.5-8.0) g/dL Albumin 4.1 (3.5-5.0) g/dL Lipase (8-78) U/L Hold Yellow Top Urine Color Yellow Urine Appearance Clear Urine pH 6.0 (5.0-9.0) Ur Specific [place] 1.025 (1.005-1.025) Urine Protein Negative (Neg-Trace) mg/dL Urine Glucose (UA) Negative (Negative) mg/dL Urine Ketones Negative (Negative) mg/dL Urine Blood Negative (Negative) Urine Nitrite Negative (Negative) Ur Leukocyte Esterase Trace H (Negative) Urine RBC 0-2 (0-2) /HPF Urine WBC 0-5 (0-5) /HPF Ur Squamous Epith Cells 11-20 (0-2) /HPF Urine Bacteria 1+ (None Seen) Hyaline Casts 3-5 (0-2) /LPF Influenza Type A (PCR) (Negative) Influenza Type B (PCR) (Negative) RSV RNA Qual (PCR) (Negative) SARS-CoV-2 RNA (RT-PCR) (Negative) 08/12/25 08/13/25 Range/Units 17:59 11:22 WBC 9.9 (4.8-10.8) X10*3/uL RBC 3.77 L (4.20-5.50) X10*6/uL Hgb 10.9 L (12.0-16.0) g/dl Hct 34.5 L (37.0-47.0) % MCV 91.5 (80.0-98.0) fL MCH 28.9 (27.0-33.0) pg MCHC 31.6 (31.0-35.0) g/dl RDW 13.3 (11.0-16.0) % Plt Count 226 (160-400) X10*3/uL MPV 9.2 L (9.4-12.3) fL Immature Gran % (Auto) 0.6 H (0.0-0.4) % Neut % (Auto) 88.7 H (45-73) % Lymph % (Auto) 8.2 L (20-40) % [place] % (Auto) 1.0 L (2-11) % Eos % (Auto) 1.0 (0-4) % Baso % (Auto) 0.5 (0-2) % Lymph # (Auto) 0.8 L (1.2-4.9) X10*3/uL [place] # (Auto) 0.1 (0.1-1.2) X10*3/uL Eos # (Auto) 0.1 (0.0-0.4) X10*3/uL Baso # (Auto) 0.1 (0.0-0.2) X10*3/uL Abs Immat Gran (auto) 0.06 H (0.00-0.03) X10*3/uL Absolute Neuts (auto) 8.8 H (2.0-8.3) x10*3/uL Absolute Nucleated RBC 0.000 (0.0-0.012) X10*3/uL Nucleated RBC % (auto) 0.0 (0.0-0.2) /100WBC Sodium 140 (135-145) mmol/L Potassium 3.5 D (3.3-5.1) mmol/L Chloride 114 H (96-108) mmol/L Carbon Dioxide 20 L (22-29) mmol/L Anion Gap 10 L (12-20) BUN 24 H (9-16) mg/dL Creatinine 0.78 (0.5-1.4) mg/dL Estim Creat Clear Calc 48.5 Estimated GFR > 60 Random Glucose 116 H (60-115) mg/dL Lactic Acid (0.5-2.0) mmol/L Calcium 8.5 D (8.4-10.2) mg/dL Magnesium 2.1 (1.6-2.6) mg/dL Total Bilirubin 0.2 (0.0-1.0) mg/dL AST 16 (5-31) U/L ALT < 6 (0-31) U/L Alkaline Phosphatase 56 (39-117) U/L Troponin I High Sens 9.7 (<3.5-17.0) ng/L C-Reactive Protein 0.30 (< or = 0.50) mg/dL C-React Prot High Sens Cancelled Total Protein 5.3 L (6.5-8.0) g/dL Albumin 3.3 L (3.5-5.0) g/dL Lipase 12 (8-78) U/L Hold Yellow Top See Note Urine Color Urine Appearance Urine pH (5.0-9.0) Ur Specific [place] (1.005-1.025) Urine Protein (Neg-Trace) mg/dL Urine Glucose (UA) (Negative) mg/dL Urine Ketones (Negative) mg/dL Urine Blood (Negative) Urine Nitrite (Negative) Ur Leukocyte Esterase (Negative) Urine RBC (0-2) /HPF Urine WBC (0-5) /HPF Ur Squamous Epith Cells (0-2) /HPF Urine Bacteria (None Seen) Hyaline Casts (0-2) /LPF Influenza Type A (PCR) NEGATIVE (Negative) Influenza Type B (PCR) NEGATIVE (Negative) RSV RNA Qual (PCR) NEGATIVE (Negative) SARS-CoV-2 RNA (RT-PCR) NEGATIVE (Negative) Independent Interpretation I performed an independent interpretation of an: EKG and Plain X-Ray Interpretation: LBBB no obvious STEMI on EKG. CXR hiatal hernia, no PTX or PNA Radiology Impression Discussion of test interpretation with radiology: I have reviewed the radiologist's reading. External Record Review External record reviewed: Inpatient record Tests considered The following testing was considered but not selected: CT abd/pelvis Prescription Management I considered prescription management with: Pain Medication Chronic Conditions Patient?s care impacted by: Other Social Determinants Patient?s care significantly limited by Social Determinants of Health including: Problems related to primary support group Critical Care Time Critical Care Time Critical Care Time: No Discharge Plan Discharge Clinical Impression: Weakness Chronic back pain Qualifiers: Back pain location: low back pain Back pain laterality: bilateral Sciatica presence: without sciatica Qualified Code(s): M54.50 - Low back pain, unspecified Chest pain Qualifiers: Chest pain type: other chest pain Qualified Code(s): R07.89 - Other chest pain Constipation Qualifiers: Constipation type: slow transit constipation Qualified Code(s): K59.01 - Slow transit constipation Chronic hip pain Qualifiers: Laterality: bilateral Qualified Code(s): M25.551 - Pain in right hip Patient Disposition: Xfer Other Transfer Details: Patient will be transferred to [facility] Instructions: Acute Low Back Pain (ED) Additional Instructions: Take your medications as prescribed. If you were prescribed antibiotics today, it is important that you take your medication to their entirety, do not skip any doses, do not finish them early. Follow-up with your primary care provider this week. Return to the emergency department with new or worsening symptoms. Such as fevers, chills, chest pain, shortness of breath, nausea, vomiting, dizziness, headache, vision changes, lethargy In case of emergency call 911 Prescriptions: No Action amlodipine 5 mg tablet 5 mg PO DAILY omeprazole 40 mg capsule,delayed release(DR/EC) 40 mg PO DAILY@0630 juysntbuah-lsiwobhgxhrsz-gofd 50-325-40 mg tablet 1 tab PO BID PRN (Reason: Migraine Headache) lisinopril 40 mg tablet 40 mg PO DAILY@1900 solifenacin 5 mg tablet 5 mg PO BEDTIME acetaminophen 500 mg Tablet 1,000 mg PO BID naproxen 375 mg tablet 375 mg PO BID cyanocobalamin (vitamin B-12) 1,000 mcg tablet 1,000 mcg PO DAILY Rx Instructions: Saturday gabapentin 100 mg capsule 100 mg PO TID cholecalciferol (vitamin D3) 25 mcg (1,000 unit) tablet 25 mcg PO DAILY cyclobenzaprine 5 mg tablet 5 mg PO BEDTIME calcium carbonate [Tums] 200 mg calcium (500 mg) Tablet,Chewable 200 mg PO QID PRN (Reason: Acid Reflux) ferrous sulfate 325 mg (65 mg iron) Tablet 325 mg PO Q48H Rx Instructions: PER PATIENT, ON ODD NUMBER DAYS Referrals: [facility] [Outside] Miguel Reese MD [Primary Care Provider, Internal Medicine] Print Language: Unable To Collect
[2025-08-12 12:30] LABS: Alanine Aminotransferase 7 U/L (0-31); Albumin Level 4.1 g/dL (3.5-5.0); Alkaline Phosphatase 61 U/L (39-117); Anion Gap 11 (12-20); Aspartate Amino Transferase 16 U/L (5-31); Blood Urea Nitrogen 29 mg/dL (9-16); Calcium 9.5 mg/dL (8.4-10.2); Carbon Dioxide 26 mmol/L (22-29); Chloride 109 mmol/L (96-108); Creatinine Clr Calc Pharmacy 39.4; Estimated Glomerular Filt Rate 57; Magnesium 2.2 mg/dL (1.6-2.6); Potassium 5.0 mmol/L (3.3-5.1); Sodium 141 mmol/L (135-145); Total Protein 6.6 g/dL (6.5-8.0)
--- NOTE | 2025-08-12 12:30 | PC.NURSE ---
ekg performed/labs obtained/sent to lab by tech. pt pending scans to be completed at this time. plan of care ongoing.
[2025-08-12 12:37] LABS: Troponin-I High Sensitivity 7.1 ng/L (<3.5-17.0)
[2025-08-12 13:15] LABS: Appearance Urine Clear; Glucose Urine UA Negative (Negative); PH 6.0 (5.0-9.0); Specific Gravity - Urine 1.025 (1.005-1.025); UMIC TRIGGER UACC YES
--- NOTE | 2025-08-12 13:15 | PC.NURSE ---
1:1 assist OOB and to the walker. pt ambulated to the restroom independently while utilizing walker - steady gait noted. urine obtained/sent to lab. pt to XR at this time. plan of care ongoing.
[2025-08-12] MEDS: Lactulose 320 GM/480 ML SOLUTION 200 GM PR (14:09)
--- OUTSIDE RECORDS SUMMARY | 2025-08-12 15:16 | XMS_ITS | Clinical Summary ---
Author Organization [facility] Address [address] [facility] [facility] [address] [place] [address] Phone Care Team Providers Care Publication Designer Name Role Phone Miguel Reese MD Primary Care Provider [phone] Vandana Jose DPM Unavailable [phone] Allergies Active Allergy Reactions Criticality Noted Date Comments Atenolol Palpitations Low 03/31/2018 Celecoxib Unknown 03/31/2018 Fluticasone Unknown 03/31/2018 Meloxicam Dizziness 01/09/2024 Also ineffective Penicillins Hives 03/31/2018 Medications acetaminophen (TYLENOL) 500 MG tablet Take 1,000 mg by mouth 2 (two) times a day. Active albuterol 90 mcg/actuation inhalerIndications :Bronchospasm Inhale 2 puffs into the lungs every 6 (six) hours as needed for wheezing. 6.7 g 3 05/07/20 22 Active zinc oxide-cod liver oil (DESITIN) 40 % OintIndications:Pr essure injury of right buttock, stage 1 Apply topically as needed. 60 g 1 05/27/20 23 Active calcium carbonate (TUMS) 500 mg (200 mg elemental) chewable tablet Take 1 tablet by mouth as needed. 05/29/20 24 Active omeprazole (PRILOSEC) 40 MG capsuleIndications :Gastroesophageal reflux TAKE 1 CAPSULE(40 MG) BY MOUTH DAILY 90 capsule 3 11/23/19 25 Active lisinopril (PRINIVIL,ZESTRIL) 40 MG tabletIndications: Essential hypertension TAKE 1 TABLET BY MOUTH EVERY DAY 90 tablet 2 11/23/19 25 Active cyclobenzaprine (FLEXERIL) 5 MG tabletIndications: Acute bilateral low back pain without sciatica TAKE 1 TABLET(5 MG) BY MOUTH TWICE DAILY NEEDED FOR BACK SPASM 180 tablet 11/23/19 25 Active Additional Information Patient taking differently: 5 mg Oral Daily as needed, Reported on 02/16/2025 cyanocobalamin, vitamin B-12, 1000 MCG tabletIndications: Low serum vitamin B12 TAKE 1 TABLET BY MOUTH EVERY DAY 90 tablet 3 11/23/19 25 Active Additional Information Patient taking differently:1,000 mcg Oral3 times weekly (MWF), Reported on 02/24/2025 cholecalciferol (VITAMIN D3) 25 MCG (1,000 unit) tabletIndications: Vitamin D deficiency TAKE 1 TABLET BY MOUTH EVERY DAY 100 tablet 3 11/23/19 25 Active solifenacin (VESICARE) 5 MG tabletIndications: Urinary incontinence, unspecified type Take 1 tablet (5 mg total) by mouth daily. 90 tablet 3 11/24/19 25 Active gabapentin (NEURONTIN) 100 MG capsuleIndications :Chronic bilateral low back pain without sciatica Take 1 capsule (100 mg total) by mouth 3 (three) times a day. 270 capsule 3 11/24/19 25 Active amLODIPine (NORVASC) 5 MG tabletIndications: Essential hypertension Take 1 tablet (5 mg total) by mouth daily. 90 tablet 3 11/24/19 25 Active ferrous sulfate 325 mg (65 mg [place] iron) tabletIndications: Iron deficiency anemia, unspecified iron deficiency anemia type Take 1 tablet (325 mg total) by mouth every other day. 45 tablet 1 11/29/19 25 Active polyethylene glycol (MIRALAX) 17 gram/dose powderIndications: Constipation, unspecified constipation type Take 17 g by mouth daily. 1530 g 3 12/02/19 25 026 Active butalbital-acetami nophen-caffeine (FIORICET, ESGIC) 50-325-40 mg per tabletIndications: Chronic tension-type headache, not intractable TAKE 1 TABLET BY MOUTH TWICE DAILY NEEDED 50 tablet 2 04/20/20 25 Active naproxen (NAPROSYN) 375 MG tabletIndications: Primary osteoarthritis involving multiple joints TAKE 1 TABLET(375 MG) BY MOUTH TWICE DAILY WITH MEALS 180 tablet 3 04/20/20 25 Active Active Problems Problem Noted Date Diagnosed Date Urinary incontinence 11/24/2024 FTT (failure to thrive) in adult 05/07/2024 Overview (05/07/2024): ED [facility] 04/14/24 - sacral wounds, foot pain and FTT were admitting CC- unable to care for herself Asthma 12/01/2019 Edema 06/15/2019 Gastroesophageal reflux 06/15/2019 Immunizations Immunization Administration Dates Next Due COVID-19 (Pre-08/19) Pfizer Vaccine, mRNA, PF 03/07/2021,02/14/2021 INFLUENZA, SPLIT VIRUS, TRIV ALENT W/ PRESERVATIVE IM 07/14/2024,08/15/2013,07/10/2012,2010 Influenza High-Dose Quadriva lent Preservative Free IM 09/02/2020 Influenza High-Dose Trivalen t Preservative Free IM 07/28/2019,07/30/2017,08/02/2016,2014,10/07/2014 Td (adult) 5 Lf Tetanus Toxo id, PF, Adsorbed 11/28/2000 Family History Medical History Relation Comments Diabetes Brother 1 Heart disease Brother 1 Hypertension Brother 1 Diabetes Brother 2 Heart disease Brother 2 Hypertension Brother 2 Diabetes Father Heart disease Father Hypertension Father Relation Status Comments Brother 1 Alive legally blind Brother 2 Alive Father Social History Tobacco Use Types Packs/Day Years Used Date Smoking Tobacco: Former Cigarettes 0.5 19.7 1 962 - 06/1981 Smokeless Tobacco: Never Tobacco Cessation:Counseling Given: Not Answered Alcohol Use Standard Drinks/Week Comments Not Currently 0 (1 standard drink = 0.6 oz pur e alcohol) none since 2019 Education Answer Date Recorded Are you interested in more education? Not on nga e 02/22/2023 Are you concerned about learning? Not on file 02/22/2023 No 02/22/2023 No 02/22/2023 Digital Access Answer Date Recorded No 03/23/2023 No 03/23/2023 Reliable internet access at home? Not on file 03/23/2023 Device with a working camera? Not on file Comments No Sex and Gender Information Value Date Recorded Sex Assigned at Female 05/07/2022 2:54 PM EDT Legal Sex Female 10:05 PM EDT Gender Identity Female 05/07/2022 2:54 PM EDT Sexual Orientation Straight 05/07/2022 2: 54 PM EDT Last Filed Vital Signs Vital Sign Reading Time Taken Comments Blood Pressure 148/74 02/16/2025 1:57 PM EDT Pulse 56 02/16/2025 1:57 PM EDT Temperature 37 C (98.6 F) 02/16/2025 1:57 PM EDT Respiratory Rate 16 02/16/2025 1:57 PM EDT Oxygen Saturation 100% 02/16/2025 1:57 PM EDT Inhaled Oxygen Concentration - - Weight 51.8 kg (114 lb 3.2 oz) 02/16/2025 1:57 P M EDT Height 160 cm (5' 2.99 ) 02/16/2025 1:57 PM EDT Body Mass Index 20.23 02/16/2025 1:57 PM EDT Plan of Treatment Upcoming Encounters Date Type Department Care Team (Late st Contact Info) Description 08/30/2025 2:00 PM EST Office Visit [facility] Internal Medicine [address] [place] [address] Miguel Reese MD [address] [place] [address] [email or web address] Health Maintenance Due Date Last Done Comments PNEUMOCOCCAL VACCINES (50+ years) (1 of 2 - PCV) 1967 ZOSTER VACCINES (1 of 2) 1998 Adult Td,Tdap Booster 11/28/2010 11/28/2000 RSV VACCINE (1 - 1-dose 75+ series) 2023 DEPRESSION SCREENING 05/27/2024 05/27/2023 INFLUENZA VACCINE (#1) 2025 , 09/02/2020, 09/02/2020, Additional history exists COVID-19 VACCINE ( - 2024- season) 2025 03/07/2021, 02/14/2021 BLOOD PRESSURE 08/18/2025 02/16/2025 CREATININE LEVEL 02/16/2026 02/16/2025, , 01/11/2025, Additional history exists POTASSIUM LEVEL 02/16/2026 02/16/2025, 12/26, 01/11/2025, Additional history exists LIPID PANEL 11/24/2029 11/24/2024, 04/29, 05/27/2023, Additional history exists OSTEOPOROSIS SCREENING INITIAL (ONE-TIME) Completed 02/24/2010 HEPATITIS C SCREENING Completed 06/24/2019, 019 SMOKING STATUS SCREENING (Once After 26 Yrs) Completed 02/16/2025 HEPATITIS A VACCINES Aged Out No long er eligible based on patient's age to complete this topic HIB VACCINES Aged Out No longer eligi ble based on patient's age to complete this topic MENINGOCOCCAL VACCINES (ACWY) Aged Out No longer eligible based on patient's age to complete this topic MENINGOCOCCAL VACCINES (B) Aged Out N o longer eligible based on patient's age to complete this topic Medical Devices Not on file Procedures Procedure Name Priority Date/Time Associated Diagnosis Comments COMPREHENSIVE METABOLIC PANEL Routine 02/16/2025 2:52 PM EDT Essential hypertension LIPID PANEL Routine 11/24/2024 2:45 PM EST Benign essential hypertension HEPATITIS C ANTIBODY, QUALITATIVE Routine 06/24/2019 OUTSIDE BONE DENSITY SCREENING Routine 02/24/2010 from Last 3 Months or Most Recently Relevant to Health Maintenance Results * (ABNORMAL) Comprehensive metabolic panel (02/16/2025 2:52 PM EDT) SODIUM 140 133 - 146 mmol/L [facility] POTASSIUM 4.0 3.3 - 5.1 mmol/L [facility] CHLORIDE 104 96 - 108 mmol/L [facility] CO2 25 21 - 35 mmol/L [facility] BUN 27(H) 6 - 19 mg/dL [facility] CREATININE 1.00 0.5 - 1.5 mg/dL [facility] GLUCOSE 92 70 - 99 mg/dL [facility] ALBUMIN 4.5 3.9 - 4.8 g/dL [facility] TOTAL PROTEIN 7.3 6.5 - 8.0 g/dL [facility] CALCIUM 10.0 8.4 - 10.3 mg/dL [facility] ALKALINE PHOSPHATASE 61 39 - 117 U/L [facility] TOTAL BILIRUBIN <0.2 0.0 - 1.2 mg/dL [facility] AST 15 0 - 37 U/L [facility] ALT 9 0 - 40 U/L [facility] GLOBULIN 2.8 1 - 4.8 g/dL [facility] EGFR 58(L) >59 mL/min/1.7 3m2 [facility] Comment:Estimated glomerular filtration rate calculated using the CKD-EPI refit equation. ANION GAP 15 10 - 20 mmol/L [facility] Blood 02/16/2025 2:52 PM EDT 02/16/2025 2:55 PM EDT us Miguel Reese MD LAB BLOOD ORDERABLES Final Re sult [address] [id number] * (ABNORMAL) Lipid panel (11/24/2024 2:45 PM EST) HDL 76 mg/dL [facility] Comment: Interpretation <40 mg/dL: Low HDL cholesterol (major risk factor for CHD) Greater than or equal to 60 mg/dL: High HDL cholesterol ( negative risk factor for CHD) HDL - cholesterol is affected by a number of factors, e.g. smoking, excerise, hormones, sex and age. CHOLESTEROL 186 0 - 240 mg/dL [facility] TRIGLYCERIDES 156 30 - 160 mg/dL [facility] LDL 79 50 - 129 mg/dL [facility] Comment: LDL levels in terms of risk for coronary heart disease: <100 mg/dL: Optimal 100-129 mg/dL: Near or above optimal 130-159 mg/dL: Borderline high 160-189 mg/dL: High >190 mg/dL: Very High CARDIAC RISK RATIO 2.4(L) 3.3 - 4.4 [facility] Blood 11/24/2024 2:45 PM EST 11/24/2024 2:51 PM EST us Miguel Reese MD LAB BLOOD ORDERABLES Final Re sult [facility] [address] [place] [address] * Hepatitis C antibody, qualitative (06/24/2019) Miguel Reese MD LAB BLOOD ORDERABLES Final Re sult * OUTSIDE BONE DENSITY SCREENING (02/24/2010) [facility] Signature BONE DENSITY SCREENING - EXTERNAL osteopenia us Historical Provider HEALTH MAINTENANCE Final Result from Last 3 Months or Most Recently Relevant to Health Maintenance Insurance [place] [id number] [facility] SAFETY NET FULL [facility] MEDEX SUPPLE[facility] & B [facility] FULL [employer] MEDEX SUPPLEMENT [facility] MED[facility] PART A & B [facility] NET FULL [facility] MEDEX SUPPLEMENT MEDICARE PART A & B [facility] FULL MEDEX SUPPLEMENT MEDICARE PART A & B HEALTH SAFETY NET FULL MEDEX SUPPLEMENT [facility] MEDIC[facility] PART A & B HEALTH SAFETY NET FULL [employer] MEDEX SUPPLEMENT MEDICARE PART A & B HEALTH SAFETY NET FULL Member Subscriber Plan / Payer (Ef fective 2024-Present) Name:Mera Che Relation to Subscriber:Self Name:Mera Che Payer ID:Not on file Group ID:Not on file Type:Medicaid Address: [address] MEDEX SUPPLEMENT [facility] MED[facility] PART A & B [facility] NET FULL [facility] MEDIC[facility] PART A & B [facility] SAFETY NET FULL [facility] MEDEX SUPPLEMENT [facility] [employer] Care Teams Publication Designer Relationship Specialty Start Date End Date Miguel Reese MD [address] [place] [address] [email or web address] PCP - General 10/31/17 Vandana Jose DPM [address] [place] [id number] Podiatry 09/02/20 Additional Source Comments The information contained in this document represents components of the legal health record. It is not the complete legal health record.[facility]
--- OUTSIDE RECORDS SUMMARY | 2025-08-12 15:16 | XMS_ITS | Patient Health Record ---
Author Organization [facility] Address [address] [place] [phone] Care Team Providers Care Coding Advisor Name Role Phone Miguel Reese MD Primary Care Provider Matt Smith Jr Reason For Referral No Information Encounters Encounter Location Date Provider Diagnosis [facility] [address] [place] [phone] 02/25/2025 Matt Rodríguez Jr [facility] [address] [place] [phone] 04/13/2025 Matt Rodríguez Jr Plan Of Treatment No Information Insurance Providers Payer Name Payer Address Payer Phone Subscriber Number Group Number Insured Name Patient Relationship to Insured Coverage Start Date Coverage End Date MEDICARE OF [place] [address] [place] [address] NIMISHA SALAMANCA Self - patient is the insured MEDEX ATTN CLAIMS [address] [place] [address] [phone] NIMISHA SALAMANCA Self - patient is the insured
--- OUTSIDE RECORDS SUMMARY | 2025-08-12 15:16 | XMS_ITS | Patient Health Record ---
[facility] Organization [facility] Address [address] [facility] [place] [address] Care Team Providers Care Sequins Winder Name Role Phone Miguel Reese MD Primary Care Provider Unavaila Vandana Mason Unavailable [phone] Allergies Allergen (clinical drug ingredient) Drug/Non Drug Allergy documented on EMR Reaction Allergy Type Onset Date Status Penicillin hives Drug Allergy Active Results Component Value Reference Range Notes X ray : Foot, right 3V Reviewed date:08/02/2025 07:10:17 PM Interpretation:See Examination above Performing Lab: Notes/Report: See Examination above Reason For Referral No Information Medications Medication SIG (Take, Route, Frequency, Duration) Notes Start Date End Date Status Spironolactone 100 MG 1 tablet Orally On ce a day; Duration: 30 day(s) Active Omeprazole 40 MG 1 capsule Orally Onc e a day; Duration: 30 day(s) Active amLODIPine Besylate 5 MG 1 tablet Orally Once a day Active Lisinopril 20mg 1 tablet Orally Once a day; Duration: 30 day(s) Active Zomig PRN Active Inderal [place] Not-Takin g Claritin PRN Active vitamin D Not-Taking Fioricet Active Propranolol HCl ER 120 MG 1 capsule Oral ly Once a day; Duration: 30 day(s) Not-Taking Compression Stockings Active Carvedilol 25 MG 0.5 tab Orally twice a day Not-Taking Tylenol Orally Active VESIcare Orally; Duration: 30 day(s) Not-Taking Solifenacin Succinate Active Cyclobenzaprine HCl 5 MG Oral; Duration: 90 Days Active Gabapentin 100 MG 1 capsule Orally Onc e a day; Duration: 30 day(s) Active Ammonium Lactate 12 % 1 application Externally to affected areas of dry skin to feet except for between the toes Twice a day; Duration: 30 days Active Immunizations Vaccine Route Administration Date Status Comme nts Influenza Unknown 10/16/2021 Refused Influenza Unknown 08/28/2024 Administered COVID-19 Pfizer BioNTech Vaccine Unknown 02/14/2021 Administered Second Dose: 03/07/21 Social History Tobacco Use: Social History Observation Description Date Details (start date - stop date) Never Smoker NA - NA Tobacco use other than smoking: Question Answer Notes Are you an other tobacco user? No Tobacco Control (Standard) Question Answer Notes Tobacco use: Nonsmoker Additional Findings: Tobacco non-user Current no nsmoker AUDIT-C (Standard) Question Answer Notes Did you have a drink containing alcohol in the p ast year? 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) Active confirmed Problem Osteoarthritis of midtarsal joint of right foot (0391543144710817) Osteoarthritis of midtarsal joint of right foot (M19.071) Active confirmed Vital Signs Blood pressure diastolic 80 mm Hg 08/02/2025 Height 5 ft 3 in in 08/02/2025 Blood pressure systolic 135 mm Hg 08/02/2025 Weight 114 lbs 08/02/2025 BMI 20.19 kg/m2 08/02/2025 Procedures Procedure Date Ordered Date Performed Result Body Sit e 18132-MLCFNSF NAIL, 6 OR MORE 12/07/2024 N/A 33765-Qgme Destruction, 1-14 12/07/2024 N/A 17767-Hsemirqu Plate 12/07/2024 N/A 46818-Clgywnyw Plate Each Additional 12/07/2024 N/A 12090-FMZDKQU SKIN/TISSUE 12/07/2024 N/A 34587-MWKCYWR NAIL, 6 OR MORE 04/12/2025 N/A 31432-Lblv Destruction, 1-14 04/12/2025 N/A 19364-QXXV SKIN LESIONS, OVER 4 04/12/2025 N/A 37663-KCRKCRW NAIL, 6 OR MORE 08/02/2025 N/A 40412-Ptvv Destruction, 1-14 08/02/2025 N/A 76720-UBID SKIN LESIONS, OVER 4 08/02/2025 N/A Encounters Encounter Location Date Provider Diagnosis [address] [phone] 12/07/2024 Vandana Black Other viral warts B0 7.8 ; Other hammer toe(s) (acquired), left foot M20.42 ; Tinea unguium B35.1 ; Pain in left foot M79.672 ; Pain in right toe(s) M79.674 ; Pain in left toe(s) M79.675 ; Other hammer toe(s) (acquired), right foot M20.41 ; Arthritis of joint of lesser toe, right M19.071 ; Xerosis of skin L85.3 ; Ingrown nail L60.0 ; Ulcer of right midfoot with fat layer exposed L97.412 and Skin ulcer of toe of right foot, limited to breakdown of skin L97.[address] [address] 04/12/2025 Vandana Black Other viral warts B0 7.8 ; Atherosclerosis of [place] artery of both lower extremities, with unspecified presence of clinical manifestation I70.203 ; Tinea unguium B35.1 ; Pain in left foot M79.672 ; Pain in right toe(s) M79.674 and Pain in left toe(s) M79.[address] [address] 08/02/2025 Vandana Black Other viral warts B0 7.8 ; Atherosclerosis of [place] artery of both lower extremities, with unspecified presence of clinical manifestation I70.203 ; Tinea unguium B35.1 ; Pain in left foot M79.672 ; Pain in right toe(s) M79.674 ; Pain in left toe(s) M79.675 ; Pain in right foot M79.671 ; Pain in right ankle and joints of right foot M25.571 ; Bursitis of right foot M77.51 ; Osteoarthritis of midtarsal joint of right foot M19.071 and Pronation of right foot M21.6X1 [facility] [address] [address] 08/27/2024 Vandana Jose Assessments Encounter Date Diagnosis (ICD Code) Assessment Notes Treatment Notes Treatment Clinical Notes Section Notes 12/07/2024 Other viral warts (ICD-10 - B07.8) 12/07/2024 Other hammer toe(s) (acquired), left foot (ICD-10 - M20.42) 04/12/2025 Other viral warts (ICD-10 - B07.8) 04/12/2025 Atherosclerosis of [place] artery of both lower extremities, with unspecified presence of clinical manifestation (ICD-10 - I70.203) Q7(A), Q8(2B), Q9(1B,2C) 08/02/2025 Other viral warts (ICD-10 - B07.8) 08/02/2025 Tinea unguium (ICD-10 - B35.1) 04/12/2025 Tinea unguium (ICD-10 - B35.1) 08/02/2025 Atherosclerosis of [place] artery of both lower extremities, with unspecified presence of clinical manifestation (ICD-10 - I70.203) Q7(A), Q8(2B), Q9(1B,2C) 12/07/2024 Tinea unguium (ICD-10 - B35.1) 12/07/2024 Pain in left foot (ICD-10 - M79.672) 04/12/2025 Pain in left foot (ICD-10 - M79.672) 08/02/2025 Pain in left foot (ICD-10 - M79.672) 04/12/2025 Pain in right toe(s) (ICD-10 - M79.674) 08/02/2025 Pain in right toe(s) (ICD-10 - M79.674) 12/07/2024 Pain in right toe(s) (ICD-10 - M79.674) 12/07/2024 Pain in left toe(s) (ICD-10 - M79.675) 08/02/2025 Pain in left toe(s) (ICD-10 - M79.675) 04/12/2025 Pain in left toe(s) (ICD-10 - M79.675) 12/07/2024 Other hammer toe(s) (acquired), right foot (ICD-10 - M20.41) 08/02/2025 Pain in right foot (ICD-10 - M79.671) 12/07/2024 Arthritis of joint of lesser toe, right (ICD-10 - M19.071) 08/02/2025 Pain in right ankle and joints of right foot (ICD-10 - M25.571) 08/02/2025 Bursitis of right foot (ICD-10 - M77.51) 12/07/2024 Xerosis of skin (ICD-10 - L85.3) 12/07/2024 Ingrown nail (ICD-10 - L60.0) 08/02/2025 Osteoarthritis of midtarsal joint of right foot (ICD-10 - M19.071) 08/02/2025 Pronation of right foot (ICD-10 - M21.6X1) 12/07/2024 Ulcer of right midfoot with fat layer exposed (ICD-10 - L97.412) 12/07/2024 Skin ulcer of toe of right foot, limited to breakdown of skin (ICD-10 - L97.511) Plan Of Treatment Pending Test Test Name Order Date X ray : Foot, right 2V 04/01/2023 X ray : Foot, left 3V 06/11/2019 87598-TTILRVD NAIL, 6 OR MORE 08/15/2020 97478-SFVNELU NAIL, 6 OR MORE 11/21/2020 50542-ISHVGUA NAIL, 6 OR MORE 02/13/2021 98687-IOPHAQU NAIL, 6 OR MORE 05/22/2021 21847-FSGAEHV NAIL, 6 OR MORE 10/16/2021 96547-XZOQNYJ NAIL, 6 OR MORE 01/29/2022 31031-MYSQETN NAIL, 6 OR MORE 05/28/2022 63248-WFYDYCE NAIL, 6 OR MORE 09/24/2011 40340-KXYCLKJ NAIL, 6 OR MORE 08/04/2015 32543-VMNZGBD NAIL, 6 OR MORE 04/26/2016 96270-DSVQMJM NAIL, 6 OR MORE 03/12/2017 92706-GVRIQON NAIL, 6 OR MORE 06/11/2019 96353-CNBWALV NAIL, 6 OR MORE 04/01/2023 46610-WCMQZJL NAIL, 6 OR MORE 08/27/2022 99242-NCHDOSF NAIL, 6 OR MORE 12/07/2024 88042-GXPIVAT NAIL, 6 OR MORE 04/12/2025 43891-SVMUGAN NAIL, 6 OR MORE 08/02/2025 37408-Sqkv Destruction, 1-14 08/02/2025 51067-Qevu Destruction, 1-14 12/07/2024 37243-Gtww Destruction, 1-14 04/12/2025 40533-Ihtq Destruction, 1-14 04/01/2023 17091-Qpzq Destruction, 1-14 08/15/2020 74991-Yfid Destruction, 1-14 08/27/2022 35362-Syfv Destruction, 1-14 05/28/2022 78721-Wlqk Destruction, 1-14 01/29/2022 47837-Uait Destruction, 1-14 10/16/2021 05319-Jyqz Destruction, 1-14 05/22/2021 08589-Zshl Destruction, -14 02/13/2021 60963-Rqyv Destruction, 1-14 11/21/2020 78077-Twlevndi Plate 08/04/2015 26111-Rkbmfdzm Plate 03/18/2014 12189-Hxtstjev Plate 06/24/2014 02547-Xtipfowu Plate 01/06/2015 25666-Etwifshw Plate 04/21/2015 88270-Qjnnzpce Plate 12/07/2024 36738-Xvcyicsd Plate Each Additional 07/2025 16265- Debride <25 sq cm 06/11/2019 94818- Debride <25 sq cm 08/15/2020 06762-VCRMDAE SKIN/TISSUE 12/07/2024 85658 I&D ABSCESS- SIMPLE,SINGLE 022 93403-WAID SKIN LESIONS, OVER 4 12/25/19 13 13389-WPJB SKIN LESIONS, OVER 4 04/12/20 25 81569-FXPQ SKIN LESIONS, OVER 4 08/02/20 25 59617-ELCC SKIN LESIONS, 2 TO 4 02/21/20 12 77750-OQFW SKIN LESIONS, 2 TO 4 08/06/20 13 13928-JTCI NAIL(S) 06/16/2012 84173-KKUZ NAIL(S) 12/25/2012 86021-UZHL NAIL(S) 04/06/2013 G1252-PEAWDVTK DYSTROPHIC NAILS ANY # X8707-REJMAQKI DYSTROPHIC NAILS ANY # Next Appt Details Provider Name:Vandana Jose , 11/29/2025 01:30:00 PM, [address] [place] [address], [phone], Insurance Providers Payer Name Payer Address Payer Phone Subscriber Number Group Number Insured Name Patient Relationship to Insured Coverage Start Date Coverage End Date Medicare National Govt [employer] [facility] [address] [place] [address] [id number] Mera Che Self - patient is the insured Med[employer] Blue Shield [address] [place] [address] [phone] [id number] Mera Che Self - patient is the insured Medical (General) History Medical History History ICD Code reflux measles hypertension headaches/migraines Arthritis Neuropathy Soft tissue damage Anemia Kidney disease Venous insufficiency I87.2 Age related osteoporosis, unspecified pa thological fracture presence M81.0 Other hammer toe(s) (acquired), left rin t M20.42 Other hammer toe(s) (acquired), right fo ot M20.41 Surgical History Surgery Date(Month/Year) heart surgery unspecified 1995 hysterectomy 1989 Cataract Surgery 03/17, 04/17 Hospitalization History Reason Date(Month/Year) [facility]- stomach pains, infected colon 01/19 [facility]- couldn't walk, dehydration- rehab 0 01/2023
--- NOTE | 2025-08-12 15:25 | PC.NURSE ---
lactulose enema administered per provider order w/ good effect. large BM noted to commode. pericare performed. vss and up to date. pt reports decreased pain in lower back s/p enema administration. pt otherwise concerned about going home d/t increased weakness/difficulty ambulating. provider notified/aware of pt's expressed concerns.
--- NOTE | 2025-08-12 17:28 | ECG_ITS ---
Test Reason : CP Blood Pressure : */* mmHG Vent. Rate : 66 BPM Atrial Rate : 66 BPM P-R Int : 152 ms QRS Dur : 120 ms QT Int : 460 ms P-R-T Axes : 56 27 54 degrees QTcB Int : 482 ms Normal sinus rhythm Left bundle branch block Abnormal ECG When compared with ECG of 12-Aug-2025 11:51, No significant changes seen Referred By: Meliza Moore Electronically Signed By: Raji Fu
--- NOTE | 2025-08-12 17:37 | PC.NURSE ---
pt reported needing to have another BM s/p enema administration. while on commode - pt starting c/o 08/06 upper abd w/ associated nausea. pt then noted to have an episode of loose/dark stool w/ multiple episodes of vomiting. pt became extremely pale and dizzy. pt assisted into bed. pt noted to be hypotensive in RUE at 65/47. BP obtained onLUE displaying 75/40. 18gIV placed in the left AC - additional labs obtained. provider bedside to assess. pt placed in trendelenburg position. NS infusing wide open via pressure bag. BP starting to improve w/ IVF resuscitation. all other vitals stable/up to date.
[2025-08-12 18:05] LABS: MANUAL DIFF FLAG NO
[2025-08-12 18:06] LABS: Hematocrit 34.5 % (37.0-47.0); Hemoglobin 10.9 g/dl (12.0-16.0); Imm Gran Abs Auto 0.06 X10*3/uL (0.00-0.03); Imm Gran Pct Auto 0.6 % (0.0-0.4); Lymphocytes Absolute Auto 0.8 X10*3/uL (1.2-4.9); Mean Corpuscular HGB Conc 31.6 g/dl (31.0-35.0); Mean Corpuscular Hemoglobin 28.9 pg (27.0-33.0); Mean Corpuscular Volume 91.5 fL (80.0-98.0); NRBC Abs Auto 0.000 X10*3/uL (0.0-0.012); NRBC Pct Auto 0.0 /100WBC (0.0-0.2); Platelet Count 226 X10*3/uL (160-400); Red Blood Count 3.77 X10*6/uL (4.20-5.50); White Blood Count 9.9 X10*3/uL (4.8-10.8)
[2025-08-12 18:28] LABS: Troponin-I High Sensitivity 9.7 ng/L (<3.5-17.0)
[2025-08-12 18:30] LABS: Alanine Aminotransferase < 6 U/L (0-31); Albumin Level 3.3 g/dL (3.5-5.0); Alkaline Phosphatase 56 U/L (39-117); Anion Gap 10 (12-20); Aspartate Amino Transferase 16 U/L (5-31); Blood Urea Nitrogen 24 mg/dL (9-16); Calcium 8.5 mg/dL (8.4-10.2); Carbon Dioxide 20 mmol/L (22-29); Chloride 114 mmol/L (96-108); Creatinine Clr Calc Pharmacy 48.5; Estimated Glomerular Filt Rate > 60; Lipase 12 U/L (8-78); Magnesium 2.1 mg/dL (1.6-2.6); Potassium 3.5 mmol/L (3.3-5.1); Sodium 140 mmol/L (135-145); Total Protein 5.3 g/dL (6.5-8.0)
--- NOTE | 2025-08-12 19:07 | MHC.CM.ED ---
CM met with patient to discuss discharge planning. Pt c/o weakness, difficulty ambulating, constipation. A&Ox4 Pt lives alone. Uses a walker. Has a [employer]IOR [employer]INE[employer] twice a week. Active with [facility]. [facility] supplied by [facility]. Pt is agreeable to [facility]. Awaiting PT evaluation. [facility] is first choice. HCP on file. PCP verified. Will place local referrals.
--- NOTE | 2025-08-12 19:10 | PHA.MEDREC ---
Pharmacy Consult ? Medication Reconciliation Pharmacy has completed the medication reconciliation. Reviewed med rec completed by nursing, REGIS gabapentin per [place]
--- NOTE | 2025-08-12 20:49 | PC.NURSE ---
lisinopril held d/t soft BPs
--- NOTE | 2025-08-12 21:59 | PC.NURSE ---
report given to overflow RN. pt aware of plan of care
[2025-08-13 05:28] VITALS: BP 152/60; PULSE 100; RESP 16; TEMP 36.9; O2SAT 97
--- NOTE | 2025-08-13 07:21 | PC.NURSE ---
Accepted care of pt. Pt sleeping. RR regular and easy, NAD. Skin pink.
[2025-08-13 08:34] VITALS: BP 128/71
[2025-08-13 08:43] VITALS: BP 128/71; PULSE 90; RESP 16; TEMP 37.6; O2SAT 100
[2025-08-13 08:53] VITALS: BP 128/71
[2025-08-13] MEDS: Ferrous Sulfate 324 MG TABLET.DR PO (08:53)
--- NOTE | 2025-08-13 11:36 | MHC.CM.ED ---
Addendum entered by Helen Clarke 08/13/25 14:04: [employer] approval obtained from [facility]. Patient can leave at 5pm. Jason FELDER booked. [facility] with chart. Patient, Angeles ALMEIDA and Inocencia SMITH aware. Original Note: Patient remains in ER overflow. [facility] is able to offer a bed. MDS and Level 1 completed, sent to [facility] and [facility]. Will need [employer] approval from [facility] before patient can transfer to SNF. Continue to monitor for d/c needs.
--- NOTE | 2025-08-13 12:38 | PC.NURSE ---
Pt has 1/4 cm round stage 2 pressure wound left buttock. Allevyn dressing applied. Area not warm and not draining. Provider notified. Pt states it is chronic and had healed before she came to hospital this time. Left buttock exactly opposite has old scar in same place but skin intact.
[2025-08-13 12:48] LABS: Resp Syncy Virus RNA Qual PCR NEGATIVE (Negative); SARS COV2 PCR INHOUSE NEGATIVE (Negative)
[2025-08-13 13:29] VITALS: BP 114/56; PULSE 92; RESP 18; TEMP 37; O2SAT 100
--- NOTE | 2025-08-13 14:42 | PC.NURSE ---
Pt A&O X4 VSS Aware of plan for DC to [facility] [place] at 5pm today per CM.
--- NOTE | 2025-08-13 15:10 | PC.NURSE ---
Report given to nurse Green at [facility] [place]
[2025-08-13 17:02] VITALS: BP 114/56; PULSE 92; RESP 18; TEMP 37; O2SAT 100
== END 2025-08-13 17:03 | disposition other institution (70) ==
PROVIDERS: Physician Assistant; Physician Assistant Medical; Emergency Provider Emergency Medicine; PCP Internal Medicine
DX: M54.50 Low back pain, unspecified (principal); R07.89 Other chest pain; K59.01 Slow transit constipation; M25.551 Pain in right hip; R10.21 Pelvic and perineal pain right side; R26.2 Difficulty in walking, not elsewhere classified; Z03.818 Encounter for observation for suspected exposure to other biological agents ruled out; Z79.899 Other long term (current) drug therapy
CPT/HCPCS: 36415; 71045; 72100; 72170; 80053; 81001; 83605; 83690; 83735; 84484; 85025; 86140; 87040; 87637; 93005; 97161; 99285; J1171; J2405

== ENCOUNTER → 2025-08-12 11:51 | Outpatient (BNV) | payer MEDICARE, MEDICAID, SELFPAY | PROVIDERS: Emergency Provider Emergency Medicine; PCP Internal Medicine; Visit Provider Internal Medicine Cardiovascular Disease | DX: I45.10 Unspecified right bundle-branch block (principal) | CPT/HCPCS: 93010 ==

== ENCOUNTER → 2025-08-12 12:22 | Outpatient (BNV) | payer MEDICARE, MEDICAID, SELFPAY | PROVIDERS: Emergency Provider Emergency Medicine; PCP Internal Medicine; Visit Provider Radiology Diagnostic Radiology | DX: M43.16 Spondylolisthesis, lumbar region (principal) | CPT/HCPCS: 72100 ==